=== PATIENT | male | born 1970 | race African-American/Black ===

== ENCOUNTER 2018-08-17 04:41 | Observation (INO) | payer SELFPAY ==
[~2018-08-17] VITALS: Ht 185.4 cm; Wt 129.3 kg
[~2018-08-17 04:41] MED LIST: AMLO10TA6 PO; CITA20TA6 PO; CLON0.1T PO; CLON1PAT2 TD; LISI1TAB3 PO; METH4TAB2 PO
[2018-08-17 05:06] LABS: BASO # 0.1 x10^3/uL (0.0-0.2); BASO % 1 % (0-3); EOS # 0.2 x10^3/uL (0.0-0.7); EOS % 2 % (0-3); HEMATOCRIT 43.4 % (39.0-53.0); HEMOGLOBIN 14.6 g/dL (13.0-17.5); LYMPH # 2.7 x10^3/uL (1.0-4.8); LYMPH % 30 % (24-48); MEAN CORPUSCULAR HEMOGLOBIN 28 pg (25-35); MEAN CORPUSCULAR HGB CONC 34 g/dL (31-37); MEAN CORPUSCULAR VOLUME 83 fL (79-100); MONO # 0.9 x10^3/uL (0.0-1.1); MONO % 10 % (0-9); NEUT # 5.2 x10^3uL (1.8-7.7); NEUT % 58 % (31-73); PLATELET COUNT 262 x10^3/uL (140-400); RED BLOOD COUNT 5.21 x10^6/uL (4.30-5.70); RED CELL DISTRIBUTION WIDTH 15.6 % (11.5-14.5); WHITE BLOOD COUNT 9.1 x10^3/uL (4.0-11.0)
[2018-08-17] MEDS ORDERED: methylPREDNISolone SOD SUCC PF 125 MG/2 ML VIAL. IV ONE (05:15)
[2018-08-17] MEDS ORDERED: diphenhydrAMINE 50 MG/ML VIAL IV ONE (05:15)
[2018-08-17] MEDS ORDERED: EPINEPHrine 1 MG/ML VIAL IM ONE (05:15)
[2018-08-17] MEDS ORDERED: FAMOTIDINE 20 MG/2 ML VIAL IVP ONE (05:15)
[2018-08-17 05:22] LABS: CALCIUM 9.1 mg/dL (8.5-10.1); CREATININE 1.4 mg/dL (0.7-1.3); POTASSIUM 3.3 mmol/L (3.5-5.1)
[2018-08-17 05:27] LABS: ALBUMIN 3.9 g/dL (3.4-5.0); TOTAL BILIRUBIN 0.3 mg/dL (0.2-1.0)
--- NOTE | 2018-08-17 05:51 | PHYS DOC ---
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 Patient states that he has had a similar symptom in the past when he was taking lisinopril and had severe angioedema. Patient denies any rash but states that he is having difficulty with swallowing and is feeling short of breath. He denies any chest pain. Patient is not sure what would have caused the reaction. He states that he had eaten a hot dog for dinner. Review of Systems Review of Systems Constitutional: Denies fever or chills [] HENT: Positive sore throat with tightness in the throat and difficulty swallowing [] Respiratory: Denies cough. Complains of shortness of breath. [] Cardiovascular: No additional information not addressed in HPI [] Integument: Denies rash or skin lesions [] Neurologic: Denies headache, focal weakness or sensory changes [] All other systems were reviewed and found to be within normal limits, except as documented in this note. Current Medications Current Medications Current Medications Medications (Trade) Dose Ordered Sig/Marquita Start Time Stop Time Status Last Admin Dose Admin Diphenhydramine HCl (Benadryl) 50 mg 1X ONCE 08/17/18 05:15 08/17/18 05:16 DC 08/17/18 05:04 50 MG Epinephrine HCl (Adrenalin) 0.3 mg 1X ONCE 08/17/18 05:15 08/17/18 05:16 DC 08/17/18 05:03 0.3 MG Famotidine (Pepcid Vial) 20 mg 1X ONCE 08/17/18 05:15 08/17/18 05:16 DC 08/17/18 05:07 20 MG Info (CONTRAST GIVEN -- Rx MONITORING) 1 each PRN DAILY PRN 08/17/18 06:45 08/19/18 06:44 Iohexol (Omnipaque 300 Mg/ml) 70 ml 1X ONCE 08/17/18 07:00 08/17/18 07:01 DC Methylprednisolone Sodium Succinate (SOLU-Medrol 125MG VIAL) 125 mg 1X ONCE 08/17/18 05:15 08/17/18 05:16 DC 08/17/18 05:05 125 MG Allergies Allergies Allergies Coded Allergies Type Severity Reaction Last Updated Verified lisinopril Allergy Severe angioedema/swelling 08/19/16 Yes Physical Exam Physical Exam Constitutional: Well developed, well nourished, no acute distress, non-toxic appearance. [] HENT: Normocephalic, atraumatic, bilateral external ears normal, oropharynx moist, no oral exudates, nose normal. [] Eyes: PERRLA, EOMI, conjunctiva normal, no discharge. [] Neck: Normal range of motion, no tenderness, supple. [] Cardiovascular: Regular rate and rhythm[] Lungs & Thorax: Bilateral breath sounds clear to auscultation [] Abdomen: Bowel sounds normal, soft, no tenderness. [] Skin: Warm, dry, no erythema, no rash. [] Extremities: No tenderness, no cyanosis, no clubbing, ROM intact, no edema. [] Neurologic: Alert and oriented X 3, normal motor function, normal sensory function, no focal deficits noted. [] Physical exam by Dr. Bettencourt: Constitutional: Well developed, well nourished, no acute distress, non-toxic appearance. [] HENT: Normocephalic, atraumatic, oropharynx moist, uvular edema noted Neck: Normal range of motion, no tenderness, supple, no stridor Lungs & Thorax: Bilateral breath sounds clear to auscultation [] Skin: Warm, dry, no erythema, no rash. [] Neurologic: Alert and oriented X 3, no focal deficits noted. [] Current Patient Data Vital Signs Vital Signs Date Time Temp Pulse Resp B/P (MAP) Pulse Ox O2 Delivery O2 Flow Rate FiO2 08/17/18 05:51 82 20 178/113 (134) 98 Room Air 08/17/18 04:47 98.7 98.7 Lab Values Laboratory Tests Test 08/17/18 04:58 White Blood Count 9.1 x10^3/uL (4.0-11.0) Red Blood Count 5.21 x10^6/uL (4.30-5.70) Hemoglobin 14.6 g/dL (13.0-17.5) Hematocrit 43.4 % (39.0-53.0) Mean Corpuscular Volume 83 fL (79-100) Mean Corpuscular Hemoglobin 28 pg (25-35) Mean Corpuscular Hemoglobin Concent 34 g/dL (31-37) Red Cell Distribution Width 15.6 % (11.5-14.5) H Platelet Count 262 x10^3/uL (140-400) Neutrophils (%) (Auto) 58 % (31-73) Lymphocytes (%) (Auto) 30 % (24-48) Monocytes (%) (Auto) 10 % (0-9) H Eosinophils (%) (Auto) 2 % (0-3) Basophils (%) (Auto) 1 % (0-3) Neutrophils # (Auto) 5.2 x10^3uL (1.8-7.7) Lymphocytes # (Auto) 2.7 x10^3/uL (1.0-4.8) Monocytes # (Auto) 0.9 x10^3/uL (0.0-1.1) Eosinophils # (Auto) 0.2 x10^3/uL (0.0-0.7) Basophils # (Auto) 0.1 x10^3/uL (0.0-0.2) Sodium Level 143 mmol/L (136-145) Potassium Level 3.3 mmol/L (3.5-5.1) L Chloride Level 105 mmol/L (98-107) Carbon Dioxide Level 29 mmol/L (21-32) Anion Gap 9 (6-14) Blood Urea Nitrogen 14 mg/dL (8-26) Creatinine 1.4 mg/dL (0.7-1.3) H Estimated GFR (Cockcroft-Gault) 66.0 BUN/Creatinine Ratio 10 (6-20) Glucose Level 118 mg/dL (70-99) H Calcium Level 9.1 mg/dL (8.5-10.1) Total Bilirubin 0.3 mg/dL (0.2-1.0) Aspartate Amino Transferase (AST) 22 U/L (15-37) Alanine Aminotransferase (ALT) 38 U/L (16-63) Alkaline Phosphatase 69 U/L (46-116) Total Protein 8.0 g/dL (6.4-8.2) Albumin 3.9 g/dL (3.4-5.0) Albumin/Globulin Ratio 1.0 (1.0-1.7) Laboratory Tests 08/17/18 04:58 Laboratory Tests 08/17/18 04:58 EKG EKG [] Radiology/Procedures Radiology/Procedures PROCEDURE: CT SOFT TISSUE NECK W/CONTRAST Examination: CT SOFT TISSUE NECK W/CONTRAST History: DYSPHAGIA THIS AM
IV OMNI 300 70 MLS
PREVIOUS Comparison/Correlation: 08/19/2016 CT neck soft tissue with contrast Findings: Axial images of the neck were obtained following 70 cc Omnipaque 300 IV. Sagittal and coronal reformatted images were provided. Imaging was performed from the supra orbital level to the aorticopulmonary window level. Partially visualized cerebrum and cerebellum are unremarkable. Globes and optic nerves are unremarkable. Extraocular muscles are unremarkable. Mucosal thickening of the left maxilla sinuses present. Parotid and submandibular glands are normal. The pharynx is symmetric. Epiglottis is normal. True and false cords are symmetric. Thyroid is unremarkable. There are no enlarged lymph nodes identified to involve the neck. Nonenlarged upper jugular chain lymph nodes are identified. Nonenlarged lymph nodes about the submandibular glands noted. Lung apices are unremarkable. There is no mass identified involving the aorticopulmonary window region. Trachea is unremarkable. Visualized course of the esophagus is unremarkable. Bony structures are unremarkable. Impression: No mass or enlarged lymph nodes identified. Electronically signed by: Tito Sandoval MD (08/17/2018 6:49 AM) [facility] Course & Med Decision Making Course & Med Decision Making Pertinent Labs and Imaging studies reviewed. (See chart for details) Patient moved to room upon arrival was evaluated by your medical staff and an IV was established and blood work drawn. Patient was treated with IV Benadryl, Solu-Medrol and Pepcid. Patient also given a dose of IM epi. Patient was reevaluated approximately 45 minutes after dosage of medication. Patient reports still being symptomatic. He states that it feels like there is a flap in the back of his throat that wants to close. At this point a CT scan of soft tissue neck with IV contrast is being ordered. This is pending at this time and patient is being signed out to Dr. Bettencourt at 6:00 AM. Dwayne 0600- Sign out received from Dr. Payne for patient with report of sensation of throat "closing off". Patient pending CT evaluation of soft tissue neck. CT without acute process. Labs reviewed. Patient seen and evaluated by myself. ENT exam noted uvulitis/ uvular edema. Patient continues to feel that his throat is swollen. No stridor appreciated. Patient reports history of similar experience due to lisinopril. Patient currently treated with ARB (losartan). Possible angioedema due to ARB? Cannot exclude infectious etiology. Rapid strep obtained. Empiric antibiotic initiated. Patient requiring admission for further evaluation and treatment. Discussed with Dr. Sumner (admits for PCP) who is in agreement with admission. Discussed findings and plan with patient and family, who acknowledge understanding and agreement. Dragon Disclaimer Dragon Disclaimer This electronic medical record was generated, in whole or in part, using a voice recognition dictation system. Departure Departure Impression: Primary Impression: Uvulitis Additional Impression: Hx of angioedema Disposition: ADMITTED INPATIENT Admitting Physician: Cihcho Sumner Condition: STABLE Referrals: PAUL SAHNI (PCP) Problem Qualifiers GURWINDER PAYNE Jr. DO Aug 17, 2018 05:51 VIKAS BETTENCOURT DO Aug 17, 2018 07:14
[2018-08-17] MEDS ORDERED: CONTRAST GIVEN. MC PRN (06:45)
--- NOTE | 2018-08-17 06:53 | RAD ---
Examination: CT SOFT TISSUE NECK W/CONTRAST History: DYSPHAGIA THIS AM
IV OMNI 300 70 MLS
PREVIOUS Comparison/Correlation: 08/19/2016 CT neck soft tissue with contrast Findings: Axial images of the neck were obtained following 70 cc Omnipaque 300 IV. Sagittal and coronal reformatted images were provided. Imaging was performed from the supra orbital level to the aorticopulmonary window level. Partially visualized cerebrum and cerebellum are unremarkable. Globes and optic nerves are unremarkable. Extraocular muscles are unremarkable. Mucosal thickening of the left maxilla sinuses present. Parotid and submandibular glands are normal. The pharynx is symmetric. Epiglottis is normal. True and false cords are symmetric. Thyroid is unremarkable. There are no enlarged lymph nodes identified to involve the neck. Nonenlarged upper jugular chain lymph nodes are identified. Nonenlarged lymph nodes about the submandibular glands noted. Lung apices are unremarkable. There is no mass identified involving the aorticopulmonary window region. Trachea is unremarkable. Visualized course of the esophagus is unremarkable. Bony structures are unremarkable. Impression: No mass or enlarged lymph nodes identified. Electronically signed by: Tito Sandoval MD (08/17/2018 6:49 AM) [facility]
[2018-08-17] MEDS ORDERED: IOHEXOL 300 MG/ML 100ML VIAL. IV ONE (07:00)
[2018-08-17] MEDS ORDERED: cefTRIAXone IV Push 1 GM VIAL. IVP ONE (07:30)
[2018-08-17] MEDS ORDERED: ONDANSETRON PF 4 MG/2 ML VIAL. IV PRN (07:30)
[2018-08-17] MEDS ORDERED: HYDR-2869 PO (10:13)
[2018-08-17] MEDS ORDERED: LOSA1TAB25 PO (10:13)
[2018-08-17] MEDS ORDERED: POTASSIUM CHLORIDE 10 MEQ TABLET.ER. PO ONE (10:15)
--- NOTE | 2018-08-17 10:22 | PDOC ---
Provider Note Provider Note Pt seen.H&P dictated.#[id number] ТАТЬЯНА LOGAN MD Aug 17, 2018 10:22
[2018-08-17] MEDS ORDERED: diphenhydrAMINE 50 MG/ML VIAL IVP PRN (10:30)
[2018-08-17] MEDS: cloNIDine HCL 0.1 MG TABLET PO SCH ×4 (10:40→20:14)
[2018-08-17 11:00] VITALS: BP 164/114
[2018-08-17] MEDS ORDERED: CITALOPRAM 20 MG TABLET. PO SCH (11:00)
--- NOTE | 2018-08-17 11:04 | HP ---
ADMIT DATE: 08/17/2018 ATTENDING PHYSICIAN: Dr. Logan. PRIMARY CARE PHYSICIAN: Dr. Sahni. LOCATION: 5 REASON FOR ADMISSION TO THE HOSPITAL: Angioedema, uveitis. HISTORY OF PRESENT ILLNESS: The patient is a 47-year-old male with history of hypertension, had history of angioedema with lisinopril in the past, and he was on losartan and history of hypertension. He felt like something tingling and swelling in the throat and could not breathe, came to the Emergency Room and had history of angioedema in the past, some swelling in the throat. Had a CT neck. Denies any known major obstruction. The patient was given IV Solu-Medrol, epinephrine and Benadryl, was admitted overnight for observation. Denies any fever. PAST MEDICAL HISTORY: Hypertension. PAST SURGICAL HISTORY: No surgeries. ALLERGIES: LISINOPRIL, ANGIOEDEMA. MEDS: amlodipine 10 mg , losartin 100/12.5 mg, hydralazine 50 mg po qid, citalopram 40 mg daily REVIEW OF SYMPTOMS: Denies any chest pain, shortness of breath. Only something in her throat like collapsing. PHYSICAL EXAMINATION: GENERAL: The patient is pleasant, not in any distress. No stridor, talking okay. VITAL SIGNS: Temperature 98, pulse 80, respirations 20, blood pressure 137/107, 97 on room air. HEENT: Head is atraumatic. Pupils equal. Oral cavity, slight congestion in the uvula. NECK: Supple. Thyroid not enlarged. JVD not elevated. CHEST: Symmetrical. CARDIOVASCULAR: S1, S2. LUNGS: Clear. ABDOMEN: Soft, no mass palpable. EXTERNAL GENITALIA: No Younger. RECTAL: Deferred. EXTREMITIES: No calf tenderness. There is no edema. NEUROLOGIC: Moving all extremities. LABORATORY DATA: White count 9, hemoglobin 14, platelets 262. Electrolytes show sodium 143, potassium 3.3, chloride 105, bicarbonate 29, BUN 14, creatinine 1.4, glucose 118. LFTs were normal. Had a CT soft tissue of the neck, which shows no basic lymphadenopathy or soft tissue swelling at this point. FINAL IMPRESSION: 1. Angioedema, possible uveitis Vs ARB allergies 2. Hypertension.refractory 3. Mild elevated creatinine. 4. History of angioedema with lisinopril. PLAN: At this time, the patient was on losartan, which was discontinued, given epinephrine, Solu-Medrol and Benadryl. IV fluids and clear liquid diet, monitor overnight, could be discharged tomorrow. ТАТЬЯНА LOGAN MD DR: YUDI/digna JOB#: [id number] / [id number] elias SAHNI DR [facility]
[2018-08-17] MEDS: methylPREDNISolone SOD SUCC PF 40 MG/ML VIAL. IV SCH ×2 (11:10→21:18)
[2018-08-17] MEDS: CITALOPRAM 20 MG TABLET. PO SCH (11:10)
[2018-08-17] MEDS: amLODIPine BESYLATE 10 MG TABLET PO SCH (11:10)
[2018-08-17 15:17] VITALS: BP 147/102
[2018-08-17] MEDS ORDERED: diphenhydrAMINE HCL 25 MG CAPSULE PO PRN (16:45)
[2018-08-17 19:00] VITALS: BP 151/109
[2018-08-17 23:02] VITALS: BP 136/101
[2018-08-18 03:00] VITALS: BP 158/114
[2018-08-18] MEDS: methylPREDNISolone SOD SUCC PF 40 MG/ML VIAL. IV SCH (05:37)
[2018-08-18 06:34] VITALS: BP 150/108
[2018-08-18] MEDS: CITALOPRAM 20 MG TABLET. PO SCH (08:33)
[2018-08-18] MEDS: cloNIDine HCL 0.1 MG TABLET PO SCH (08:33)
[2018-08-18] MEDS: amLODIPine BESYLATE 10 MG TABLET PO SCH (08:33)
[2018-08-18 09:02] LABS: CALCIUM 9.2 mg/dL (8.5-10.1); CREATININE 1.6 mg/dL (0.7-1.3); GFR 56.6; POTASSIUM 3.8 mmol/L (3.5-5.1)
[2018-08-18] MEDS ORDERED: POTA10TA12 PO (09:36)
[2018-08-18] MEDS ORDERED: HYDR-2869 PO (09:36)
[2018-08-18] MEDS ORDERED: HYDR12.58 PO (09:36)
--- NOTE | 2018-08-18 09:40 | PDOC ---
PROGRESS NOTES Subjective Subjective feels better , bp still high Objective Objective Vital Signs Date Time Temp Pulse Resp B/P (MAP) Pulse Ox O2 Delivery O2 Flow Rate FiO2 08/18/18 08:33 73 150/108 08/18/18 08:00 Room Air 08/18/18 06:34 98.3 20 94 98.3 Intake and Output 08/18/18 07:00 Intake Total 1700 ml Output Total 3 ml Balance 1697 ml Intake Oral 1700 ml Output Urine Total 2 ml Stool Total 1 ml # Voids 5 Physical Exam Abdomen: Normal bowel sounds, Soft Heart: Regular rate, Normal S1, Normal S2 General: Alert HEENT: Atraumatic, Other (no swelling throat) Lungs: Clear to auscultation MUSCULOSKELETAL: No swelling Neuro: Normal speech Psych/Mental Status: Mental status NL Skin: No breakdown Diagnosis Problem List Problems Medical Problems: (1) Allergic reaction Status: Acute (2) Hx of angioedema Status: Acute (3) Uvulitis Status: Acute Assessment Assessment Problems Medical Problems: (1) Allergic reaction Status: Acute (2) Hx of angioedema Status: Acute (3) Uvulitis Status: Acute FINAL IMPRESSION: 1. Angioedema, possible due to Losartin. 2. Hypertension. 3. Mild elevated creatinine.1.6 4. History of angioedema with lisinopril. 5,Depression PLAN: cr 1.6 will do sono kidneys d/c home today see dudley linares take RM/ARB strep neg. At this time, the patient was on losartan, which was discontinued, given epinephrine, Solu-Medrol and Benadryl. IV fluids and clear liquid diet, monitor overnight, could be discharged tomorrow. Plan Plan of Care Problems Medical Problems: (1) Allergic reaction Status: Acute (2) Hx of angioedema Status: Acute (3) Uvulitis Status: Acute Comment Review of Relevant I have reviewed the following items martín (where applicable) has been applied. Labs Laboratory Tests Test 08/18/18 08:00 Sodium Level 142 mmol/L (136-145) Potassium Level 3.8 mmol/L (3.5-5.1) Chloride Level 105 mmol/L (98-107) Carbon Dioxide Level 27 mmol/L (21-32) Anion Gap 10 (6-14) Blood Urea Nitrogen 21 mg/dL (8-26) Creatinine 1.6 mg/dL (0.7-1.3) Estimated GFR (Cockcroft-Gault) 56.6 Glucose Level 127 mg/dL (70-99) Calcium Level 9.2 mg/dL (8.5-10.1) Medications Current Medications Amlodipine Besylate (Norvasc) 10 mg DAILY PO Last administered on 08/18/18at 08 :33; Start 08/17/18 at 11:00 Citalopram Hydrobromide (CeleXA) 20 mg DAILY PO ; Start 08/17/18 at 11:00; Stop 08/17/18 at 11:05; Status DC Citalopram Hydrobromide (CeleXA) 40 mg DAILY PO Last administered on at 08:33; Start 08/17/18 at 11:30 Clonidine HCl (Catapres Tts-2) 1 patch WEEKLY TD ; Start 08/24/18 at 09:00; Status UNV Clonidine HCl (Catapres) 0.1 mg TID PO Last administered on 08/18/18at 08:33; Start 08/17/18 at 11:00 Diphenhydramine HCl (Benadryl) 25 mg PRN Q6HRS PRN IVP ITCHING Last administered on 08/17/18at 11:13; Start 08/17/18 at 10:30; Stop 08/17/18 at 16 :42; Status DC Diphenhydramine HCl (Benadryl) 50 mg PRN Q6HRS PRN PO ITCHING Last administered on 08/17/18at 21:18; Start 08/17/18 at 16:45 Methylprednisolone Sodium Succinate (SOLU-Medrol 40MG VIAL) 40 mg Q8HRS IV Last administered on 08/18/18at 05:37; Start 08/17/18 at 11:00 Potassium Chloride (Klor-Con) 10 meq 1X ONCE PO Last administered on at 11:09; Start 08/17/18 at 10:15; Stop 08/17/18 at 10:19; Status DC Vitals/I & O Vital Sign - Last 24 Hours 08/17/18 08/17/18 08/17/18 08/17/18 11:00 11:10 11:10 11:28 Temp 98.4 98.4 Pulse 89 91 91 Resp 20 B/P (MAP) 164/114 (131) 164/118 164/118 Pulse Ox 97 O2 Delivery Room Air Room Air 08/17/18 08/17/18 08/17/18 08/17/18 15:17 16:50 19:00 20:00 Temp 97.8 97.7 97.8 97.7 Pulse 93 93 84 Resp 22 20 B/P (MAP) 147/102 (117) 147/102 151/109 (123) Pulse Ox 99 97 O2 Delivery Room Air Room Air Room Air 08/17/18 08/17/18 08/18/18 08/18/18 20:14 23:02 03:00 06:34 Temp 98.1 97.8 98.3 98.1 97.8 98.3 Pulse 84 70 73 73 Resp 20 20 20 B/P (MAP) 151/109 136/101 (113) 158/114 (129) 150/108 (122) Pulse Ox 100 96 94 O2 Delivery Room Air Room Air Room Air 08/18/18 08/18/18 08/18/18 08:00 08:33 08:33 Pulse 73 73 B/P (MAP) 150/108 150/108 O2 Delivery Room Air Intake and Output 08/17/18 08/17/18 08/18/18 15:00 23:00 07:00 Intake Total 500 ml 700 ml 500 ml Output Total 3 ml Balance 500 ml 697 ml 500 ml ТАТЬЯНА LOGAN MD Aug 18, 2018 09:40
[2018-08-18 10:51] VITALS: BP 137/92
--- NOTE | 2018-08-18 15:32 | RAD ---
RENAL COMPLETE BILATERAL, US RENAL DUPLEX Clinical Indication: increased creatine Comparison: None. Technique: Multiple grayscale, color flow, and Doppler spectral waveform analysis images of the abdominal aorta and renal arteries were obtained. Real time ultrasound imaging of the kidneys and bladder. Findings: Abdominal aorta peak systolic velocity: 109 cm/sec. Only the proximal abdominal aorta is able to be visualized due to overlying bowel gas. Caliber is normal. Right main renal artery peak systolic velocity: 69 cm/sec. Right renal artery to aorta ratio: 0.6 Left main renal artery peak systolic velocity: 61 cm/sec. Left renal artery to aorta ratio: 0.6 Bilateral resistive indices are normal. The right kidney measures 11.6 cm. The left kidney measures 10.6 cm. Kidneys are normal in echotexture. Normal cortical medullary differentiation. No hydronephrosis. Urinary bladder is normal. IMPRESSION: 1. Kidneys are normal in appearance. 2. No evidence of hemodynamically significant renal artery stenosis. Electronically signed by: Rc Roberson MD (08/18/2018 3:28 PM) [id number]
--- NOTE | 2018-08-23 19:50 | PDOC ---
Provider Note Provider Note Discharge summary dictated. #[id number] ТАТЬЯНА LOGAN MD Aug 23, 2018 19:50
--- NOTE | 2018-08-23 20:06 | DS ---
DATE OF DISCHARGE: 08/18/2018 REASON FOR ADMISSION TO THE HOSPITAL: Swelling of the throat, possible angioedema secondary to angiotensin receptor kimberly medication, losartan. CONSULTATIONS: None. PROCEDURES DONE: CT of the neck. COMPLICATIONS NOTED: None. HOSPITAL COURSE: The patient is a 47-year-old male who has history of allergy to LISINOPRIL and he is on losartan. He developed swelling in the throat, something stuck in the throat and it was hard to him talking or breathing, came to the Emergency Room, had a throat swelling. The patient had a strep throat that was negative and it was thought it could be from losartan. The patient was given IV Solu-Medrol, IV Benadryl and got subcutaneous epinephrine. The patient's condition remained stable, was watched for 24 hours. He is able to talk, able to eat and swallow pills and the patient was discharged, discontinued losartan. FINAL DIAGNOSES: 1. Angioedema, probably secondary to Losartan. The patient has known history of angioedema to LISINOPRIL. 2. Hypertension. 3. Mild renal insufficiency. CBC was normal. Chem profile, potassium 3.3, was replaced. Creatinine 1.4, went up to 1.6. Had a rapid strep that was negative and had a CT neck. Ultrasound of the kidney shows normal kidney appearance, no renal artery stenosis. CT soft tissue of the neck shows no masses or enlarged lymph nodes. The patient is scheduled to see his PCP in 1 week. Monitor kidney function in 1 week. ТАТЬЯНА LOGAN MD DR: YUDI/digna JOB#: [id number] / [id number] PAUL Pratt
[2018-08-24] MEDS ORDERED: cloNIDine TTS-2 1 PATCH PATCH TD SCH (09:00)
== END 2018-08-18 12:30 | disposition home or self-care (01) ==
LOC: ER 04:41 → 5 SOUTH 07:25 → UNDOADMIN 07:25 → 5 SOUTH 07:25
PROVIDERS: ADMIT Internal Medicine; ATTEND Internal Medicine
DX: T78.3XXA Angioneurotic edema, initial encounter (principal); F32.9 Major depressive disorder, single episode, unspecified; I10 Essential (primary) hypertension; K12.2 Cellulitis and abscess of mouth; Z88.8 Allergy status to other drugs, medicaments and biological substances; R79.89 Other specified abnormal findings of blood chemistry
CPT/HCPCS: 36415; 70491; 76770; 80048; 80053; 85025; 87070; 87880; 93975; 96372; 96374; 96375; 96376; 99284; G0378; J0171; J0696; J1200; J2920; J2930; J3490; Q0163; Q9967; G0379

== ENCOUNTER 2019-10-13 21:27 | Inpatient (IN) | payer SELFPAY ==
[~2019-10-13] VITALS: Ht 182.9 cm; Wt 117.2 kg
[~2019-10-13 21:27] MED LIST changes: -AMLO10TA6 PO; +AMLO10TA8 PO; -CLON1PAT2 TD; +CLON1PAT6 TD; +HYDR-2869 PO; +HYDR12.58 PO; +LISI1TAB23 PO; -LISI1TAB3 PO; +LOSA1TAB25 PO; +POTA10TA12 PO
[2019-10-13] MEDS ORDERED: diphenhydrAMINE 50 MG/ML VIAL IVP ONE (21:45)
[2019-10-13] MEDS ORDERED: FAMOTIDINE 20 MG/2 ML VIAL IVP ONE (21:45)
[2019-10-13] MEDS ORDERED: methylPREDNISolone SOD SUCC PF 125 MG/2 ML VIAL. IV ONE (21:45)
[2019-10-13] MEDS ORDERED: IOHEXOL 300 MG/ML 100ML VIAL. ONE (22:01)
--- NOTE | 2019-10-13 22:09 | PHYS DOC ---
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 She states he ate cheese and crackers with some summer sausage prior to going to bed, states he woke up with difficulty swallowing, feels like there is a piece of skin caught in his throat. He was able to tolerate his secretions at this time, states he drank some water which somewhat felt better. He states the feeling is similar to when he had a reaction to lisinopril with angioedema. Patient has no obvious swelling of his oropharynx on examination. Nothing makes his symptoms worse on exam. Patient denies painful swallowing. Review of Systems Review of Systems Constitutional: Denies fever or chills [] HENT: difficulty swallowing/feels like airway closing Respiratory: Denies cough or shortness of breath [] Cardiovascular: No additional information not addressed in HPI [] GI: Denies abdominal pain, nausea, vomiting, bloody stools or diarrhea [] Musculoskeletal: Denies back pain or joint pain [] Integument: Denies rash or skin lesions [] Neurologic: Denies headache, focal weakness or sensory changes [] All other systems were reviewed and found to be within normal limits, except as documented in this note. Current Medications Current Medications Current Medications Medications (Trade) Dose Ordered Sig/Marquita Start Time Stop Time Status Last Admin Dose Admin Diphenhydramine HCl (Benadryl) 50 mg 1X ONCE 10/13/19 21:45 10/13/19 21:47 DC 10/13/19 21:45 50 MG Famotidine (Pepcid Vial) 20 mg 1X ONCE 10/13/19 21:45 10/13/19 21:47 DC 10/13/19 21:45 20 MG Glucagon (Glucagen) 1 mg STK-MED ONCE 10/13/19 22:46 10/13/19 22:46 DC Hydralazine HCl (Apresoline Inj) 10 mg 1X ONCE 10/13/19 23:00 10/13/19 23:01 DC 10/13/19 23:08 10 MG Info (CONTRAST GIVEN -- Rx MONITORING) 1 each PRN DAILY PRN 10/13/19 22:15 10/15/19 22:14 Iohexol (Omnipaque 300 Mg/ml) 100 ml STK-MED ONCE 10/13/19 22:01 10/13/19 22:01 DC Labetalol HCl (Normodyne Iv Push) 10 mg 1X ONCE 10/14/19 00:00 10/14/19 00:01 DC 10/14/19 00:03 10 MG Lorazepam (Ativan Inj) 1 mg 1X ONCE 10/13/19 23:00 10/13/19 23:01 DC 10/13/19 23:07 1 MG Methylprednisolone Sodium Succinate (SOLU-Medrol 125MG VIAL) 125 mg 1X ONCE 10/13/19 21:45 10/13/19 21:47 DC 10/13/19 21:45 125 MG Allergies Allergies Allergies Coded Allergies Type Severity Reaction Last Updated Verified lisinopril Allergy Severe angioedema/swelling 08/19/16 Yes Physical Exam Physical Exam Constitutional: Well developed, well nourished, mild distress, non-toxic appearance. [] HENT: Normocephalic, atraumatic, bilateral external ears normal, oropharynx moist, no oral exudates, nose normal, uvula mildly swollen[] Eyes: PERRLA, EOMI, conjunctiva normal, no discharge. [] Neck: Normal range of motion, no tenderness, supple, no stridor. [] Cardiovascular:Heart rate regular rhythm, no murmur [] Lungs & Thorax: Bilateral breath sounds clear to auscultation [] Abdomen: Bowel sounds normal, soft, no tenderness, no masses, no pulsatile masses. [] Extremities: No tenderness, no cyanosis, no clubbing, ROM intact, no edema. [] Neurologic: Alert and oriented X 3, no focal deficits noted. [] Psychologic: Affect normal, judgement normal, mood normal. [] Current Patient Data Vital Signs Vital Signs Date Time Temp Pulse Resp B/P (MAP) Pulse Ox O2 Delivery O2 Flow Rate FiO2 10/14/19 00:03 102 194/120 10/13/19 23:51 20 97 10/13/19 21:30 99.5 Room Air 99.5 EKG EKG [] Radiology/Procedures Radiology/Procedures [facility] [address] [place] [address] IMAGING REPORT Signed PATIENT: BOB THURSTON ACCOUNT: [id number] : 1970 LOCATION: ER AGE: 49 SEX: M EXAM STATUS: REG ER ORD. PHYSICIAN: NATASHA VASQUEZ MD REASON: lump/swelling in throat, cant swallow PROCEDURE: CT SOFT TISSUE NECK W/CONTRAST Exam: CT neck with contrast INDICATION: Difficulty swallowing TECHNIQUE: Sequential axial images through the neck obtained following the administration of 60 mL of Omni 300 IV contrast. Sagittal and coronal reformatted images were reconstructed from the axial data and reviewed. Comparisons: 08/17/2018 FINDINGS: Visualized intracranial structures are unremarkable. Mild mucosal thickening is noted within the right maxillary sinus. Cervical vasculature is patent. Mild enlargement of the palatine tonsils. Otherwise, nasopharynx, oropharynx, hypopharynx and larynx are patent. Thyroid and salivary glands are within normal limits. No enlarged cervical lymph nodes are identified. No suspicious osseous lesions or acute fractures. Visualized lung apices are clear. IMPRESSION: Mild pontine tonsil enlargement, may be reflective of underlying infectious or inflammatory process. Airways are otherwise patent. Exposure: One or more of the following in the visualized dose reduction techniques were utilized for this examination: 1. Automated exposure control 2. Adjustment of the MA and/or KV according to patient size 3. Use of iterative of reconstructive technique Electronically signed by: Lorena Bay MD (10/13/2019 10:25 PM) [id number] DICTATED and SIGNED BY: LORENA BAY MD DATE: 10/13/192224 [] Course & Med Decision Making Course & Med Decision Making Pertinent Labs and Imaging studies reviewed. (See chart for details) []49-year-old male with history of hypertension presents to the emergency department with complaints of difficulty swallowing, concerning that he has swelling in his throat. She states he ate cheese and crackers with some summer sausage prior to going to bed, states he woke up with difficulty swallowing, feels like there is a piece of skin caught in his throat. He was able to tolerate his secretions at this time, states he drank some water which somewhat felt better. He states the feeling is similar to when he had a reaction to lisinopril with angioedema. Patient has no obvious swelling of his oropharynx on examination. Nothing makes his symptoms worse on exam. Patient denies painful swallowing. Discussed CT findings with patient Physical exam with marce Solumedrol, Benadryl, Pepcid given in ER for possible allergic reaction Ativan 1mg and hydralazine given - patient states BP elevated and has been out of medications BP remains elevated - labetalol 10mg IV x 1 Despite treatment of BP, remains 197/122 Plan to admit with further treatment of BP - patient is unknown of blood pressure medications at home Will consult GI with dysphagia concerns while here Discussed with patient/family at bedside Dragon Disclaimer Dragon Disclaimer This electronic medical record was generated, in whole or in part, using a voice recognition dictation system. Departure Departure Impression: Primary Impression: Hypertensive urgency Additional Impression: Dysphagia Disposition: ADMITTED INPATIENT Admitting Physician: BARBIE Condition: STABLE Referrals: PAUL SAHNI (PCP) Critical Care Time Critical care time was 35 minutes exclusive of procedures. Problem Qualifiers Additional Impression: Dysphagia Dysphagia type: unspecified Qualified Codes: R13.10 - Dysphagia, unspecified NATASHA VASQUEZ MD Oct 13, 2019 22:09
[2019-10-13] MEDS ORDERED: IOHEXOL 300 MG/ML 100ML VIAL. IV ONE (22:15)
[2019-10-13] MEDS ORDERED: CONTRAST GIVEN. MC PRN (22:15)
--- NOTE | 2019-10-13 22:28 | RAD ---
Exam: CT neck with contrast INDICATION: Difficulty swallowing TECHNIQUE: Sequential axial images through the neck obtained following the administration of 60 mL of Omni 300 IV contrast. Sagittal and coronal reformatted images were reconstructed from the axial data and reviewed. Comparisons: 08/17/2018 FINDINGS: Visualized intracranial structures are unremarkable. Mild mucosal thickening is noted within the right maxillary sinus. Cervical vasculature is patent. Mild enlargement of the palatine tonsils. Otherwise, nasopharynx, oropharynx, hypopharynx and larynx are patent. Thyroid and salivary glands are within normal limits. No enlarged cervical lymph nodes are identified. No suspicious osseous lesions or acute fractures. Visualized lung apices are clear. IMPRESSION: Mild pontine tonsil enlargement, may be reflective of underlying infectious or inflammatory process. Airways are otherwise patent. Exposure: One or more of the following in the visualized dose reduction techniques were utilized for this examination: 1. Automated exposure control 2. Adjustment of the MA and/or KV according to patient size 3. Use of iterative of reconstructive technique Electronically signed by: Lorena Mckeon MD (10/13/2019 10:25 PM) [id number]
[2019-10-13] MEDS ORDERED: GLUCAGON,HUMAN RECOMBINANT 1 MG/ML VIAL. ONE (22:46)
[2019-10-13] MEDS ORDERED: GLUCAGON,HUMAN RECOMBINANT 1 MG/ML VIAL. IV ONE (23:00)
[2019-10-13] MEDS ORDERED: hydrALAZINE 20 MG/ML VIAL. IVP ONE (23:00)
[2019-10-14] VITALS (7 sets, daily range): BP systolic 150–219; BP diastolic 85–127
[2019-10-14] MEDS ORDERED: LABETALOL 20 MG/4 ML DISP.SYRIN. IVP ONE
[2019-10-14] MEDS ORDERED: ACETAMINOPHEN 325 MG TABLET. PO PRN (00:45)
[2019-10-14] MEDS ORDERED: ONDANSETRON PF 4 MG/2 ML VIAL. IV PRN ×2 (00:45→07:45)
[2019-10-14] MEDS ORDERED: hydrALAZINE 25 MG TABLET PO ONE (00:45)
[2019-10-14] MEDS: LABETALOL 20 MG/4 ML DISP.SYRIN. IVP PRN ×3 (02:31→17:14)
[2019-10-14] MEDS ORDERED: CHLO25TA2 PO (03:36)
[2019-10-14] MEDS ORDERED: CITA40TA5 PO (03:36)
[2019-10-14] MEDS ORDERED: NIFE60TA14 PO (03:36)
[2019-10-14] MEDS ORDERED: POTA8TAB PO (03:36)
[2019-10-14] MEDS ORDERED: CYCL10TA2 PO (03:36)
--- NOTE | 2019-10-14 07:17 | NUR ---
Patient arrived to unit at approx 0135 accompanied by refrigeration service technician. BP elevated, assessment complete. Resting comfortably on RA. No complaints of pain at this time. Patient states that he has not taken his meds for a couple months d/t not being able to afford them. Patient is on work comp for a back inj. Spoke to patient about the importance of medication compliance. Orientated pt to unit. call light in reach. bed in low locked postition, reminded patient to call for help when ambulating. Will continue to monitor.
[2019-10-14] MEDS ORDERED: ZOLPIDEM 5 MG TABLET. PO PRN (07:45)
[2019-10-14] MEDS ORDERED: DOCUSATE SODIUM 100 MG CAPSULE. PO PRN (07:45)
[2019-10-14] MEDS ORDERED: ALBUTEROL SULFATE 2.5 MG/3 ML NEBU. NEB PRN (07:45)
--- NOTE | 2019-10-14 09:17 | PDOC2 ---
GI CONSULT Reason For Consult: dysphagia HPI: HPI: 49 y/o male who ate cheese, crackers, and sausage last night. Also drank a cocktail, then had a glass of water before bed. No dysphagia. Awoke during the night, felt a "fullness" in mid throat, throat felt dry, started coughing. Tells me didn't cough/vomit anything up, later says he vomited. He's very hungry now. He feels the same feeling in his throat now when he says the word "cough." Admitted twice in the past for similar symptoms - h/o angioedema w/ RM-I, then angioedema and/or uvulitis vs ARB allergy. This time says they were told his uvula was swollen and ER note indicates uvulitis. Denies heartburn and reflux but says he "drinks water before bed to avoid acid reflux." No odynophagia. No chronic n/v. No abd pain. H/o irregular bowel habits - most recently abdomen feels softer than it ever has and he's been stooling twice daily. No hematemesis, hematochezia, or melena. No weight loss. No previous EGD or colonoscopy. No GB, liver, pancreas, or PUD history. Non- compliant w/ anti-hypertensives due to cost, has not followed-up w/ [facility]. He and his talk a lot about how he's on disability for back injury, she works and goes to school, they have a child, etc. BP 241/120 during my interview. PMH: PMH: asthma, HTN, CKD, mumps, depression/anxiety, back pain FH: Family History: No pertinent hx Social History: Smoke: Quit (quit cigarettes but now vapes) ALCOHOL: other (cocktail int he afternoon 3 times weekly) Drugs: None ROS: GEN: Denies fevers, chills, sweats HEENT: Denies blurred vision, sore throat CV: Denies chest pain RESP: Denies shortness of air, cough GI: Per HPI : Denies hematuria, dysuria ENDO: Denies weight changes NEURO: Denies confusion, dizziness MSK: +back pain SKIN: Denies jaundice, pruritus Vitals: Vitals: Vital Signs Date Time Temp Pulse Resp B/P (MAP) Pulse Ox O2 Delivery O2 Flow Rate FiO2 2/7/20 07:00 98.0 82 20 204/127 (152) 98 Room Air 98.0 Allergies: Coded Allergies: lisinopril (Verified Allergy, Severe, angioedema/swelling, 08/19/16) Medications: Current Medications Medications (Trade) Dose Ordered Sig/Marquita Route PRN Reason Start Time Stop Time Status Last Admin Dose Admin Diphenhydramine HCl (Benadryl) 50 mg 1X ONCE IVP 10/13/19 21:45 10/13/19 21:47 DC 10/13/19 21:45 Famotidine (Pepcid Vial) 20 mg 1X ONCE IVP 10/13/19 21:45 10/13/19 21:47 DC 10/13/19 21:45 Methylprednisolone Sodium Succinate (SOLU-Medrol 125MG VIAL) 125 mg 1X ONCE IV 10/13/19 21:45 10/13/19 21:47 DC 10/13/19 21:45 Iohexol (Omnipaque 300 Mg/ml) 60 ml 1X ONCE IV 10/13/19 22:15 10/13/19 22:16 DC 10/13/19 22:06 Glucagon (Glucagen) 1 mg 1X ONCE IV 10/13/19 23:00 10/13/19 23:01 DC 10/13/19 22:49 Lorazepam (Ativan Inj) 1 mg 1X ONCE IVP 10/13/19 23:00 10/13/19 23:01 DC 10/13/19 23:07 Hydralazine HCl (Apresoline Inj) 10 mg 1X ONCE IVP 10/13/19 23:00 10/13/19 23:01 DC 10/13/19 23:08 Labetalol HCl (Normodyne Iv Push) 10 mg 1X ONCE IVP 10/14/19 00:00 10/14/19 00:01 DC 10/14/19 00:03 Hydralazine HCl (Apresoline) 25 mg 1X ONCE PO 10/14/19 00:45 10/14/19 00:46 DC 10/14/19 01:03 Labetalol HCl (Normodyne Iv Push) 10 mg PRN Q6HRS PRN IVP ELEVATED BP, SEE COMMENTS 10/14/19 00:45 10/14/19 02:31 Nicardipine HCl 50 mg/Sodium Chloride 250 ml @ 25 mls/hr CONT PRN IV SEE I/O RECORD 10/14/19 07:45 10/14/19 08:21 Imaging: Imaging: Soft Tissue Neck CT IMPRESSION: Mild pontine tonsil enlargement, may be reflective of underlying infectious or inflammatory process. Airways are otherwise patent. PE: GEN: NAD HEENT: Atraumatic, PERRL LUNGS: CTAB HEART: RRR ABD: NABS, S/ND/NT EXTREMITY: No edema SKIN: No rashes, no jaundice NEURO/PSYCH: A & O 3 A/P: A/P: Globus - h/o angioedema/uvulitis HTN, non-compliance ?GERD CRC screen - none +vaping -- Try clears, ADAT. Start PPI and monitor swallowing. Probably would benefit from EGD at some point - needs hypertension addressed first. Hasn't had labs yet - CBC and CMP ordered by ER, await these. VITA BALL Oct 14, 2019 09:17
[2019-10-14] MEDS ORDERED: CALCIUM CARBONATE 500 MG TAB.CHEW PO PRN (09:30)
[2019-10-14] MEDS: PANTOPRAZOLE 40 MG TABLET.DR. PO SCH (09:34)
[2019-10-14] MEDS ORDERED: POLYETHYLENE GLYCOL 3350 17 GM PACKET. PO PRN (10:15)
[2019-10-14] MEDS ORDERED: diphenhydrAMINE 50 MG/ML VIAL IVP PRN (10:30)
[2019-10-14] MEDS: ACETAMINOPHEN 325 MG TABLET. PO PRN (10:32)
[2019-10-14 10:36] LABS: BASO % 0 % (0-3); EOS % 0 % (0-3); HEMATOCRIT 48.3 % (39.0-53.0); LYMPH # 0.8 x10^3/uL (1.0-4.8); LYMPH % 9 % (24-48); MEAN CORPUSCULAR HEMOGLOBIN 28 pg (25-35); MEAN CORPUSCULAR HGB CONC 33 g/dL (31-37); MEAN CORPUSCULAR VOLUME 85 fL (79-100); MONO # 0.3 x10^3/uL (0.0-1.1); MONO % 3 % (0-9); NEUT # 8.2 x10^3/uL (1.8-7.7); NEUT % 88 % (31-73); PLATELET COUNT 239 x10^3/uL (140-400); RED BLOOD COUNT 5.65 x10^6/uL (4.30-5.70); RED CELL DISTRIBUTION WIDTH 15.6 % (11.5-14.5); WHITE BLOOD COUNT 9.3 x10^3/uL (4.0-11.0)
[2019-10-14 10:53] LABS: ALBUMIN 3.9 g/dL (3.4-5.0); ALBUMIN/GLOBULIN RATIO 0.9 (1.0-1.7); CALCIUM 9.3 mg/dL (8.5-10.1); CREATININE 1.6 mg/dL (0.7-1.3); GFR 56.1; POTASSIUM 3.4 mmol/L (3.5-5.1); PROTHROMBIN TIME PATIENT 13.1 SEC (11.7-14.0); TOTAL BILIRUBIN 0.5 mg/dL (0.2-1.0); TOTAL PROTEIN 8.2 g/dL (6.4-8.2)
--- NOTE | 2019-10-14 11:02 | PDOC1 ---
History and Physical Date of Admission Date of Admission 10/14/2019 Identification/Chief Complaint Chief Complaint I couldn't swallow History of Present Illness History of Present Illness Patient is a 49-year-old gentleman with past medical history of hypertension and major depression who has a severe allergy to christian inhibitors. Apparently he was diagnosed with angioedema. The patient unfortunately due to monetary restraints has not been able to afford his blood pressure medications and was found to have quite elevated hypertension during his admission in the emergency department. In the patient had a CT scan of his neck with hollowing results: Mild pontine tonsil enlargement, may be reflective of underlying infectious or inflammatory process. Airways are otherwise patent. Patient did not have stridor described during the ER visit. Patient is not exhibiting stridor during my evaluation. At the time of my visit the patient's blood pressure was greater than 200 despite Cardizem drip. Patient also started presenting encephalopathy-type of symptoms he is not slurring his speech is not exhibiting neurological deficits cranial nerves seem intact grossly. The patient denies chest pressure no palpitations no shortness of breath has been reported. Patient is quite tearful, he suffers from major depression and had been taking an antidepressant but it is unclear when was the last time he took his medications again due to financial constraints. Reassurance has been provided and the plan of care has been explained detail. Discussed with nursing staff at bedside No headache no blurred vision or double vision no slurred speech no hemiparesis Replete 90 no nausea vomiting or diarrhea no other symptoms reported Past Medical History Cardiovascular: HTN Psych: Depression Past Surgical History Past Surgical History: No pertinent history Family History Family History: Other (reviewed and found negative noncontributory) Social History Smoke: Quit (quit cigarettes but now vapes) ALCOHOL: other (cocktail int he afternoon 3 times weekly) Drugs: None Current Problem List Problem List Problems Medical Problems: (1) Dysphagia Status: Acute (2) Hypertensive urgency Status: Acute Current Medications Current Medications Current Medications Medications (Trade) Dose Ordered Sig/Marquita Start Time Stop Time Status Last Admin Dose Admin Acetaminophen (Tylenol) 650 mg PRN Q4HRS PRN 10/14/19 07:45 10/14/19 10:32 650 MG Albuterol Sulfate (Ventolin Neb Soln) 2.5 mg PRN Q4HRS PRN 10/14/19 07:45 Calcium Carbonate/ Glycine (Tums) 500 mg PRN AFTMEALHC PRN 10/14/19 09:30 Diphenhydramine HCl (Benadryl) 25 mg PRN Q6HRS PRN 10/14/19 10:30 10/14/19 10:32 25 MG Docusate Sodium (Colace) 100 mg PRN BID PRN 10/14/19 07:45 Famotidine (Pepcid Vial) 20 mg 1X ONCE 10/13/19 21:45 10/13/19 21:47 DC 10/13/19 21:45 20 MG Glucagon (Glucagen) 1 mg STK-MED ONCE 10/13/19 22:46 10/13/19 22:46 DC Hydralazine HCl (Apresoline Inj) 10 mg 1X ONCE 10/13/19 23:00 10/13/19 23:01 DC 10/13/19 23:08 10 MG Hydralazine HCl (Apresoline) 25 mg 1X ONCE 10/14/19 00:45 10/14/19 00:46 DC 10/14/19 01:03 25 MG Info (CONTRAST GIVEN -- Rx MONITORING) 1 each PRN DAILY PRN 10/13/19 22:15 10/15/19 22:14 Iohexol (Omnipaque 300 Mg/ml) 100 ml STK-MED ONCE 10/13/19 22:01 10/13/19 22:01 DC Labetalol HCl (Normodyne Iv Push) 10 mg PRN Q6HRS PRN 10/14/19 00:45 10/14/19 02:31 10 MG Lorazepam (Ativan Inj) 1 mg 1X ONCE 10/13/19 23:00 10/13/19 23:01 DC 10/13/19 23:07 1 MG Methylprednisolone Sodium Succinate (SOLU-Medrol 125MG VIAL) 125 mg 1X ONCE 10/13/19 21:45 10/13/19 21:47 DC 10/13/19 21:45 125 MG Nicardipine HCl 50 mg/Sodium Chloride 250 ml @ 25 mls/hr CONT PRN 10/14/19 07:45 10/14/19 08:21 25 MLS/HR Ondansetron HCl (Zofran) 4 mg PRN Q4HRS PRN 10/14/19 07:45 Pantoprazole Sodium (Protonix) 40 mg DAILYAC 10/14/19 10:00 10/14/19 09:34 40 MG Polyethylene Glycol (miraLAX PACKET) 17 gm PRN DAILY PRN 10/14/19 10:15 Zolpidem Tartrate (Ambien) 5 mg PRN QHS PRN 10/14/19 07:45 Allergies Allergies Allergies Coded Allergies Type Severity Reaction Last Updated Verified lisinopril Allergy Severe angioedema/swelling 08/19/16 Yes ROS Review of System CONSTITUTIONAL: No fever or chills EYES: No recent changes SKIN: No rash or itching CARDIOVASCULAR: No chest pain, syncope, palpitations, or edema RESPIRATORY: No SOB or cough GASTROINTESTINAL: No nausea, vomiting or abdominal pain NEUROLOGICAL: No headaches or weakness ENDOCRINE: No cold or heat intolerance GENITOURINARY: No urgency or frequency of urination MUSCULOSKELETAL: No back pain or joint pain LYMPHATICS: No enlarged lymph nodes PSYCHIATRIC: No anxiety or depression Physical Exam Physical Exam Gen.: well-developed well-nourished in no apparent distress Head: Normal shape atraumatic Eyes: Pupils equal reactive to light and accommodation, normal conjunctivae and lids Ears: Normal shape Nose: Normal shape no trauma Mouth: No exudates of the back of throat no thrush no lesions Neck: Supple no JVD no carotid bruit or lymphadenopathy no thyromegaly Chest: Lungs clear to auscultation with good inspiratory effort no crackles rales or rhonchi Cardiovascular: S1-S2 regular rhythm no murmurs gallops or rubs Abdomen: Bowel sounds present soft nontender no hepatosplenomegaly appreciated sign Extremities: No clubbing no cyanosis no edema peripheral pulses palpated bilaterally Neurological: Alert awake oriented in person time place and situation, cranial nerves II through XII intact, no motor or sensory deficits appreciated Psych: Appropriate mood, cooperative Vitals Vitals Vital Signs Date Time Temp Pulse Resp B/P (MAP) Pulse Ox O2 Delivery O2 Flow Rate FiO2 10/14/19 07:00 98.0 82 20 204/127 (152) 98 Room Air 98.0 Labs Labs Laboratory Tests Test 10/14/19 09:50 White Blood Count 9.3 x10^3/uL (4.0-11.0) Red Blood Count 5.65 x10^6/uL (4.30-5.70) Hemoglobin 16.0 g/dL (13.0-17.5) Hematocrit 48.3 % (39.0-53.0) Mean Corpuscular Volume 85 fL (79-100) Mean Corpuscular Hemoglobin 28 pg (25-35) Mean Corpuscular Hemoglobin Concent 33 g/dL (31-37) Red Cell Distribution Width 15.6 % (11.5-14.5) Platelet Count 239 x10^3/uL (140-400) Neutrophils (%) (Auto) 88 % (31-73) Lymphocytes (%) (Auto) 9 % (24-48) Monocytes (%) (Auto) 3 % (0-9) Eosinophils (%) (Auto) 0 % (0-3) Basophils (%) (Auto) 0 % (0-3) Neutrophils # (Auto) 8.2 x10^3/uL (1.8-7.7) Lymphocytes # (Auto) 0.8 x10^3/uL (1.0-4.8) Monocytes # (Auto) 0.3 x10^3/uL (0.0-1.1) Eosinophils # (Auto) 0.0 x10^3/uL (0.0-0.7) Basophils # (Auto) 0.0 x10^3/uL (0.0-0.2) Laboratory Tests Test 10/14/19 09:50 White Blood Count 9.3 x10^3/uL (4.0-11.0) Red Blood Count 5.65 x10^6/uL (4.30-5.70) Hemoglobin 16.0 g/dL (13.0-17.5) Hematocrit 48.3 % (39.0-53.0) Mean Corpuscular Volume 85 fL (79-100) Mean Corpuscular Hemoglobin 28 pg (25-35) Mean Corpuscular Hemoglobin Concent 33 g/dL (31-37) Red Cell Distribution Width 15.6 % (11.5-14.5) Platelet Count 239 x10^3/uL (140-400) Neutrophils (%) (Auto) 88 % (31-73) Lymphocytes (%) (Auto) 9 % (24-48) Monocytes (%) (Auto) 3 % (0-9) Eosinophils (%) (Auto) 0 % (0-3) Basophils (%) (Auto) 0 % (0-3) Neutrophils # (Auto) 8.2 x10^3/uL (1.8-7.7) Lymphocytes # (Auto) 0.8 x10^3/uL (1.0-4.8) Monocytes # (Auto) 0.3 x10^3/uL (0.0-1.1) Eosinophils # (Auto) 0.0 x10^3/uL (0.0-0.7) Basophils # (Auto) 0.0 x10^3/uL (0.0-0.2) VTE Prophylaxis Ordered VTE Prophylaxis Devices: No VTE Pharmacological Prophylaxi: Yes Assessment/Plan Assessment/Plan Hypertensive urgency Hypertensive encephalopathy History of medication nonadherence due to monetary constraints History of angioedema and uvulitis Mild pontine tonsil enlargement, may be reflective of underlying infectious or inflammatory process. Airways are otherwise patent. Plan: Cardene drip Labetalol when necessary We'll start the patient on amlodipine by mouth and HCTZ Monitor neurological status Follow recommendations from GI qm consultant He prophylaxis with SCD Recommendations based on the clinical course ENMA FLORES MD Oct 14, 2019 11:02
[2019-10-14] MEDS: amLODIPine BESYLATE 10 MG TABLET PO SCH (11:10)
[2019-10-14] MEDS ORDERED: hydroCHLOROthiazide 12.5 MG CAPSULE PO ONE (12:00)
[2019-10-14] MEDS: CITALOPRAM 20 MG TABLET. PO SCH (14:09)
[2019-10-14 14:29] LABS: % LYMPHS 9 % (24-48); % MONOS 5 % (0-10); % SEGS 86 % (35-66); PLATELET CLUMP PRESENT; PLT ESTIMATE ADEQUATE (ADEQUATE); TARGET CELLS OCC
--- NOTE | 2019-10-14 14:52 | NUR ---
SS following for discharge planning. SS reviewed pt chart. Pt is self pay pt. HCFS following for self pay status. Pt is from home and is currently on room air. SS will continue to follow for discharge planning.
[2019-10-14] MEDS ORDERED: POTASSIUM CHLORIDE 20 MEQ TABLET.ER. PO ONE ×2 (15:00→17:30)
--- NOTE | 2019-10-14 15:42 | PDOC2 ---
CARDIAC CONSULT DATE OF CONSULT Date of Consult DATE: 10/14/19 TIME: 15:35 REASON FOR CONSULT Reason for Consult: HTN urgency REFERRING PHYSICIAN Referring Physician: Octaviano SOURCE Source: Chart review, Patient HISTORY OF PRESENT ILLNESS HISTORY OF PRESENT ILLNESS This is a pleasant 49 yo male admitted for complains of fullness in the back of his throat. This sensation started last night. This made him anxious as this he felt when had his angioedema from lisinopril about 4 yrs ago. Denies any recent new addition to his meds or any use of NSAIDs or any OTC meds. Also he has stopped taking his BP meds 1.5 months ago as he could not afford this. He was taking adalat and chlorthalidone. Denies any chest pain, SOA. No flushed feeling or palpitations. He eventfully started having DUMONT throughout but no focal symptoms. Upon admission his BP has been noted to be significantly high hence he was started on cardene. No prior CAD, CKD, VTE problem. He is positive for PND, midday sleepiness and was suspected of MARK in the past but no formal testing. He does have chronic low back pain and has MRI pending per workers comp. He does not smoke anymore but Vapes. He does eat a lot of potato chips. PAST MEDICAL HISTORY Cardiovascular: HTN, Other (angioedema with ACEi) Pulmonary: No pertinent hx CENTRAL NERVOUS SYSTEM: Other (No pertinent history) GI: No pertinent hx Heme/Onc: No pertinent hx Hepatobiliary: No pertinent hx Psych: Anxiety (claustrophobic) Musculoskeletal: low back pain, Osteoarthritis Infectious disease: No pertinent hx ENT: No pertinent hx Renal/: No pertinent hx Endocrine: No pertinent hx Dermatology: No pertinent hx PAST SURGICAL HISTORY Past Surgical History: No pertinent history FAMILY HISTORY Family History: Hypertension, Stroke (father) SOCIAL HISTORY Smoke: Quit (now vapes) ALCOHOL: other (8 ox portia a night) Lives: with Family CURRENT MEDICATIONS CURRENT MEDICATIONS Current Medications Medications (Trade) Dose Ordered Sig/Marquita Route PRN Reason Start Time Stop Time Status Last Admin Dose Admin Diphenhydramine HCl (Benadryl) 50 mg 1X ONCE IVP 10/13/19 21:45 10/13/19 21:47 DC 10/13/19 21:45 Famotidine (Pepcid Vial) 20 mg 1X ONCE IVP 10/13/19 21:45 10/13/19 21:47 DC 10/13/19 21:45 Methylprednisolone Sodium Succinate (SOLU-Medrol 125MG VIAL) 125 mg 1X ONCE IV 10/13/19 21:45 10/13/19 21:47 DC 10/13/19 21:45 Iohexol (Omnipaque 300 Mg/ml) 60 ml 1X ONCE IV 10/13/19 22:15 10/13/19 22:16 DC 10/13/19 22:06 Glucagon (Glucagen) 1 mg 1X ONCE IV 10/13/19 23:00 10/13/19 23:01 DC 10/13/19 22:49 Lorazepam (Ativan Inj) 1 mg 1X ONCE IVP 10/13/19 23:00 10/13/19 23:01 DC 10/13/19 23:07 Hydralazine HCl (Apresoline Inj) 10 mg 1X ONCE IVP 10/13/19 23:00 10/13/19 23:01 DC 10/13/19 23:08 Labetalol HCl (Normodyne Iv Push) 10 mg 1X ONCE IVP 10/14/19 00:00 10/14/19 00:01 DC 10/14/19 00:03 Hydralazine HCl (Apresoline) 25 mg 1X ONCE PO 10/14/19 00:45 10/14/19 00:46 DC 10/14/19 01:03 Labetalol HCl (Normodyne Iv Push) 10 mg PRN Q6HRS PRN IVP ELEVATED BP, SEE COMMENTS 10/14/19 00:45 10/14/19 14:21 Acetaminophen (Tylenol) 650 mg PRN Q4HRS PRN PO TEMP OVER 100.4F OR MILD PAIN 10/14/19 07:45 10/14/19 10:32 Albuterol Sulfate (Ventolin Neb Soln) 2.5 mg PRN Q4HRS PRN NEB SHORTNESS OF BREATH 10/14/19 07:45 10/14/19 11:48 Nicardipine HCl 50 mg/Sodium Chloride 250 ml @ 25 mls/hr CONT PRN IV SEE I/O RECORD 10/14/19 07:45 10/14/19 12:36 Pantoprazole Sodium (Protonix) 40 mg DAILYAC PO 10/14/19 10:00 10/14/19 09:34 Diphenhydramine HCl (Benadryl) 25 mg PRN Q6HRS PRN IVP ITCHING 10/14/19 10:30 10/14/19 10:32 Amlodipine Besylate (Norvasc) 10 mg DAILY PO 10/14/19 12:00 10/14/19 11:10 Hydrochlorothiazide (Microzide) 12.5 mg 1X ONCE PO 10/14/19 12:00 10/14/19 12:01 DC 10/14/19 11:11 Citalopram Hydrobromide (CeleXA) 40 mg DAILY PO 10/14/19 14:00 10/14/19 14:09 Potassium Chloride (Klor-Con) 40 meq 1X ONCE PO 10/14/19 15:00 10/14/19 15:01 DC 10/14/19 15:22 ALLERGIES ALLERGIES: Coded Allergies: lisinopril (Verified Allergy, Severe, angioedema/swelling, 08/19/16) ROS Review of System 14 point ROS evaluated with pertinent positives noted per HPI PHYSICAL EXAM General: Alert, Oriented X3, Cooperative, No acute distress HEENT: Atraumatic, Mucous membr. moist/pink Lungs: Clear to auscultation, Normal air movement Heart: Regular rate (SR), Normal S1, Normal S2, Other (S4 2/6 systolic murmur to apex) Abdomen: Soft, No tenderness Extremities: No cyanosis, No edema Skin: No breakdown, No significant lesion Neuro: Sensation intact Psych/Mental Status: Mental status NL, Mood NL MUSCULOSKELETAL: Osteoarthritic changes both hands VITALS/I&O VITALS/I&O: Vital Signs Date Time Temp Pulse Resp B/P (MAP) Pulse Ox O2 Delivery O2 Flow Rate FiO2 10/14/19 14:21 82 185/106 10/14/19 11:50 96 Room Air 10/14/19 11:00 98.3 20 98.3 I & O 10/13/19 10/13/19 10/14/19 15:00 23:00 07:00 Intake Total 0 ml Balance 0 ml LABS Lab: Laboratory Tests Test 10/14/19 09:50 White Blood Count 9.3 x10^3/uL (4.0-11.0) Red Blood Count 5.65 x10^6/uL (4.30-5.70) Hemoglobin 16.0 g/dL (13.0-17.5) Hematocrit 48.3 % (39.0-53.0) Mean Corpuscular Volume 85 fL (79-100) Mean Corpuscular Hemoglobin 28 pg (25-35) Mean Corpuscular Hemoglobin Concent 33 g/dL (31-37) Red Cell Distribution Width 15.6 % (11.5-14.5) H Platelet Count 239 x10^3/uL (140-400) Neutrophils (%) (Auto) 88 % (31-73) H Lymphocytes (%) (Auto) 9 % (24-48) L Monocytes (%) (Auto) 3 % (0-9) Eosinophils (%) (Auto) 0 % (0-3) Basophils (%) (Auto) 0 % (0-3) Neutrophils # (Auto) 8.2 x10^3/uL (1.8-7.7) H Lymphocytes # (Auto) 0.8 x10^3/uL (1.0-4.8) L Monocytes # (Auto) 0.3 x10^3/uL (0.0-1.1) Eosinophils # (Auto) 0.0 x10^3/uL (0.0-0.7) Basophils # (Auto) 0.0 x10^3/uL (0.0-0.2) Segmented Neutrophils % 86 % (35-66) H Lymphocytes % 9 % (24-48) L Monocytes % 5 % (0-10) Platelet Estimate Adequate (ADEQUATE) Platelet Clumps, EDTA Present Large Platelets Few Giant Platelets Occ Target Cells Occ Prothrombin Time 13.1 SEC (11.7-14.0) Prothrombin Time INR 1.0 (0.8-1.1) Sodium Level 142 mmol/L (136-145) Potassium Level 3.4 mmol/L (3.5-5.1) L Chloride Level 105 mmol/L (98-107) Carbon Dioxide Level 23 mmol/L (21-32) Anion Gap 14 (6-14) Blood Urea Nitrogen 15 mg/dL (8-26) Creatinine 1.6 mg/dL (0.7-1.3) H Estimated GFR (Cockcroft-Gault) 56.1 BUN/Creatinine Ratio 9 (6-20) Glucose Level 119 mg/dL (70-99) H Calcium Level 9.3 mg/dL (8.5-10.1) Total Bilirubin 0.5 mg/dL (0.2-1.0) Aspartate Amino Transferase (AST) 22 U/L (15-37) Alanine Aminotransferase (ALT) 32 U/L (16-63) Alkaline Phosphatase 65 U/L (46-116) Troponin I Quantitative < 0.017 ng/mL (0.000-0.055) Total Protein 8.2 g/dL (6.4-8.2) Albumin 3.9 g/dL (3.4-5.0) Albumin/Globulin Ratio 0.9 (1.0-1.7) L Laboratory Tests 10/14/19 09:50 Laboratory Tests 10/14/19 09:50 ASSESSMENT/PLAN ASSESSMENT/PLAN 1. HTN urgency: due to noncompliance, diet and likely MARK 2. Noncompliance 3. Vaping 4. Alcohol misuse: 8 oz portia nightly 5. Obesity 6. Suspected MARK 7. Chronic low back pain: controlled 8. Globus sensation: potentially related to GERD. GI following 9. Possible CKD Recommendation 1. Not compatible with angioedema. Discussed med compliance, Diet modification, cessation of vaping and curbing ETOH use and wt loss. Dietitian consult for DASH diet 2. Titrate off cardene. Will start on norvasc. HCTZ. Coreg. Labetolol IV PRN. Tailor made to [facility] 4$ list. 3. TSH and lipids. Will obtain EKG. CXR 4. Recommend outpt MARK w/u MERI FOREMAN APRN Oct 14, 2019 15:42
--- NOTE | 2019-10-14 16:18 | EKG ---
[facility] [address] [place] [address] Test Date: 2019-10-14 Test Time: 16:12:49 Pat Name: BOB THURSTON Department: Room: 211 Gender: M Fitter Machinist: MALLORY : 1970 Requested By: MERI FOREMAN Order Number: [id number] Reading MD: Measurements Intervals Shiner Rate: 82 P: 13 IA: 186 QRS: 40 QRSD: 92 T: 103 QT: 366 QTc: 431 Interpretive Statements SINUS RHYTHM LVH WITH REPOLARIZATION ABNORMALITY ABNORMAL ECG RI6.02 No previous ECG available for comparison
[2019-10-14] MEDS: CARVEDILOL 6.25 MG TABLET. PO SCH (16:50)
--- NOTE | 2019-10-14 17:22 | RAD ---
PORTABLE CHEST 1V History: Hypertension Comparison: August 19, 2016 Findings: No consolidation or pleural effusion. Normal heart size. No pneumothorax. Impression: 1. No acute cardiopulmonary process. Electronically signed by: Beny Love DO (10/14/2019 5:19 PM) [id number]
[2019-10-14 17:53] LABS: BILIRUBIN,URINE NEGATIVE (NEG); CLARITY,URINE CLEAR; COLOR,URINE YELLOW; NITRITE,URINE NEGATIVE (NEG); PH,URINE 5.5; PROTEIN,URINE 30 mg/dL (NEG-TRACE); UROBILINOGEN,URINE 0.2 mg/dL (0.2 mg/dL)
[2019-10-14 18:23] LABS: BACTERIA,URINE 0 /HPF (0-FEW); RBC,URINE OCC /HPF (0-2); SQUAMOUS EPITHELIAL CELL,UR FEW /LPF; TRICHOMONAS,URINE PRESENT; WBC,URINE 20-40 /HPF (0-4)
[2019-10-14 18:24] LABS: HYALINE CASTS, URINE OCCASIONAL /HPF
[2019-10-14] MEDS: CYCLOBENZAPRINE 10 MG TABLET. PO SCH (22:50)
[2019-10-15 03:40] VITALS: BP 173/95
[2019-10-15 04:39] LABS: BASO % 0 % (0-3); EOS % 0 % (0-3); HEMATOCRIT 42.1 % (39.0-53.0); HEMOGLOBIN 13.7 g/dL (13.0-17.5); LYMPH # 2.2 x10^3/uL (1.0-4.8); LYMPH % 19 % (24-48); MEAN CORPUSCULAR HEMOGLOBIN 28 pg (25-35); MEAN CORPUSCULAR HGB CONC 33 g/dL (31-37); MEAN CORPUSCULAR VOLUME 87 fL (79-100); MONO # 1.1 x10^3/uL (0.0-1.1); MONO % 10 % (0-9); NEUT # 8.1 x10^3/uL (1.8-7.7); NEUT % 71 % (31-73); PLATELET COUNT 205 x10^3/uL (140-400); RED BLOOD COUNT 4.86 x10^6/uL (4.30-5.70); RED CELL DISTRIBUTION WIDTH 15.7 % (11.5-14.5); WHITE BLOOD COUNT 11.5 x10^3/uL (4.0-11.0)
[2019-10-15 05:04] LABS: ALBUMIN 3.4 g/dL (3.4-5.0); ALBUMIN/GLOBULIN RATIO 1.1 (1.0-1.7); CALCIUM 8.5 mg/dL (8.5-10.1); CREATININE 1.5 mg/dL (0.7-1.3); GFR 60.4; POTASSIUM 3.9 mmol/L (3.5-5.1); TOTAL BILIRUBIN 0.3 mg/dL (0.2-1.0); TOTAL PROTEIN 6.4 g/dL (6.4-8.2)
[2019-10-15 05:12] LABS: CHOLESTEROL/HDL RATIO 2.6
[2019-10-15 07:00] VITALS: BP 172/107
[2019-10-15] MEDS: CYCLOBENZAPRINE 10 MG TABLET. PO SCH ×2 (08:56→21:00)
[2019-10-15] MEDS: amLODIPine BESYLATE 10 MG TABLET PO SCH (08:56)
[2019-10-15] MEDS: CARVEDILOL 6.25 MG TABLET. PO SCH (08:57)
[2019-10-15] MEDS: PANTOPRAZOLE 40 MG TABLET.DR. PO SCH (08:57)
[2019-10-15] MEDS: CITALOPRAM 20 MG TABLET. PO SCH (08:57)
[2019-10-15] MEDS: hydroCHLOROthiazide 25 MG TABLET PO SCH (09:02)
[2019-10-15] MEDS ORDERED: CARVEDILOL 12.5 MG TABLET. PO ONE (10:00)
[2019-10-15 11:00] VITALS: BP 185/102
--- NOTE | 2019-10-15 12:53 | PDOC ---
PROGRESS NOTES Subjective Subjective Patient seen and examined Objective Objective Vital Signs Date Time Temp Pulse Resp B/P (MAP) Pulse Ox O2 Delivery O2 Flow Rate FiO2 10/15/19 11:00 98.0 70 18 185/102 (129) 98 Room Air 98.0 Intake and Output 10/15/19 07:00 Intake Total 580 ml Output Total 1450 ml Balance -870 ml Intake Oral 580 ml Output Urine Total 1450 ml Physical Exam Abdomen: Normal bowel sounds Heart: Regular rate General: No acute distress Lungs: Clear to auscultation Assessment Assessment Problems Medical Problems: (1) Dysphagia Status: Acute (2) Hypertensive urgency Status: Acute 1. HTN urgency: due to noncompliance. Improved today. Will taper up medications. 2. Noncompliance 3. Obesity 4. Suspected MARK 5 remains elevated at 1.5 today.. Chronic low back pain: controlled 6. Globus sensation: potentially related to GERD. GI following 7. Possible CKD. Comment Review of Relevant I have reviewed the following items martín (where applicable) has been applied. Labs Laboratory Tests Test 10/14/19 09:50 10/14/19 17:00 10/14/19 18:00 10/15/19 03:15 White Blood Count 9.3 x10^3/uL (4.0-11.0) 11.5 x10^3/uL (4.0-11.0) Red Blood Count 5.65 x10^6/uL (4.30-5.70) 4.86 x10^6/uL (4.30-5.70) Hemoglobin 16.0 g/dL (13.0-17.5) 13.7 g/dL (13.0-17.5) Hematocrit 48.3 % (39.0-53.0) 42.1 % (39.0-53.0) Mean Corpuscular Volume 85 fL (79-100) 87 fL (79-100) Mean Corpuscular Hemoglobin 28 pg (25-35) 28 pg (25-35) Mean Corpuscular Hemoglobin Concent 33 g/dL (31-37) 33 g/dL (31-37) Red Cell Distribution Width 15.6 % (11.5-14.5) 15.7 % (11.5-14.5) Platelet Count 239 x10^3/uL (140-400) 205 x10^3/uL (140-400) Neutrophils (%) (Auto) 88 % (31-73) 71 % (31-73) Lymphocytes (%) (Auto) 9 % (24-48) 19 % (24-48) Monocytes (%) (Auto) 3 % (0-9) 10 % (0-9) Eosinophils (%) (Auto) 0 % (0-3) 0 % (0-3) Basophils (%) (Auto) 0 % (0-3) 0 % (0-3) Neutrophils # (Auto) 8.2 x10^3/uL (1.8-7.7) 8.1 x10^3/uL (1.8-7.7) Lymphocytes # (Auto) 0.8 x10^3/uL (1.0-4.8) 2.2 x10^3/uL (1.0-4.8) Monocytes # (Auto) 0.3 x10^3/uL (0.0-1.1) 1.1 x10^3/uL (0.0-1.1) Eosinophils # (Auto) 0.0 x10^3/uL (0.0-0.7) 0.0 x10^3/uL (0.0-0.7) Basophils # (Auto) 0.0 x10^3/uL (0.0-0.2) 0.0 x10^3/uL (0.0-0.2) Segmented Neutrophils % 86 % (35-66) Lymphocytes % 9 % (24-48) Monocytes % 5 % (0-10) Platelet Estimate Adequate (ADEQUATE) Platelet Clumps, EDTA Present Large Platelets Few Giant Platelets Occ Target Cells Occ Prothrombin Time 13.1 SEC (11.7-14.0) Prothromb Time International Ratio 1.0 (0.8-1.1) Sodium Level 142 mmol/L (136-145) Potassium Level 3.4 mmol/L (3.5-5.1) Chloride Level 105 mmol/L (98-107) Carbon Dioxide Level 23 mmol/L (21-32) Anion Gap 14 (6-14) Blood Urea Nitrogen 15 mg/dL (8-26) Creatinine 1.6 mg/dL (0.7-1.3) Estimated GFR (Cockcroft-Gault) 56.1 BUN/Creatinine Ratio 9 (6-20) Glucose Level 119 mg/dL (70-99) Calcium Level 9.3 mg/dL (8.5-10.1) Total Bilirubin 0.5 mg/dL (0.2-1.0) Aspartate Amino Transf (AST/SGOT) 22 U/L (15-37) Alanine Aminotransferase (ALT/SGPT) 32 U/L (16-63) Alkaline Phosphatase 65 U/L (46-116) Troponin I Quantitative < 0.017 ng/mL (0.000-0.055) 0.041 ng/mL (0.000-0.055) Total Protein 8.2 g/dL (6.4-8.2) Albumin 3.9 g/dL (3.4-5.0) Albumin/Globulin Ratio 0.9 (1.0-1.7) Thyroid Stimulating Hormone (TSH) 0.795 uIU/mL (0.358-3.74) Urine Collection Type Unknown Urine Color Yellow Urine Clarity Clear Urine pH 5.5 Urine Specific Franklin 1.020 Urine Protein 30 mg/dL (NEG-TRACE) Urine Glucose (UA) Negative mg/dL (NEG) Urine Ketones (Stick) Negative mg/dL (NEG) Urine Blood Negative (NEG) Urine Nitrite Negative (NEG) Urine Bilirubin Negative (NEG) Urine Urobilinogen Dipstick 0.2 mg/dL (0.2 mg/dL) Urine Leukocyte Esterase Moderate (NEG) Urine RBC Occ /HPF (0-2) Urine WBC 20-40 /HPF (0-4) Urine Squamous Epithelial Cells Few /LPF Urine Bacteria 0 /HPF (0-FEW) Urine Hyaline Casts Occasional /HPF Urine Mucus Marked /LPF Urine Trichomonas Present Test 10/15/19 03:25 Sodium Level 144 mmol/L (136-145) Potassium Level 3.9 mmol/L (3.5-5.1) Chloride Level 108 mmol/L (98-107) Carbon Dioxide Level 24 mmol/L (21-32) Anion Gap 12 (6-14) Blood Urea Nitrogen 19 mg/dL (8-26) Creatinine 1.5 mg/dL (0.7-1.3) Estimated GFR (Cockcroft-Gault) 60.4 BUN/Creatinine Ratio 13 (6-20) Glucose Level 107 mg/dL (70-99) Calcium Level 8.5 mg/dL (8.5-10.1) Total Bilirubin 0.3 mg/dL (0.2-1.0) Aspartate Amino Transf (AST/SGOT) 17 U/L (15-37) Alanine Aminotransferase (ALT/SGPT) 28 U/L (16-63) Alkaline Phosphatase 57 U/L (46-116) Total Protein 6.4 g/dL (6.4-8.2) Albumin 3.4 g/dL (3.4-5.0) Albumin/Globulin Ratio 1.1 (1.0-1.7) Triglycerides Level 57 mg/dL (0-150) Cholesterol Level 115 mg/dL (0-200) LDL Cholesterol, Calculated 60 mg/dL (0-100) VLDL Cholesterol, Calculated 11 mg/dL (0-40) Non-HDL Cholesterol Calculated 71 mg/dL (0-129) HDL Cholesterol 44 mg/dL (40-60) Cholesterol/HDL Ratio 2.6 Laboratory Tests Test 10/14/19 17:00 10/14/19 18:00 10/15/19 03:15 10/15/19 03:25 Urine Collection Type Unknown Urine Color Yellow Urine Clarity Clear Urine pH 5.5 Urine Specific Franklin 1.020 Urine Protein 30 mg/dL (NEG-TRACE) Urine Glucose (UA) Negative mg/dL (NEG) Urine Ketones (Stick) Negative mg/dL (NEG) Urine Blood Negative (NEG) Urine Nitrite Negative (NEG) Urine Bilirubin Negative (NEG) Urine Urobilinogen Dipstick 0.2 mg/dL (0.2 mg/dL) Urine Leukocyte Esterase Moderate (NEG) Urine RBC Occ /HPF (0-2) Urine WBC 20-40 /HPF (0-4) Urine Squamous Epithelial Cells Few /LPF Urine Bacteria 0 /HPF (0-FEW) Urine Hyaline Casts Occasional /HPF Urine Mucus Marked /LPF Urine Trichomonas Present Troponin I Quantitative 0.041 ng/mL (0.000-0.055) White Blood Count 11.5 x10^3/uL (4.0-11.0) Red Blood Count 4.86 x10^6/uL (4.30-5.70) Hemoglobin 13.7 g/dL (13.0-17.5) Hematocrit 42.1 % (39.0-53.0) Mean Corpuscular Volume 87 fL (79-100) Mean Corpuscular Hemoglobin 28 pg (25-35) Mean Corpuscular Hemoglobin Concent 33 g/dL (31-37) Red Cell Distribution Width 15.7 % (11.5-14.5) Platelet Count 205 x10^3/uL (140-400) Neutrophils (%) (Auto) 71 % (31-73) Lymphocytes (%) (Auto) 19 % (24-48) Monocytes (%) (Auto) 10 % (0-9) Eosinophils (%) (Auto) 0 % (0-3) Basophils (%) (Auto) 0 % (0-3) Neutrophils # (Auto) 8.1 x10^3/uL (1.8-7.7) Lymphocytes # (Auto) 2.2 x10^3/uL (1.0-4.8) Monocytes # (Auto) 1.1 x10^3/uL (0.0-1.1) Eosinophils # (Auto) 0.0 x10^3/uL (0.0-0.7) Basophils # (Auto) 0.0 x10^3/uL (0.0-0.2) Sodium Level 144 mmol/L (136-145) Potassium Level 3.9 mmol/L (3.5-5.1) Chloride Level 108 mmol/L (98-107) Carbon Dioxide Level 24 mmol/L (21-32) Anion Gap 12 (6-14) Blood Urea Nitrogen 19 mg/dL (8-26) Creatinine 1.5 mg/dL (0.7-1.3) Estimated GFR (Cockcroft-Gault) 60.4 BUN/Creatinine Ratio 13 (6-20) Glucose Level 107 mg/dL (70-99) Calcium Level 8.5 mg/dL (8.5-10.1) Total Bilirubin 0.3 mg/dL (0.2-1.0) Aspartate Amino Transf (AST/SGOT) 17 U/L (15-37) Alanine Aminotransferase (ALT/SGPT) 28 U/L (16-63) Alkaline Phosphatase 57 U/L (46-116) Total Protein 6.4 g/dL (6.4-8.2) Albumin 3.4 g/dL (3.4-5.0) Albumin/Globulin Ratio 1.1 (1.0-1.7) Triglycerides Level 57 mg/dL (0-150) Cholesterol Level 115 mg/dL (0-200) LDL Cholesterol, Calculated 60 mg/dL (0-100) VLDL Cholesterol, Calculated 11 mg/dL (0-40) Non-HDL Cholesterol Calculated 71 mg/dL (0-129) HDL Cholesterol 44 mg/dL (40-60) Cholesterol/HDL Ratio 2.6 Medications Current Medications Diphenhydramine HCl (Benadryl) 50 mg 1X ONCE IVP Last administered on 10/13/19at 21:45; Start 10/13/19 at 21:45; Stop 10/13/19 at 21:47; Status DC Famotidine (Pepcid Vial) 20 mg 1X ONCE IVP Last administered on 10/13/19at 21:45; Start 10/13/19 at 21:45; Stop 10/13/19 at 21:47; Status DC Methylprednisolone Sodium Succinate (SOLU-Medrol 125MG VIAL) 125 mg 1X ONCE IV Last administered on 10/13/19at 21:45; Start 10/13/19 at 21:45; Stop 10/13/19 at 21:47; Status DC Iohexol (Omnipaque 300 Mg/ml) 60 ml 1X ONCE IV Last administered on 10/13/19at 22:06; Start 10/13/19 at 22:15; Stop 10/13/19 at 22:16; Status DC Info (CONTRAST GIVEN -- Rx MONITORING) 1 each PRN DAILY PRN MC SEE COMMENTS; Start 10/13/19 at 22:15; Stop 10/15/19 at 22:14 Iohexol (Omnipaque 300 Mg/ml) 100 ml STK-MED ONCE .ROUTE ; Start 10/13/19 at 22:01; Stop 10/13/19 at 22:01; Status DC Glucagon (Glucagen) 1 mg 1X ONCE IV Last administered on 10/13/19at 22:49; Start 10/13/19 at 23:00; Stop 10/13/19 at 23:01; Status DC Glucagon (Glucagen) 1 mg STK-MED ONCE .ROUTE ; Start 10/13/19 at 22:46; Stop 10/13/19 at 22:46; Status DC Lorazepam (Ativan Inj) 1 mg 1X ONCE IVP Last administered on 10/13/19at 23:07; Start 10/13/19 at 23:00; Stop 10/13/19 at 23:01; Status DC Hydralazine HCl (Apresoline Inj) 10 mg 1X ONCE IVP Last administered on 10/13/19at 23:08; Start 10/13/19 at 23:00; Stop 10/13/19 at 23:01; Status DC Labetalol HCl (Normodyne Iv Push) 10 mg 1X ONCE IVP Last administered on 10/14/19at 00:03; Start 10/14/19 at 00:00; Stop 10/14/19 at 00:01; Status DC Ondansetron HCl (Zofran) 4 mg PRN Q8HRS PRN IV NAUSEA/VOMITING; Start 10/14/19 at 00:45; Stop 10/14/19 at 07:51; Status DC Acetaminophen (Tylenol) 650 mg PRN Q4HRS PRN PO FEVER; Start 10/14/19 at 00:45; Stop 10/14/19 at 07:48; Status DC Hydralazine HCl (Apresoline) 25 mg 1X ONCE PO Last administered on 10/14/19at 01:03; Start 10/14/19 at 00:45; Stop 10/14/19 at 00:46; Status DC Labetalol HCl (Normodyne Iv Push) 10 mg PRN Q6HRS PRN IVP ELEVATED BP, SEE COMMENTS Last administered on 10/14/19at 14:21; Start 10/14/19 at 00:45; Stop 10/14/19 at 16:18; Status DC Ondansetron HCl (Zofran) 4 mg PRN Q4HRS PRN IV NAUSEA/VOMITING; Start 10/14/19 at 07:45 Zolpidem Tartrate (Ambien) 5 mg PRN QHS PRN PO INSOMNIA; Start 10/14/19 at 07:45 Acetaminophen (Tylenol) 650 mg PRN Q4HRS PRN PO TEMP OVER 100.4F OR MILD PAIN Last administered on 10/14/19at 10:32; Start 10/14/19 at 07:45 Docusate Sodium (Colace) 100 mg PRN BID PRN PO CONSTIPATION; Start 10/14/19 at 07:45 Albuterol Sulfate (Ventolin Neb Soln) 2.5 mg PRN Q4HRS PRN NEB SHORTNESS OF BREATH Last administered on 10/14/19 11:48; Start 10/14/19 at 07:45 Nicardipine HCl 50 mg/Sodium Chloride 250 ml @ 25 mls/hr CONT PRN IV SEE I/O RECORD Last administered on 10/14/19 12:36; Start 10/14/19 at 07:45; Stop 10/14/19 at 16:18; Status DC Pantoprazole Sodium (Protonix) 40 mg DAILYAC PO Last administered on 10/15/19 08:57; Start 10/14/19 at 10:00 Calcium Carbonate/ Glycine (Tums) 500 mg PRN AFTMEALHC PRN PO INDIGESTION; Start 10/14/19 at 09:30 Polyethylene Glycol (miraLAX PACKET) 17 gm PRN DAILY PRN PO CONSTIPATION- 2ND CHOICE; Start 10/14/19 at 10:15 Diphenhydramine HCl (Benadryl) 25 mg PRN Q6HRS PRN IVP ITCHING Last administered on 10/14/19at 10:32; Start 10/14/19 at 10:30 Amlodipine Besylate (Norvasc) 10 mg DAILY PO Last administered on 10/15/19 08:56; Start 10/14/19 at 12:00 Hydrochlorothiazide (Microzide) 12.5 mg 1X ONCE PO Last administered on 10/14/19 11:11; Start 10/14/19 at 12:00; Stop 10/14/19 at 12:01; Status DC Cyclobenzaprine HCl (Flexeril) 10 mg BID PO Last administered on 10/15/19 08:56; Start 10/14/19 at 21:00 Citalopram Hydrobromide (CeleXA) 40 mg DAILY PO Last administered on 10/15/19 08:57; Start 10/14/19 at 14:00 Potassium Chloride (Klor-Con) 40 meq 1X ONCE PO Last administered on 10/14/19 15:22; Start 10/14/19 at 15:00; Stop 10/14/19 at 15:01; Status DC Potassium Chloride (Klor-Con) 40 meq 1X ONCE PO Last administered on 10/14/19at 17:14; Start 10/14/19 at 17:30; Stop 10/14/19 at 17:31; Status DC Labetalol HCl (Normodyne Iv Push) 20 mg PRN Q2HR PRN IVP HYPERTENSION Last administered on 10/14/19at 17:14; Start 10/14/19 at 16:15 Hydrochlorothiazide (Hydrodiuril) 25 mg DAILY PO Last administered on 10/15/19at 09:02; Start 10/15/19 at 09:00 Carvedilol (Coreg) 6.25 mg BIDWMEALS PO Last administered on 10/15/19at 08:57; Start 10/14/19 at 17:00; Stop 10/15/19 at 09:57; Status DC Carvedilol (Coreg) 12.5 mg BIDWMEALS PO ; Start 10/15/19 at 17:00 Carvedilol (Coreg) 12.5 mg 1X ONCE PO Last administered on 10/15/19at 10:39; Start 10/15/19 at 10:00; Stop 10/15/19 at 10:06; Status DC Active Scripts Active Reported Cyclobenzaprine Hcl 10 Mg Tablet 10 Mg PO BID Chlorthalidone 25 Mg Tablet 25 Mg PO DAILY Nifedipine Er (Nifedipine) 60 Mg Tablet.er 60 Mg PO DAILY Citalopram Hbr (Citalopram Hydrobromide) 40 Mg Tablet 40 Mg PO DAILY Klor-Con 8 (Potassium Chloride) 8 Meq Tablet.er 8 Meq PO DAILY Vitals/I & O Vital Sign - Last 24 Hours 10/14/19 10/14/19 10/14/19 10/14/19 14:21 15:00 16:50 17:14 Temp 98.3 98.3 Pulse 82 84 83 83 Resp 20 B/P (MAP) 185/106 150/85 (106) 180/97 180/97 Pulse Ox 98 O2 Delivery Room Air 10/14/19 10/14/19 10/14/19 10/15/19 19:45 20:00 23:45 03:40 Temp 97.9 98.3 97.8 97.9 98.3 97.8 Pulse 76 69 71 Resp 22 21 20 B/P (MAP) 158/92 (114) 176/100 (125) 173/95 (121) Pulse Ox 99 98 95 O2 Delivery Room Air Room Air Room Air Room Air 10/15/19 10/15/19 10/15/19 10/15/19 07:00 08:00 08:56 08:57 Temp 97.9 97.9 Pulse 68 71 71 Resp 18 B/P (MAP) 172/107 (128) 172/107 172/107 Pulse Ox 96 O2 Delivery Room Air Room Air 10/15/19 10/15/19 10:39 11:00 Temp 98.0 98.0 Pulse 72 70 Resp 18 B/P (MAP) 185/102 185/102 (129) Pulse Ox 98 O2 Delivery Room Air Intake and Output 10/14/19 10/14/19 10/15/19 15:00 23:00 07:00 Intake Total 480 ml 100 ml Output Total 600 ml 250 ml 600 ml Balance -120 ml -250 ml -500 ml SAEID WILKINSON MD Oct 15, 2019 12:53
[2019-10-15 15:00] VITALS: BP 160/111
[2019-10-15] MEDS: CARVEDILOL 12.5 MG TABLET. PO SCH (17:03)
[2019-10-15 19:45] VITALS: BP 171/96
--- NOTE | 2019-10-15 20:22 | PDOC ---
PROGRESS NOTES Chief Complaint Chief Complaint Hypertensive urgency Hypertensive encephalopathy History of medication nonadherence due to monetary constraints History of angioedema and uvulitis Mild pontine tonsil enlargement, may be reflective of underlying infectious or inflammatory process. Airways are otherwise patent. Plan: appreciate cardiology recommendations. Labetalol We'll start the patient on amlodipine by mouth and HCTZ Monitor neurological status Follow recommendations from GI human capital consultant DVT prophylaxis with SCD Recommendations based on the clinical course hope to discharge soon once BP is improved Vitals Vitals Vital Signs Date Time Temp Pulse Resp B/P (MAP) Pulse Ox O2 Delivery O2 Flow Rate FiO2 10/15/19 19:45 98.4 64 20 171/96 (121) 97 Room Air 98.4 Physical Exam General: No acute distress Heart: Regular rate Abdomen: Normal bowel sounds Extremities: No cyanosis, No edema Skin: No breakdown, No significant lesion Labs LABS Laboratory Tests Test 10/15/19 03:15 10/15/19 03:25 White Blood Count 11.5 x10^3/uL (4.0-11.0) Red Blood Count 4.86 x10^6/uL (4.30-5.70) Hemoglobin 13.7 g/dL (13.0-17.5) Hematocrit 42.1 % (39.0-53.0) Mean Corpuscular Volume 87 fL (79-100) Mean Corpuscular Hemoglobin 28 pg (25-35) Mean Corpuscular Hemoglobin Concent 33 g/dL (31-37) Red Cell Distribution Width 15.7 % (11.5-14.5) Platelet Count 205 x10^3/uL (140-400) Neutrophils (%) (Auto) 71 % (31-73) Lymphocytes (%) (Auto) 19 % (24-48) Monocytes (%) (Auto) 10 % (0-9) Eosinophils (%) (Auto) 0 % (0-3) Basophils (%) (Auto) 0 % (0-3) Neutrophils # (Auto) 8.1 x10^3/uL (1.8-7.7) Lymphocytes # (Auto) 2.2 x10^3/uL (1.0-4.8) Monocytes # (Auto) 1.1 x10^3/uL (0.0-1.1) Eosinophils # (Auto) 0.0 x10^3/uL (0.0-0.7) Basophils # (Auto) 0.0 x10^3/uL (0.0-0.2) Sodium Level 144 mmol/L (136-145) Potassium Level 3.9 mmol/L (3.5-5.1) Chloride Level 108 mmol/L (98-107) Carbon Dioxide Level 24 mmol/L (21-32) Anion Gap 12 (6-14) Blood Urea Nitrogen 19 mg/dL (8-26) Creatinine 1.5 mg/dL (0.7-1.3) Estimated GFR (Cockcroft-Gault) 60.4 BUN/Creatinine Ratio 13 (6-20) Glucose Level 107 mg/dL (70-99) Calcium Level 8.5 mg/dL (8.5-10.1) Total Bilirubin 0.3 mg/dL (0.2-1.0) Aspartate Amino Transf (AST/SGOT) 17 U/L (15-37) Alanine Aminotransferase (ALT/SGPT) 28 U/L (16-63) Alkaline Phosphatase 57 U/L (46-116) Total Protein 6.4 g/dL (6.4-8.2) Albumin 3.4 g/dL (3.4-5.0) Albumin/Globulin Ratio 1.1 (1.0-1.7) Triglycerides Level 57 mg/dL (0-150) Cholesterol Level 115 mg/dL (0-200) LDL Cholesterol, Calculated 60 mg/dL (0-100) VLDL Cholesterol, Calculated 11 mg/dL (0-40) Non-HDL Cholesterol Calculated 71 mg/dL (0-129) HDL Cholesterol 44 mg/dL (40-60) Cholesterol/HDL Ratio 2.6 Assessment and Plan Assessmemt and Plan Problems Medical Problems: (1) Dysphagia Status: Acute (2) Hypertensive urgency Status: Acute Comment Review of Relevant I have reviewed the following items martín (where applicable) has been applied. Labs Laboratory Tests Test 10/14/19 09:50 10/14/19 17:00 10/14/19 18:00 10/15/19 03:15 White Blood Count 9.3 x10^3/uL (4.0-11.0) 11.5 x10^3/uL (4.0-11.0) Red Blood Count 5.65 x10^6/uL (4.30-5.70) 4.86 x10^6/uL (4.30-5.70) Hemoglobin 16.0 g/dL (13.0-17.5) 13.7 g/dL (13.0-17.5) Hematocrit 48.3 % (39.0-53.0) 42.1 % (39.0-53.0) Mean Corpuscular Volume 85 fL (79-100) 87 fL (79-100) Mean Corpuscular Hemoglobin 28 pg (25-35) 28 pg (25-35) Mean Corpuscular Hemoglobin Concent 33 g/dL (31-37) 33 g/dL (31-37) Red Cell Distribution Width 15.6 % (11.5-14.5) 15.7 % (11.5-14.5) Platelet Count 239 x10^3/uL (140-400) 205 x10^3/uL (140-400) Neutrophils (%) (Auto) 88 % (31-73) 71 % (31-73) Lymphocytes (%) (Auto) 9 % (24-48) 19 % (24-48) Monocytes (%) (Auto) 3 % (0-9) 10 % (0-9) Eosinophils (%) (Auto) 0 % (0-3) 0 % (0-3) Basophils (%) (Auto) 0 % (0-3) 0 % (0-3) Neutrophils # (Auto) 8.2 x10^3/uL (1.8-7.7) 8.1 x10^3/uL (1.8-7.7) Lymphocytes # (Auto) 0.8 x10^3/uL (1.0-4.8) 2.2 x10^3/uL (1.0-4.8) Monocytes # (Auto) 0.3 x10^3/uL (0.0-1.1) 1.1 x10^3/uL (0.0-1.1) Eosinophils # (Auto) 0.0 x10^3/uL (0.0-0.7) 0.0 x10^3/uL (0.0-0.7) Basophils # (Auto) 0.0 x10^3/uL (0.0-0.2) 0.0 x10^3/uL (0.0-0.2) Segmented Neutrophils % 86 % (35-66) Lymphocytes % 9 % (24-48) Monocytes % 5 % (0-10) Platelet Estimate Adequate (ADEQUATE) Platelet Clumps, EDTA Present Large Platelets Few Giant Platelets Occ Target Cells Occ Prothrombin Time 13.1 SEC (11.7-14.0) Prothromb Time International Ratio 1.0 (0.8-1.1) Sodium Level 142 mmol/L (136-145) Potassium Level 3.4 mmol/L (3.5-5.1) Chloride Level 105 mmol/L (98-107) Carbon Dioxide Level 23 mmol/L (21-32) Anion Gap 14 (6-14) Blood Urea Nitrogen 15 mg/dL (8-26) Creatinine 1.6 mg/dL (0.7-1.3) Estimated GFR (Cockcroft-Gault) 56.1 BUN/Creatinine Ratio 9 (6-20) Glucose Level 119 mg/dL (70-99) Calcium Level 9.3 mg/dL (8.5-10.1) Total Bilirubin 0.5 mg/dL (0.2-1.0) Aspartate Amino Transf (AST/SGOT) 22 U/L (15-37) Alanine Aminotransferase (ALT/SGPT) 32 U/L (16-63) Alkaline Phosphatase 65 U/L (46-116) Troponin I Quantitative < 0.017 ng/mL (0.000-0.055) 0.041 ng/mL (0.000-0.055) Total Protein 8.2 g/dL (6.4-8.2) Albumin 3.9 g/dL (3.4-5.0) Albumin/Globulin Ratio 0.9 (1.0-1.7) Thyroid Stimulating Hormone (TSH) 0.795 uIU/mL (0.358-3.74) Urine Collection Type Unknown Urine Color Yellow Urine Clarity Clear Urine pH 5.5 Urine Specific [place] 1.020 Urine Protein 30 mg/dL (NEG-TRACE) Urine Glucose (UA) Negative mg/dL (NEG) Urine Ketones (Stick) Negative mg/dL (NEG) Urine Blood Negative (NEG) Urine Nitrite Negative (NEG) Urine Bilirubin Negative (NEG) Urine Urobilinogen Dipstick 0.2 mg/dL (0.2 mg/dL) Urine Leukocyte Esterase Moderate (NEG) Urine RBC Occ /HPF (0-2) Urine WBC 20-40 /HPF (0-4) Urine Squamous Epithelial Cells Few /LPF Urine Bacteria 0 /HPF (0-FEW) Urine Hyaline Casts Occasional /HPF Urine Mucus Marked /LPF Urine Trichomonas Present Test 10/15/19 03:25 Sodium Level 144 mmol/L (136-145) Potassium Level 3.9 mmol/L (3.5-5.1) Chloride Level 108 mmol/L (98-107) Carbon Dioxide Level 24 mmol/L (21-32) Anion Gap 12 (6-14) Blood Urea Nitrogen 19 mg/dL (8-26) Creatinine 1.5 mg/dL (0.7-1.3) Estimated GFR (Cockcroft-Gault) 60.4 BUN/Creatinine Ratio 13 (6-20) Glucose Level 107 mg/dL (70-99) Calcium Level 8.5 mg/dL (8.5-10.1) Total Bilirubin 0.3 mg/dL (0.2-1.0) Aspartate Amino Transf (AST/SGOT) 17 U/L (15-37) Alanine Aminotransferase (ALT/SGPT) 28 U/L (16-63) Alkaline Phosphatase 57 U/L (46-116) Total Protein 6.4 g/dL (6.4-8.2) Albumin 3.4 g/dL (3.4-5.0) Albumin/Globulin Ratio 1.1 (1.0-1.7) Triglycerides Level 57 mg/dL (0-150) Cholesterol Level 115 mg/dL (0-200) LDL Cholesterol, Calculated 60 mg/dL (0-100) VLDL Cholesterol, Calculated 11 mg/dL (0-40) Non-HDL Cholesterol Calculated 71 mg/dL (0-129) HDL Cholesterol 44 mg/dL (40-60) Cholesterol/HDL Ratio 2.6 Laboratory Tests Test 10/15/19 03:15 10/15/19 03:25 White Blood Count 11.5 x10^3/uL (4.0-11.0) Red Blood Count 4.86 x10^6/uL (4.30-5.70) Hemoglobin 13.7 g/dL (13.0-17.5) Hematocrit 42.1 % (39.0-53.0) Mean Corpuscular Volume 87 fL (79-100) Mean Corpuscular Hemoglobin 28 pg (25-35) Mean Corpuscular Hemoglobin Concent 33 g/dL (31-37) Red Cell Distribution Width 15.7 % (11.5-14.5) Platelet Count 205 x10^3/uL (140-400) Neutrophils (%) (Auto) 71 % (31-73) Lymphocytes (%) (Auto) 19 % (24-48) Monocytes (%) (Auto) 10 % (0-9) Eosinophils (%) (Auto) 0 % (0-3) Basophils (%) (Auto) 0 % (0-3) Neutrophils # (Auto) 8.1 x10^3/uL (1.8-7.7) Lymphocytes # (Auto) 2.2 x10^3/uL (1.0-4.8) Monocytes # (Auto) 1.1 x10^3/uL (0.0-1.1) Eosinophils # (Auto) 0.0 x10^3/uL (0.0-0.7) Basophils # (Auto) 0.0 x10^3/uL (0.0-0.2) Sodium Level 144 mmol/L (136-145) Potassium Level 3.9 mmol/L (3.5-5.1) Chloride Level 108 mmol/L (98-107) Carbon Dioxide Level 24 mmol/L (21-32) Anion Gap 12 (6-14) Blood Urea Nitrogen 19 mg/dL (8-26) Creatinine 1.5 mg/dL (0.7-1.3) Estimated GFR (Cockcroft-Gault) 60.4 BUN/Creatinine Ratio 13 (6-20) Glucose Level 107 mg/dL (70-99) Calcium Level 8.5 mg/dL (8.5-10.1) Total Bilirubin 0.3 mg/dL (0.2-1.0) Aspartate Amino Transf (AST/SGOT) 17 U/L (15-37) Alanine Aminotransferase (ALT/SGPT) 28 U/L (16-63) Alkaline Phosphatase 57 U/L (46-116) Total Protein 6.4 g/dL (6.4-8.2) Albumin 3.4 g/dL (3.4-5.0) Albumin/Globulin Ratio 1.1 (1.0-1.7) Triglycerides Level 57 mg/dL (0-150) Cholesterol Level 115 mg/dL (0-200) LDL Cholesterol, Calculated 60 mg/dL (0-100) VLDL Cholesterol, Calculated 11 mg/dL (0-40) Non-HDL Cholesterol Calculated 71 mg/dL (0-129) HDL Cholesterol 44 mg/dL (40-60) Cholesterol/HDL Ratio 2.6 Medications Current Medications Diphenhydramine HCl (Benadryl) 50 mg 1X ONCE IVP Last administered on 10/13/19at 21:45; Start 10/13/19 at 21:45; Stop 10/13/19 at 21:47; Status DC Famotidine (Pepcid Vial) 20 mg 1X ONCE IVP Last administered on 10/13/19at 21:45; Start 10/13/19 at 21:45; Stop 10/13/19 at 21:47; Status DC Methylprednisolone Sodium Succinate (SOLU-Medrol 125MG VIAL) 125 mg 1X ONCE IV Last administered on 10/13/19at 21:45; Start 10/13/19 at 21:45; Stop 10/13/19 at 21:47; Status DC Iohexol (Omnipaque 300 Mg/ml) 60 ml 1X ONCE IV Last administered on 10/13/19at 22:06; Start 10/13/19 at 22:15; Stop 10/13/19 at 22:16; Status DC Info (CONTRAST GIVEN -- Rx MONITORING) 1 each PRN DAILY PRN MC SEE COMMENTS; Start 10/13/19 at 22:15; Stop 10/15/19 at 22:14 Iohexol (Omnipaque 300 Mg/ml) 100 ml STK-MED ONCE .ROUTE ; Start 10/13/19 at 22:01; Stop 10/13/19 at 22:01; Status DC Glucagon (Glucagen) 1 mg 1X ONCE IV Last administered on 10/13/19at 22:49; Start 10/13/19 at 23:00; Stop 10/13/19 at 23:01; Status DC Glucagon (Glucagen) 1 mg STK-MED ONCE .ROUTE ; Start 10/13/19 at 22:46; Stop 10/13/19 at 22:46; Status DC Lorazepam (Ativan Inj) 1 mg 1X ONCE IVP Last administered on 10/13/19at 23:07; Start 10/13/19 at 23:00; Stop 10/13/19 at 23:01; Status DC Hydralazine HCl (Apresoline Inj) 10 mg 1X ONCE IVP Last administered on 10/13/19at 23:08; Start 10/13/19 at 23:00; Stop 10/13/19 at 23:01; Status DC Labetalol HCl (Normodyne Iv Push) 10 mg 1X ONCE IVP Last administered on 10/14/19at 00:03; Start 10/14/19 at 00:00; Stop 10/14/19 at 00:01; Status DC Ondansetron HCl (Zofran) 4 mg PRN Q8HRS PRN IV NAUSEA/VOMITING; Start 10/14/19 at 00:45; Stop 10/14/19 at 07:51; Status DC Acetaminophen (Tylenol) 650 mg PRN Q4HRS PRN PO FEVER; Start 10/14/19 at 00:45; Stop 10/14/19 at 07:48; Status DC Hydralazine HCl (Apresoline) 25 mg 1X ONCE PO Last administered on 10/14/19at 01:03; Start 10/14/19 at 00:45; Stop 10/14/19 at 00:46; Status DC Labetalol HCl (Normodyne Iv Push) 10 mg PRN Q6HRS PRN IVP ELEVATED BP, SEE COMMENTS Last administered on 10/14/19at 14:21; Start 10/14/19 at 00:45; Stop 10/14/19 at 16:18; Status DC Ondansetron HCl (Zofran) 4 mg PRN Q4HRS PRN IV NAUSEA/VOMITING; Start 10/14/19 at 07:45 Zolpidem Tartrate (Ambien) 5 mg PRN QHS PRN PO INSOMNIA; Start 10/14/19 at 07:45 Acetaminophen (Tylenol) 650 mg PRN Q4HRS PRN PO TEMP OVER 100.4F OR MILD PAIN Last administered on 10/14/19at 10:32; Start 10/14/19 at 07:45 Docusate Sodium (Colace) 100 mg PRN BID PRN PO CONSTIPATION; Start 10/14/19 at 07:45 Albuterol Sulfate (Ventolin Neb Soln) 2.5 mg PRN Q4HRS PRN NEB SHORTNESS OF BREATH Last administered on 10/14/19 11:48; Start 10/14/19 at 07:45 Nicardipine HCl 50 mg/Sodium Chloride 250 ml @ 25 mls/hr CONT PRN IV SEE I/O RECORD Last administered on 10/14/19 12:36; Start 10/14/19 at 07:45; Stop 10/14/19 at 16:18; Status DC Pantoprazole Sodium (Protonix) 40 mg DAILYAC PO Last administered on 10/15/19 08:57; Start 10/14/19 at 10:00 Calcium Carbonate/ Glycine (Tums) 500 mg PRN AFTMEALHC PRN PO INDIGESTION; Start 10/14/19 at 09:30 Polyethylene Glycol (miraLAX PACKET) 17 gm PRN DAILY PRN PO CONSTIPATION- 2ND CHOICE; Start 10/14/19 at 10:15 Diphenhydramine HCl (Benadryl) 25 mg PRN Q6HRS PRN IVP ITCHING Last administere d on 10/14/19at 10:32; Start 10/14/19 at 10:30 Amlodipine Besylate (Norvasc) 10 mg DAILY PO Last administered on 10/15/19 08:56; Start 10/14/19 at 12:00 Hydrochlorothiazide (Microzide) 12.5 mg 1X ONCE PO Last administered on 10/14/19 11:11; Start 10/14/19 at 12:00; Stop 10/14/19 at 12:01; Status DC Cyclobenzaprine HCl (Flexeril) 10 mg BID PO Last administered on 10/15/19 08:56; Start 10/14/19 at 21:00 Citalopram Hydrobromide (CeleXA) 40 mg DAILY PO Last administered on 10/15/19 08:57; Start 10/14/19 at 14:00 Potassium Chloride (Klor-Con) 40 meq 1X ONCE PO Last administered on 10/14/19 15:22; Start 10/14/19 at 15:00; Stop 10/14/19 at 15:01; Status DC Potassium Chloride (Klor-Con) 40 meq 1X ONCE PO Last administered on 10/14/19at 17:14; Start 10/14/19 at 17:30; Stop 10/14/19 at 17:31; Status DC Labetalol HCl (Normodyne Iv Push) 20 mg PRN Q2HR PRN IVP HYPERTENSION Last administered on 10/14/19at 17:14; Start 10/14/19 at 16:15 Hydrochlorothiazide (Hydrodiuril) 25 mg DAILY PO Last administered on 10/15/19at 09:02; Start 10/15/19 at 09:00 Carvedilol (Coreg) 6.25 mg BIDWMEALS PO Last administered on 10/15/19at 08:57; Start 10/14/19 at 17:00; Stop 10/15/19 at 09:57; Status DC Carvedilol (Coreg) 12.5 mg BIDWMEALS PO Last administered on 10/15/19at 17:03; Start 10/15/19 at 17:00 Carvedilol (Coreg) 12.5 mg 1X ONCE PO Last administered on 10/15/19at 10:39; Start 10/15/19 at 10:00; Stop 10/15/19 at 10:06; Status DC Active Scripts Active Reported Cyclobenzaprine Hcl 10 Mg Tablet 10 Mg PO BID Chlorthalidone 25 Mg Tablet 25 Mg PO DAILY Nifedipine Er (Nifedipine) 60 Mg Tablet.er 60 Mg PO DAILY Citalopram Hbr (Citalopram Hydrobromide) 40 Mg Tablet 40 Mg PO DAILY Klor-Con 8 (Potassium Chloride) 8 Meq Tablet.er 8 Meq PO DAILY Vitals/I & O Vital Sign - Last 24 Hours 10/14/19 10/15/19 10/15/19 10/15/19 23:45 03:40 07:00 08:00 Temp 98.3 97.8 97.9 98.3 97.8 97.9 Pulse 69 71 68 Resp 21 20 18 B/P (MAP) 176/100 (125) 173/95 (121) 172/107 (128) Pulse Ox 98 95 96 O2 Delivery Room Air Room Air Room Air Room Air 10/15/19 10/15/19 10/15/19 10/15/19 08:56 08:57 10:39 11:00 Temp 98.0 98.0 Pulse 71 71 72 70 Resp 18 B/P (MAP) 172/107 172/107 185/102 185/102 (129) Pulse Ox 98 O2 Delivery Room Air 10/15/19 10/15/19 10/15/19 15:00 17:03 19:45 Temp 97.7 98.4 97.7 98.4 Pulse 68 67 64 Resp 18 20 B/P (MAP) 160/111 (127) 179/107 171/96 (121) Pulse Ox 99 97 O2 Delivery Room Air Room Air Intake and Output 10/14/19 10/14/19 10/15/19 15:00 23:00 07:00 Intake Total 480 ml 100 ml Output Total 600 ml 250 ml 600 ml Balance -120 ml -250 ml -500 ml ENMA FLORES MD Oct 15, 2019 20:22
[2019-10-15] MEDS: FLUTICASONE 50MCG/NASAL SPRAY 16GM BOTTLE. NS PRN (21:39)
[2019-10-15 23:00] VITALS: BP 169/109
[2019-10-16 03:00] VITALS: BP 176/106
[2019-10-16] MEDS: ACETAMINOPHEN 325 MG TABLET. PO PRN (04:25)
[2019-10-16 07:00] VITALS: BP 184/131
[2019-10-16] MEDS: CYCLOBENZAPRINE 10 MG TABLET. PO SCH ×2 (08:25→22:11)
[2019-10-16] MEDS: CITALOPRAM 20 MG TABLET. PO SCH (08:26)
[2019-10-16] MEDS: CARVEDILOL 12.5 MG TABLET. PO SCH ×2 (08:26→17:43)
[2019-10-16] MEDS: hydrALAZINE 25 MG TABLET PO SCH ×3 (08:26→22:12)
[2019-10-16] MEDS: hydroCHLOROthiazide 25 MG TABLET PO SCH (08:27)
[2019-10-16] MEDS: PANTOPRAZOLE 40 MG TABLET.DR. PO SCH (08:27)
[2019-10-16] MEDS: amLODIPine BESYLATE 10 MG TABLET PO SCH (08:28)
--- NOTE | 2019-10-16 09:45 | PDOC ---
PROGRESS NOTES Chief Complaint Chief Complaint Hypertensive urgency Hypertensive encephalopathy History of medication nonadherence due to monetary constraints History of angioedema and uvulitis Mild pontine tonsil enlargement, may be reflective of underlying infectious or inflammatory process. Airways are otherwise patent. Plan: appreciate cardiology recommendations. Will discuss further treatment given the lack of response to the current regimen Labetalol We'll start the patient on amlodipine by mouth and HCTZ Monitor neurological status Follow recommendations from GI human capital consultant DVT prophylaxis with SCD Recommendations based on the clinical course hope to discharge soon once BP is improved History of Present Illness History of Present Illness No acute events reported overnight. Overall the patient feels better but he is quite concerned about his diastolic blood pressure being in the 130s. Reassurance has been provided no chest pain palpitations no signs of encephalopathy were voiced CONCERNS address to the best of my abilities Vitals Vitals Vital Signs Date Time Temp Pulse Resp B/P (MAP) Pulse Ox O2 Delivery O2 Flow Rate FiO2 10/16/19 08:28 73 184/131 10/16/19 08:00 Room Air 10/16/19 07:00 97.9 18 98 97.9 Physical Exam General: No acute distress Heart: Regular rate Abdomen: Normal bowel sounds Extremities: No cyanosis, No edema Skin: No breakdown, No significant lesion Assessment and Plan Assessmemt and Plan Problems Medical Problems: (1) Dysphagia Status: Acute (2) Hypertensive urgency Status: Acute Comment Review of Relevant I have reviewed the following items martín (where applicable) has been applied. Labs Laboratory Tests Test 10/14/19 09:50 10/14/19 17:00 10/14/19 18:00 10/15/19 03:15 White Blood Count 9.3 x10^3/uL (4.0-11.0) 11.5 x10^3/uL (4.0-11.0) Red Blood Count 5.65 x10^6/uL (4.30-5.70) 4.86 x10^6/uL (4.30-5.70) Hemoglobin 16.0 g/dL (13.0-17.5) 13.7 g/dL (13.0-17.5) Hematocrit 48.3 % (39.0-53.0) 42.1 % (39.0-53.0) Mean Corpuscular Volume 85 fL (79-100) 87 fL (79-100) Mean Corpuscular Hemoglobin 28 pg (25-35) 28 pg (25-35) Mean Corpuscular Hemoglobin Concent 33 g/dL (31-37) 33 g/dL (31-37) Red Cell Distribution Width 15.6 % (11.5-14.5) 15.7 % (11.5-14.5) Platelet Count 239 x10^3/uL (140-400) 205 x10^3/uL (140-400) Neutrophils (%) (Auto) 88 % (31-73) 71 % (31-73) Lymphocytes (%) (Auto) 9 % (24-48) 19 % (24-48) Monocytes (%) (Auto) 3 % (0-9) 10 % (0-9) Eosinophils (%) (Auto) 0 % (0-3) 0 % (0-3) Basophils (%) (Auto) 0 % (0-3) 0 % (0-3) Neutrophils # (Auto) 8.2 x10^3/uL (1.8-7.7) 8.1 x10^3/uL (1.8-7.7) Lymphocytes # (Auto) 0.8 x10^3/uL (1.0-4.8) 2.2 x10^3/uL (1.0-4.8) Monocytes # (Auto) 0.3 x10^3/uL (0.0-1.1) 1.1 x10^3/uL (0.0-1.1) Eosinophils # (Auto) 0.0 x10^3/uL (0.0-0.7) 0.0 x10^3/uL (0.0-0.7) Basophils # (Auto) 0.0 x10^3/uL (0.0-0.2) 0.0 x10^3/uL (0.0-0.2) Segmented Neutrophils % 86 % (35-66) Lymphocytes % 9 % (24-48) Monocytes % 5 % (0-10) Platelet Estimate Adequate (ADEQUATE) Platelet Clumps, EDTA Present Large Platelets Few Giant Platelets Occ Target Cells Occ Prothrombin Time 13.1 SEC (11.7-14.0) Prothromb Time International Ratio 1.0 (0.8-1.1) Sodium Level 142 mmol/L (136-145) Potassium Level 3.4 mmol/L (3.5-5.1) Chloride Level 105 mmol/L (98-107) Carbon Dioxide Level 23 mmol/L (21-32) Anion Gap 14 (6-14) Blood Urea Nitrogen 15 mg/dL (8-26) Creatinine 1.6 mg/dL (0.7-1.3) Estimated GFR (Cockcroft-Gault) 56.1 BUN/Creatinine Ratio 9 (6-20) Glucose Level 119 mg/dL (70-99) Calcium Level 9.3 mg/dL (8.5-10.1) Total Bilirubin 0.5 mg/dL (0.2-1.0) Aspartate Amino Transf (AST/SGOT) 22 U/L (15-37) Alanine Aminotransferase (ALT/SGPT) 32 U/L (16-63) Alkaline Phosphatase 65 U/L (46-116) Troponin I Quantitative < 0.017 ng/mL (0.000-0.055) 0.041 ng/mL (0.000-0.055) Total Protein 8.2 g/dL (6.4-8.2) Albumin 3.9 g/dL (3.4-5.0) Albumin/Globulin Ratio 0.9 (1.0-1.7) Thyroid Stimulating Hormone (TSH) 0.795 uIU/mL (0.358-3.74) Urine Collection Type Unknown Urine Color Yellow Urine Clarity Clear Urine pH 5.5 Urine Specific Shirley 1.020 Urine Protein 30 mg/dL (NEG-TRACE) Urine Glucose (UA) Negative mg/dL (NEG) Urine Ketones (Stick) Negative mg/dL (NEG) Urine Blood Negative (NEG) Urine Nitrite Negative (NEG) Urine Bilirubin Negative (NEG) Urine Urobilinogen Dipstick 0.2 mg/dL (0.2 mg/dL) Urine Leukocyte Esterase Moderate (NEG) Urine RBC Occ /HPF (0-2) Urine WBC 20-40 /HPF (0-4) Urine Squamous Epithelial Cells Few /LPF Urine Bacteria 0 /HPF (0-FEW) Urine Hyaline Casts Occasional /HPF Urine Mucus Marked /LPF Urine Trichomonas Present Test 10/15/19 03:25 Sodium Level 144 mmol/L (136-145) Potassium Level 3.9 mmol/L (3.5-5.1) Chloride Level 108 mmol/L (98-107) Carbon Dioxide Level 24 mmol/L (21-32) Anion Gap 12 (6-14) Blood Urea Nitrogen 19 mg/dL (8-26) Creatinine 1.5 mg/dL (0.7-1.3) Estimated GFR (Cockcroft-Gault) 60.4 BUN/Creatinine Ratio 13 (6-20) Glucose Level 107 mg/dL (70-99) Calcium Level 8.5 mg/dL (8.5-10.1) Total Bilirubin 0.3 mg/dL (0.2-1.0) Aspartate Amino Transf (AST/SGOT) 17 U/L (15-37) Alanine Aminotransferase (ALT/SGPT) 28 U/L (16-63) Alkaline Phosphatase 57 U/L (46-116) Total Protein 6.4 g/dL (6.4-8.2) Albumin 3.4 g/dL (3.4-5.0) Albumin/Globulin Ratio 1.1 (1.0-1.7) Triglycerides Level 57 mg/dL (0-150) Cholesterol Level 115 mg/dL (0-200) LDL Cholesterol, Calculated 60 mg/dL (0-100) VLDL Cholesterol, Calculated 11 mg/dL (0-40) Non-HDL Cholesterol Calculated 71 mg/dL (0-129) HDL Cholesterol 44 mg/dL (40-60) Cholesterol/HDL Ratio 2.6 Medications Current Medications Diphenhydramine HCl (Benadryl) 50 mg 1X ONCE IVP Last administered on 10/13/19at 21:45; Start 10/13/19 at 21:45; Stop 10/13/19 at 21:47; Status DC Famotidine (Pepcid Vial) 20 mg 1X ONCE IVP Last administered on 10/13/19at 21:45; Start 10/13/19 at 21:45; Stop 10/13/19 at 21:47; Status DC Methylprednisolone Sodium Succinate (SOLU-Medrol 125MG VIAL) 125 mg 1X ONCE IV Last administered on 10/13/19at 21:45; Start 10/13/19 at 21:45; Stop 10/13/19 at 21:47; Status DC Iohexol (Omnipaque 300 Mg/ml) 60 ml 1X ONCE IV Last administered on 10/13/19at 22:06; Start 10/13/19 at 22:15; Stop 10/13/19 at 22:16; Status DC Info (CONTRAST GIVEN -- Rx MONITORING) 1 each PRN DAILY PRN MC SEE COMMENTS; Start 10/13/19 at 22:15; Stop 10/15/19 at 22:14; Status DC Iohexol (Omnipaque 300 Mg/ml) 100 ml STK-MED ONCE .ROUTE ; Start 10/13/19 at 22:01; Stop 10/13/19 at 22:01; Status DC Glucagon (Glucagen) 1 mg 1X ONCE IV Last administered on 10/13/19at 22:49; Start 10/13/19 at 23:00; Stop 10/13/19 at 23:01; Status DC Glucagon (Glucagen) 1 mg STK-MED ONCE .ROUTE ; Start 10/13/19 at 22:46; Stop 10/13/19 at 22:46; Status DC Lorazepam (Ativan Inj) 1 mg 1X ONCE IVP Last administered on 10/13/19at 23:07; Start 10/13/19 at 23:00; Stop 10/13/19 at 23:01; Status DC Hydralazine HCl (Apresoline Inj) 10 mg 1X ONCE IVP Last administered on 10/13/19at 23:08; Start 10/13/19 at 23:00; Stop 10/13/19 at 23:01; Status DC Labetalol HCl (Normodyne Iv Push) 10 mg 1X ONCE IVP Last administered on 10/14/19at 00:03; Start 10/14/19 at 00:00; Stop 10/14/19 at 00:01; Status DC Ondansetron HCl (Zofran) 4 mg PRN Q8HRS PRN IV NAUSEA/VOMITING; Start 10/14/19 at 00:45; Stop 10/14/19 at 07:51; Status DC Acetaminophen (Tylenol) 650 mg PRN Q4HRS PRN PO FEVER; Start 10/14/19 at 00:45; Stop 10/14/19 at 07:48; Status DC Hydralazine HCl (Apresoline) 25 mg 1X ONCE PO Last administered on 10/14/19at 0 1:03; Start 10/14/19 at 00:45; Stop 10/14/19 at 00:46; Status DC Labetalol HCl (Normodyne Iv Push) 10 mg PRN Q6HRS PRN IVP ELEVATED BP, SEE COMMENTS Last administered on 10/14/19at 14:21; Start 10/14/19 at 00:45; Stop 10/14/19 at 16:18; Status DC Ondansetron HCl (Zofran) 4 mg PRN Q4HRS PRN IV NAUSEA/VOMITING; Start 10/14/19 at 07:45 Zolpidem Tartrate (Ambien) 5 mg PRN QHS PRN PO INSOMNIA; Start 10/14/19 at 07:45 Acetaminophen (Tylenol) 650 mg PRN Q4HRS PRN PO TEMP OVER 100.4F OR MILD PAIN Last administered on 10/16/19at 04:25; Start 10/14/19 at 07:45 Docusate Sodium (Colace) 100 mg PRN BID PRN PO CONSTIPATION; Start 10/14/19 at 07:45 Albuterol Sulfate (Ventolin Neb Soln) 2.5 mg PRN Q4HRS PRN NEB SHORTNESS OF BREATH Last administered on 10/14/19at 11:48; Start 10/14/19 at 07:45 Nicardipine HCl 50 mg/Sodium Chloride 250 ml @ 25 mls/hr CONT PRN IV SEE I/O RECORD Last administered on 10/14/19at 12:36; Start 10/14/19 at 07:45; Stop 10/14/19 at 16:18; Status DC Pantoprazole Sodium (Protonix) 40 mg DAILYAC PO Last administered on 10/16/19at 08:27; Start 10/14/19 at 10:00 Calcium Carbonate/ Glycine (Tums) 500 mg PRN AFTMEALHC PRN PO INDIGESTION; Start 10/14/19 at 09:30 Polyethylene Glycol (miraLAX PACKET) 17 gm PRN DAILY PRN PO CONSTIPATION- 2ND CHOICE; Start 10/14/19 at 10:15 Diphenhydramine HCl (Benadryl) 25 mg PRN Q6HRS PRN IVP ITCHING Last administered on 10/14/19at 10:32; Start 10/14/19 at 10:30 Amlodipine Besylate (Norvasc) 10 mg DAILY PO Last administered on 10/16/19at 08:28; Start 10/14/19 at 12:00 Hydrochlorothiazide (Microzide) 12.5 mg 1X ONCE PO Last administered on 10/14/19at 11:11; Start 10/14/19 at 12:00; Stop 10/14/19 at 12:01; Status DC Cyclobenzaprine HCl (Flexeril) 10 mg BID PO Last administered on 10/16/19 08:25; Start 10/14/19 at 21:00 Citalopram Hydrobromide (CeleXA) 40 mg DAILY PO Last administered on 10/16/19at 08:26; Start 10/14/19 at 14:00 Potassium Chloride (Klor-Con) 40 meq 1X ONCE PO Last administered on 10/14/19at 15:22; Start 10/14/19 at 15:00; Stop 10/14/19 at 15:01; Status DC Potassium Chloride (Klor-Con) 40 meq 1X ONCE PO Last administered on 10/14/19at 17:14; Start 10/14/19 at 17:30; Stop 10/14/19 at 17:31; Status DC Labetalol HCl (Normodyne Iv Push) 20 mg PRN Q2HR PRN IVP HYPERTENSION Last administered on 10/14/19 17:14; Start 10/14/19 at 16:15 Hydrochlorothiazide (Hydrodiuril) 25 mg DAILY PO Last administered on 10/16/19at 08:27; Start 10/15/19 at 09:00 Carvedilol (Coreg) 6.25 mg BIDWMEALS PO Last administered on 10/15/19 08:57; Start 10/14/19 at 17:00; Stop 10/15/19 at 09:57; Status DC Carvedilol (Coreg) 12.5 mg BIDWMEALS PO Last administered on 10/16/19 08:26; Start 10/15/19 at 17:00 Carvedilol (Coreg) 12.5 mg 1X ONCE PO Last administered on 10/15/19at 10:39; Start 10/15/19 at 10:00; Stop 10/15/19 at 10:06; Status DC Fluticasone Propionate (Flonase) 2 spray PRN DAILY PRN NS ALLERGIES Last administered on 10/15/19at 21:39; Start 10/15/19 at 20:45 Hydralazine HCl (Apresoline) 25 mg TID PO Last administered on 10/16/19at 08:26; Start 10/16/19 at 09:00 Active Scripts Active Reported Cyclobenzaprine Hcl 10 Mg Tablet 10 Mg PO BID Chlorthalidone 25 Mg Tablet 25 Mg PO DAILY Nifedipine Er (Nifedipine) 60 Mg Tablet.er 60 Mg PO DAILY Citalopram Hbr (Citalopram Hydrobromide) 40 Mg Tablet 40 Mg PO DAILY Klor-Con 8 (Potassium Chloride) 8 Meq Tablet.er 8 Meq PO DAILY Vitals/I & O Vital Sign - Last 24 Hours 10/15/19 10/15/19 10/15/19 10/15/19 10:39 11:00 15:00 17:03 Temp 98.0 97.7 98.0 97.7 Pulse 72 70 68 67 Resp 18 18 B/P (MAP) 185/102 185/102 (129) 160/111 (127) 179/107 Pulse Ox 98 99 O2 Delivery Room Air Room Air 10/15/19 10/15/19 10/15/19 10/16/19 19:45 20:10 23:00 03:00 Temp 98.4 98.6 98.5 98.4 98.6 98.5 Pulse 64 68 69 Resp 20 21 20 B/P (MAP) 171/96 (121) 169/109 (129) 176/106 (129) Pulse Ox 97 97 100 O2 Delivery Room Air Room Air Room Air Room Air 10/16/19 10/16/19 10/16/19 10/16/19 07:00 08:00 08:26 08:26 Temp 97.9 97.9 Pulse 67 72 73 Resp 18 B/P (MAP) 184/131 (148) 184/131 184/131 Pulse Ox 98 O2 Delivery Room Air Room Air 10/16/19 08:28 Pulse 73 B/P (MAP) 184/131 Intake and Output 10/15/19 10/15/19 10/16/19 15:00 23:00 07:00 Intake Total 240 ml 600 ml 220 ml Output Total 1000 ml Balance 240 ml 600 ml -780 ml ENMA FLORES MD Oct 16, 2019 09:45
[2019-10-16 11:00] VITALS: BP 176/112
[2019-10-16 11:00] LABS: BASO # 0.1 x10^3/uL (0.0-0.2); BASO % 1 % (0-3); EOS # 0.1 x10^3/uL (0.0-0.7); EOS % 1 % (0-3); HEMATOCRIT 46.6 % (39.0-53.0); HEMOGLOBIN 15.6 g/dL (13.0-17.5); LYMPH % 21 % (24-48); MEAN CORPUSCULAR HEMOGLOBIN 28 pg (25-35); MEAN CORPUSCULAR HGB CONC 33 g/dL (31-37); MEAN CORPUSCULAR VOLUME 85 fL (79-100); MONO # 1.1 x10^3/uL (0.0-1.1); MONO % 12 % (0-9); NEUT # 6.3 x10^3/uL (1.8-7.7); NEUT % 66 % (31-73); PLATELET COUNT 231 x10^3/uL (140-400); RED BLOOD COUNT 5.47 x10^6/uL (4.30-5.70); RED CELL DISTRIBUTION WIDTH 15.4 % (11.5-14.5); WHITE BLOOD COUNT 9.5 x10^3/uL (4.0-11.0)
[2019-10-16] MEDS ORDERED: metroNIDAZOLE 500 MG TABLET PO ONE (11:00)
[2019-10-16 11:07] LABS: CALCIUM 8.8 mg/dL (8.5-10.1); CREATININE 1.7 mg/dL (0.7-1.3); GFR 52.3; POTASSIUM 3.3 mmol/L (3.5-5.1)
--- NOTE | 2019-10-16 12:38 | PDOC ---
PROGRESS NOTES Subjective Subjective Patient seen and examined Objective Objective Vital Signs Date Time Temp Pulse Resp B/P (MAP) Pulse Ox O2 Delivery O2 Flow Rate FiO2 10/16/19 11:00 98.1 65 18 176/112 (133) 98 Room Air 98.1 Intake and Output 10/16/19 07:00 Intake Total 1060 ml Output Total 1000 ml Balance 60 ml Intake Oral 1060 ml Output Urine Total 1000 ml # Voids 3 Physical Exam Abdomen: Normal bowel sounds Heart: Regular rate General: No acute distress Lungs: Clear to auscultation Assessment Assessment Problems Medical Problems: (1) Dysphagia Status: Acute (2) Hypertensive urgency Status: Acute 1. HTN urgency: due to noncompliance. Approved but still not controlled. On Norvasc 10 mg a day, Coreg 12.5 mg twice a day and hydrochlorothiazide 25 mg a day. Hydralazine 25 mg 3 times a day added this morning. Medications limited by his severe allergy to RM inhibitor and his creatinine which is now increased to 1.7. Discussed with the patient. 2. Noncompliance 3. Obesity 4. Suspected MARK 5 Creat. further increased to 1.7. 6. Chronic low back pain: controlled 7. Globus sensation: improved. Seen by GI. Comment Review of Relevant I have reviewed the following items martín (where applicable) has been applied. Labs Laboratory Tests Test 10/14/19 17:00 10/14/19 18:00 10/15/19 03:15 10/15/19 03:25 Urine Collection Type Unknown Urine Color Yellow Urine Clarity Clear Urine pH 5.5 Urine Specific [place] 1.020 Urine Protein 30 mg/dL (NEG-TRACE) Urine Glucose (UA) Negative mg/dL (NEG) Urine Ketones (Stick) Negative mg/dL (NEG) Urine Blood Negative (NEG) Urine Nitrite Negative (NEG) Urine Bilirubin Negative (NEG) Urine Urobilinogen Dipstick 0.2 mg/dL (0.2 mg/dL) Urine Leukocyte Esterase Moderate (NEG) Urine RBC Occ /HPF (0-2) Urine WBC 20-40 /HPF (0-4) Urine Squamous Epithelial Cells Few /LPF Urine Bacteria 0 /HPF (0-FEW) Urine Hyaline Casts Occasional /HPF Urine Mucus Marked /LPF Urine Trichomonas Present Troponin I Quantitative 0.041 ng/mL (0.000-0.055) White Blood Count 11.5 x10^3/uL (4.0-11.0) Red Blood Count 4.86 x10^6/uL (4.30-5.70) Hemoglobin 13.7 g/dL (13.0-17.5) Hematocrit 42.1 % (39.0-53.0) Mean Corpuscular Volume 87 fL (79-100) Mean Corpuscular Hemoglobin 28 pg (25-35) Mean Corpuscular Hemoglobin Concent 33 g/dL (31-37) Red Cell Distribution Width 15.7 % (11.5-14.5) Platelet Count 205 x10^3/uL (140-400) Neutrophils (%) (Auto) 71 % (31-73) Lymphocytes (%) (Auto) 19 % (24-48) Monocytes (%) (Auto) 10 % (0-9) Eosinophils (%) (Auto) 0 % (0-3) Basophils (%) (Auto) 0 % (0-3) Neutrophils # (Auto) 8.1 x10^3/uL (1.8-7.7) Lymphocytes # (Auto) 2.2 x10^3/uL (1.0-4.8) Monocytes # (Auto) 1.1 x10^3/uL (0.0-1.1) Eosinophils # (Auto) 0.0 x10^3/uL (0.0-0.7) Basophils # (Auto) 0.0 x10^3/uL (0.0-0.2) Sodium Level 144 mmol/L (136-145) Potassium Level 3.9 mmol/L (3.5-5.1) Chloride Level 108 mmol/L (98-107) Carbon Dioxide Level 24 mmol/L (21-32) Anion Gap 12 (6-14) Blood Urea Nitrogen 19 mg/dL (8-26) Creatinine 1.5 mg/dL (0.7-1.3) Estimated GFR (Cockcroft-Gault) 60.4 BUN/Creatinine Ratio 13 (6-20) Glucose Level 107 mg/dL (70-99) Calcium Level 8.5 mg/dL (8.5-10.1) Total Bilirubin 0.3 mg/dL (0.2-1.0) Aspartate Amino Transf (AST/SGOT) 17 U/L (15-37) Alanine Aminotransferase (ALT/SGPT) 28 U/L (16-63) Alkaline Phosphatase 57 U/L (46-116) Total Protein 6.4 g/dL (6.4-8.2) Albumin 3.4 g/dL (3.4-5.0) Albumin/Globulin Ratio 1.1 (1.0-1.7) Triglycerides Level 57 mg/dL (0-150) Cholesterol Level 115 mg/dL (0-200) LDL Cholesterol, Calculated 60 mg/dL (0-100) VLDL Cholesterol, Calculated 11 mg/dL (0-40) Non-HDL Cholesterol Calculated 71 mg/dL (0-129) HDL Cholesterol 44 mg/dL (40-60) Cholesterol/HDL Ratio 2.6 Test 10/16/19 10:40 White Blood Count 9.5 x10^3/uL (4.0-11.0) Red Blood Count 5.47 x10^6/uL (4.30-5.70) Hemoglobin 15.6 g/dL (13.0-17.5) Hematocrit 46.6 % (39.0-53.0) Mean Corpuscular Volume 85 fL (79-100) Mean Corpuscular Hemoglobin 28 pg (25-35) Mean Corpuscular Hemoglobin Concent 33 g/dL (31-37) Red Cell Distribution Width 15.4 % (11.5-14.5) Platelet Count 231 x10^3/uL (140-400) Neutrophils (%) (Auto) 66 % (31-73) Lymphocytes (%) (Auto) 21 % (24-48) Monocytes (%) (Auto) 12 % (0-9) Eosinophils (%) (Auto) 1 % (0-3) Basophils (%) (Auto) 1 % (0-3) Neutrophils # (Auto) 6.3 x10^3/uL (1.8-7.7) Lymphocytes # (Auto) 2.0 x10^3/uL (1.0-4.8) Monocytes # (Auto) 1.1 x10^3/uL (0.0-1.1) Eosinophils # (Auto) 0.1 x10^3/uL (0.0-0.7) Basophils # (Auto) 0.1 x10^3/uL (0.0-0.2) Sodium Level 138 mmol/L (136-145) Potassium Level 3.3 mmol/L (3.5-5.1) Chloride Level 101 mmol/L (98-107) Carbon Dioxide Level 28 mmol/L (21-32) Anion Gap 9 (6-14) Blood Urea Nitrogen 21 mg/dL (8-26) Creatinine 1.7 mg/dL (0.7-1.3) Estimated GFR (Cockcroft-Gault) 52.3 Glucose Level 111 mg/dL (70-99) Calcium Level 8.8 mg/dL (8.5-10.1) Laboratory Tests Test 10/16/19 10:40 White Blood Count 9.5 x10^3/uL (4.0-11.0) Red Blood Count 5.47 x10^6/uL (4.30-5.70) Hemoglobin 15.6 g/dL (13.0-17.5) Hematocrit 46.6 % (39.0-53.0) Mean Corpuscular Volume 85 fL (79-100) Mean Corpuscular Hemoglobin 28 pg (25-35) Mean Corpuscular Hemoglobin Concent 33 g/dL (31-37) Red Cell Distribution Width 15.4 % (11.5-14.5) Platelet Count 231 x10^3/uL (140-400) Neutrophils (%) (Auto) 66 % (31-73) Lymphocytes (%) (Auto) 21 % (24-48) Monocytes (%) (Auto) 12 % (0-9) Eosinophils (%) (Auto) 1 % (0-3) Basophils (%) (Auto) 1 % (0-3) Neutrophils # (Auto) 6.3 x10^3/uL (1.8-7.7) Lymphocytes # (Auto) 2.0 x10^3/uL (1.0-4.8) Monocytes # (Auto) 1.1 x10^3/uL (0.0-1.1) Eosinophils # (Auto) 0.1 x10^3/uL (0.0-0.7) Basophils # (Auto) 0.1 x10^3/uL (0.0-0.2) Sodium Level 138 mmol/L (136-145) Potassium Level 3.3 mmol/L (3.5-5.1) Chloride Level 101 mmol/L (98-107) Carbon Dioxide Level 28 mmol/L (21-32) Anion Gap 9 (6-14) Blood Urea Nitrogen 21 mg/dL (8-26) Creatinine 1.7 mg/dL (0.7-1.3) Estimated GFR (Cockcroft-Gault) 52.3 Glucose Level 111 mg/dL (70-99) Calcium Level 8.8 mg/dL (8.5-10.1) Medications Current Medications Diphenhydramine HCl (Benadryl) 50 mg 1X ONCE IVP Last administered on 10/13/19at 21:45; Start 10/13/19 at 21:45; Stop 10/13/19 at 21:47; Status DC Famotidine (Pepcid Vial) 20 mg 1X ONCE IVP Last administered on 10/13/19at 21:45; Start 10/13/19 at 21:45; Stop 10/13/19 at 21:47; Status DC Methylprednisolone Sodium Succinate (SOLU-Medrol 125MG VIAL) 125 mg 1X ONCE IV Last administered on 10/13/19at 21:45; Start 10/13/19 at 21:45; Stop 10/13/19 at 21:47; Status DC Iohexol (Omnipaque 300 Mg/ml) 60 ml 1X ONCE IV Last administered on 10/13/19at 22:06; Start 10/13/19 at 22:15; Stop 10/13/19 at 22:16; Status DC Info (CONTRAST GIVEN -- Rx MONITORING) 1 each PRN DAILY PRN MC SEE COMMENTS; Start 10/13/19 at 22:15; Stop 10/15/19 at 22:14; Status DC Iohexol (Omnipaque 300 Mg/ml) 100 ml STK-MED ONCE .ROUTE ; Start 10/13/19 at 22:01; Stop 10/13/19 at 22:01; Status DC Glucagon (Glucagen) 1 mg 1X ONCE IV Last administered on 10/13/19at 22:49; Start 10/13/19 at 23:00; Stop 10/13/19 at 23:01; Status DC Glucagon (Glucagen) 1 mg STK-MED ONCE .ROUTE ; Start 10/13/19 at 22:46; Stop 10/13/19 at 22:46; Status DC Lorazepam (Ativan Inj) 1 mg 1X ONCE IVP Last administered on 10/13/19at 23:07; Start 10/13/19 at 23:00; Stop 10/13/19 at 23:01; Status DC Hydralazine HCl (Apresoline Inj) 10 mg 1X ONCE IVP Last administered on 10/13/19at 23:08; Start 10/13/19 at 23:00; Stop 10/13/19 at 23:01; Status DC Labetalol HCl (Normodyne Iv Push) 10 mg 1X ONCE IVP Last administered on 10/14/19at 00:03; Start 10/14/19 at 00:00; Stop 10/14/19 at 00:01; Status DC Ondansetron HCl (Zofran) 4 mg PRN Q8HRS PRN IV NAUSEA/VOMITING; Start 10/14/19 at 00:45; Stop 10/14/19 at 07:51; Status DC Acetaminophen (Tylenol) 650 mg PRN Q4HRS PRN PO FEVER; Start 10/14/19 at 00:45; Stop 10/14/19 at 07:48; Status DC Hydralazine HCl (Apresoline) 25 mg 1X ONCE PO Last administered on 10/14/19at 01:03; Start 10/14/19 at 00:45; Stop 10/14/19 at 00:46; Status DC Labetalol HCl (Normodyne Iv Push) 10 mg PRN Q6HRS PRN IVP ELEVATED BP, SEE COMMENTS Last administered on 10/14/19at 14:21; Start 10/14/19 at 00:45; Stop 10/14/19 at 16:18; Status DC Ondansetron HCl (Zofran) 4 mg PRN Q4HRS PRN IV NAUSEA/VOMITING; Start 10/14/19 at 07:45 Zolpidem Tartrate (Ambien) 5 mg PRN QHS PRN PO INSOMNIA; Start 10/14/19 at 07:45 Acetaminophen (Tylenol) 650 mg PRN Q4HRS PRN PO TEMP OVER 100.4F OR MILD PAIN Last administered on 10/16/19at 04:25; Start 10/14/19 at 07:45 Docusate Sodium (Colace) 100 mg PRN BID PRN PO CONSTIPATION; Start 2/7/20 at 0 7:45 Albuterol Sulfate (Ventolin Neb Soln) 2.5 mg PRN Q4HRS PRN NEB SHORTNESS OF BREATH Last administered on 10/14/19at 11:48; Start 10/14/19 at 07:45 Nicardipine HCl 50 mg/Sodium Chloride 250 ml @ 25 mls/hr CONT PRN IV SEE I/O RECORD Last administered on 10/14/19at 12:36; Start 10/14/19 at 07:45; Stop 10/14/19 at 16:18; Status DC Pantoprazole Sodium (Protonix) 40 mg DAILYAC PO Last administered on 10/16/19 08:27; Start 10/14/19 at 10:00 Calcium Carbonate/ Glycine (Tums) 500 mg PRN AFTMEALHC PRN PO INDIGESTION; Start 10/14/19 at 09:30 Polyethylene Glycol (miraLAX PACKET) 17 gm PRN DAILY PRN PO CONSTIPATION- 2ND CHOICE; Start 10/14/19 at 10:15 Diphenhydramine HCl (Benadryl) 25 mg PRN Q6HRS PRN IVP ITCHING Last administered on 10/14/19at 10:32; Start 10/14/19 at 10:30 Amlodipine Besylate (Norvasc) 10 mg DAILY PO Last administered on 10/16/19 08:28; Start 10/14/19 at 12:00 Hydrochlorothiazide (Microzide) 12.5 mg 1X ONCE PO Last administered on 10/14/19at 11:11; Start 10/14/19 at 12:00; Stop 10/14/19 at 12:01; Status DC Cyclobenzaprine HCl (Flexeril) 10 mg BID PO Last administered on 10/16/19at 08:25; Start 10/14/19 at 21:00 Citalopram Hydrobromide (CeleXA) 40 mg DAILY PO Last administered on 10/16/19 08:26; Start 10/14/19 at 14:00 Potassium Chloride (Klor-Con) 40 meq 1X ONCE PO Last administered on 10/14/19at 15:22; Start 10/14/19 at 15:00; Stop 10/14/19 at 15:01; Status DC Potassium Chloride (Klor-Con) 40 meq 1X ONCE PO Last administered on 10/14/19at 17:14; Start 10/14/19 at 17:30; Stop 10/14/19 at 17:31; Status DC Labetalol HCl (Normodyne Iv Push) 20 mg PRN Q2HR PRN IVP HYPERTENSION Last administered on 10/14/19at 17:14; Start 10/14/19 at 16:15 Hydrochlorothiazide (Hydrodiuril) 25 mg DAILY PO Last administered on 10/16/19 08:27; Start 10/15/19 at 09:00 Carvedilol (Coreg) 6.25 mg BIDWMEALS PO Last administered on 10/15/19 08:57; Start 10/14/19 at 17:00; Stop 10/15/19 at 09:57; Status DC Carvedilol (Coreg) 12.5 mg BIDWMEALS PO Last administered on 10/16/19at 08:26; Start 10/15/19 at 17:00 Carvedilol (Coreg) 12.5 mg 1X ONCE PO Last administered on 10/15/19at 10:39; Start 10/15/19 at 10:00; Stop 10/15/19 at 10:06; Status DC Fluticasone Propionate (Flonase) 2 spray PRN DAILY PRN NS ALLERGIES Last administered on 10/15/19 21:39; Start 10/15/19 at 20:45 Hydralazine HCl (Apresoline) 25 mg TID PO Last administered on 10/16/19 08:26; Start 10/16/19 at 09:00 Metronidazole (Flagyl) 2,000 mg 1X ONCE PO Last administered on 10/16/19at 12:22; Start 10/16/19 at 11:00; Stop 10/16/19 at 11:01; Status DC Active Scripts Active Reported Cyclobenzaprine Hcl 10 Mg Tablet 10 Mg PO BID Chlorthalidone 25 Mg Tablet 25 Mg PO DAILY Nifedipine Er (Nifedipine) 60 Mg Tablet.er 60 Mg PO DAILY Citalopram Hbr (Citalopram Hydrobromide) 40 Mg Tablet 40 Mg PO DAILY Klor-Con 8 (Potassium Chloride) 8 Meq Tablet.er 8 Meq PO DAILY Vitals/I & O Vital Sign - Last 24 Hours 10/15/19 10/15/19 10/15/19 10/15/19 15:00 17:03 19:45 20:10 Temp 97.7 98.4 97.7 98.4 Pulse 68 67 64 Resp 18 20 B/P (MAP) 160/111 (127) 179/107 171/96 (121) Pulse Ox 99 97 O2 Delivery Room Air Room Air Room Air 10/15/19 10/16/19 10/16/19 10/16/19 23:00 03:00 07:00 08:00 Temp 98.6 98.5 97.9 98.6 98.5 97.9 Pulse 68 69 67 Resp 21 20 18 B/P (MAP) 169/109 (129) 176/106 (129) 184/131 (148) Pulse Ox 97 100 98 O2 Delivery Room Air Room Air Room Air Room Air 10/16/19 10/16/19 10/16/19 10/16/19 08:26 08:26 08:28 11:00 Temp 98.1 98.1 Pulse 72 73 73 65 Resp 18 B/P (MAP) 184/131 184/131 184/131 176/112 (133) Pulse Ox 98 O2 Delivery Room Air Intake and Output 10/15/19 10/15/19 10/16/19 15:00 23:00 07:00 Intake Total 240 ml 600 ml 220 ml Output Total 1000 ml Balance 240 ml 600 ml -780 ml SAEID WILKINSON MD Oct 16, 2019 12:38
[2019-10-16 15:00] VITALS: BP 157/101
[2019-10-16 18:49] VITALS: BP 175/108
[2019-10-16] MEDS ORDERED: POTASSIUM CHLORIDE 20 MEQ TABLET.ER. PO ONE (19:30)
[2019-10-16] MEDS: FLUTICASONE 50MCG/NASAL SPRAY 16GM BOTTLE. NS PRN (22:14)
[2019-10-16 23:00] VITALS: BP 159/98
[2019-10-17 03:45] VITALS: BP 151/106
[2019-10-17 07:25] VITALS: BP 161/124
[2019-10-17] MEDS: hydroCHLOROthiazide 25 MG TABLET PO SCH (08:20)
[2019-10-17] MEDS: CARVEDILOL 12.5 MG TABLET. PO SCH ×2 (08:21→17:02)
[2019-10-17] MEDS: PANTOPRAZOLE 40 MG TABLET.DR. PO SCH (08:21)
[2019-10-17] MEDS: CYCLOBENZAPRINE 10 MG TABLET. PO SCH ×2 (08:21→20:40)
[2019-10-17] MEDS: hydrALAZINE 25 MG TABLET PO SCH ×3 (08:21→20:40)
[2019-10-17] MEDS: CITALOPRAM 20 MG TABLET. PO SCH (08:22)
[2019-10-17] MEDS: amLODIPine BESYLATE 10 MG TABLET PO SCH (08:22)
--- NOTE | 2019-10-17 10:26 | PDOC ---
Subjective: Subjective: No GI complaints - no dysphagia, n/v, abd pain, diarrhea, or constipation. Objective: Vital Signs: Vital Signs Date Time Temp Pulse Resp B/P (MAP) Pulse Ox O2 Delivery O2 Flow Rate FiO2 10/17/19 08:37 98 Room Air 10/17/19 08:22 71 161/124 10/17/19 07:25 98.7 20 98.7 PE: GEN: NAD LUNGS: CTAB HEART: RRR ABD: NABS, S/ND/NT NEURO/PSYCH: A & O 3 A/P: HTN, non-compliance Globus - resolved -- Continue PPI, plan for outpt 'scopes. VITA BALL Oct 17, 2019 10:26
--- NOTE | 2019-10-17 10:27 | PDOC ---
CARDIO Progress Notes Date and Time Date of Service 10/17/19 Time of Evaluation 1015 Subjective Subjective: No Chest Pain, No shortness of breath, No Palpitations Vitals Vitals Vital Signs Date Time Temp Pulse Resp B/P (MAP) Pulse Ox O2 Delivery O2 Flow Rate FiO2 10/17/19 08:37 98 Room Air 10/17/19 08:22 71 161/124 10/17/19 07:25 98.7 20 98.7 Weight Weight [ ] Input and Output Intake and Output Intake and Output 10/17/19 07:00 Intake Total 2200 ml Output Total 1350 ml Balance 850 ml Intake Oral 2200 ml Output Urine Total 1350 ml Laboratory Labs Laboratory Tests Test 10/16/19 10:40 White Blood Count 9.5 x10^3/uL (4.0-11.0) Red Blood Count 5.47 x10^6/uL (4.30-5.70) Hemoglobin 15.6 g/dL (13.0-17.5) Hematocrit 46.6 % (39.0-53.0) Mean Corpuscular Volume 85 fL (79-100) Mean Corpuscular Hemoglobin 28 pg (25-35) Mean Corpuscular Hemoglobin Concent 33 g/dL (31-37) Red Cell Distribution Width 15.4 % (11.5-14.5) Platelet Count 231 x10^3/uL (140-400) Neutrophils (%) (Auto) 66 % (31-73) Lymphocytes (%) (Auto) 21 % (24-48) Monocytes (%) (Auto) 12 % (0-9) Eosinophils (%) (Auto) 1 % (0-3) Basophils (%) (Auto) 1 % (0-3) Neutrophils # (Auto) 6.3 x10^3/uL (1.8-7.7) Lymphocytes # (Auto) 2.0 x10^3/uL (1.0-4.8) Monocytes # (Auto) 1.1 x10^3/uL (0.0-1.1) Eosinophils # (Auto) 0.1 x10^3/uL (0.0-0.7) Basophils # (Auto) 0.1 x10^3/uL (0.0-0.2) Sodium Level 138 mmol/L (136-145) Potassium Level 3.3 mmol/L (3.5-5.1) Chloride Level 101 mmol/L (98-107) Carbon Dioxide Level 28 mmol/L (21-32) Anion Gap 9 (6-14) Blood Urea Nitrogen 21 mg/dL (8-26) Creatinine 1.7 mg/dL (0.7-1.3) Estimated GFR (Cockcroft-Gault) 52.3 Glucose Level 111 mg/dL (70-99) Calcium Level 8.8 mg/dL (8.5-10.1) Physical Exam HEENT: Neck Supple W Full Motion Chest: Symmetric LUNGS: Clear to Auscultation Heart: S1S2, RRR Abdomen: Soft N/T Extremities: No Edema Neurology: alert, oriented, follow commands Assessment Assessment 1. HTN urgency: due to noncompliance. Better controlled, but remains elevated.. 2. Noncompliance; reinforced importance of medical compliance 3. Obesity 4. Suspected MARK 5 BRAEDEN; Cr up to 1.7 6. Chronic low back pain: controlled Recommendations Continue Norvasc, HCTZ Increase coreg and hydralazine as BP remains elevated Allergy to ACEi Outpatient BP monitoring. Will f/u with [facility], [place] TAYLER LUCERO APRN Oct 17, 2019 10:27
[2019-10-17] MEDS ORDERED: CARVEDILOL 12.5 MG TABLET. PO ONE (10:30)
[2019-10-17 10:43] VITALS: BP 169/114
[2019-10-17 14:31] VITALS: BP 160/89
--- NOTE | 2019-10-17 15:47 | PDOC ---
[facility] [facility] PROGRESS NOTE Chief Complaint Chief Complaint Hypertensive urgency Hypertensive encephalopathy History of medication nonadherence due to monetary constraints History of angioedema and uvulitis Mild pontine tonsil enlargement, may be reflective of underlying infectious or inflammatory process. Airways are otherwise patent. Plan: appreciate cardiology recommendations. Will discuss further treatment given the lack of response to the current regimen Labetalol We'll start the patient on amlodipine by mouth and HCTZ Monitor neurological status Follow recommendations from GI managing consultant DVT prophylaxis with SCD Recommendations based on the clinical course hope to discharge soon once BP is improved History of Present Illness History of Present Illness No acute events reported overnight. Overall the patient feels better but he is quite concerned about his diastolic blood pressure being in the 130s. Reassurance has been provided no chest pain palpitations no signs of encephalopathy were voiced CONCERNS address to the best of my abilities 10/17/2019 - pt seen and examined - pt discussed with RN - GI consulted because of throat pain and dysphagia - medication list consulted and pertinent prescription were prescribed - no acute events over night Vitals/I&O Vitals/I&O: Vital Signs Date Time Temp Pulse Resp B/P (MAP) Pulse Ox O2 Delivery O2 Flow Rate FiO2 10/17/19 14:31 98.4 69 20 160/89 (112) 100 Room Air 98.4 I & O 10/16/19 10/16/19 10/17/19 15:00 23:00 07:00 Intake Total 480 ml 600 ml 1120 ml Output Total 1050 ml 300 ml Balance 480 ml -450 ml 820 ml Physical Exam General: Alert, No acute distress Heart: Regular rate Abdomen: Normal bowel sounds Extremities: No cyanosis, No edema Skin: No breakdown, No significant lesion Review of Systems Review of Systems: GI: denies NV, abdominal pain, change in Bowel movement Neuro: no change in vision, proprioception. denies DUMONT Assessment and Plan Assessmemt and Plan Hypertensive urgency Hypertensive encephalopathy History of medication nonadherence due to monetary constraints History of angioedema and uvulitis Mild pontine tonsil enlargement, may be reflective of underlying infectious or inflammatory process. Airways are otherwise patent. Plan: - Increase medications - probable discharge in the afternoon pending disposition - renew carvedilol, hydralazine, amlodipine, and HCTZ - cardiac monitoring - continue normal medication Comment Review of Relevant I have reviewed the following items martín (where applicable) has been applied. Medications: Current Medications Medications (Trade) Dose Ordered Sig/Marquita Route PRN Reason Start Time Stop Time Status Last Admin Dose Admin Potassium Chloride (Klor-Con) 40 meq 1X ONCE PO 10/16/19 19:30 10/16/19 19:31 DC 10/16/19 22:13 Hydralazine HCl (Apresoline) 50 mg TID PO 10/17/19 14:00 10/17/19 13:38 Carvedilol (Coreg) 12.5 mg 1X ONCE PO 10/17/19 10:30 10/17/19 10:31 DC 10/17/19 11:00 JAY AJ III DO Oct 17, 2019 15:47
[2019-10-17] MEDS: LABETALOL 20 MG/4 ML DISP.SYRIN. IVP PRN (17:02)
[2019-10-17 19:00] VITALS: BP 157/93
[2019-10-17 23:15] VITALS: BP 123/83
[2019-10-18 03:08] VITALS: BP 157/109
[2019-10-18 07:41] VITALS: BP 144/104
[2019-10-18] MEDS: CYCLOBENZAPRINE 10 MG TABLET. PO SCH (08:34)
[2019-10-18] MEDS: hydroCHLOROthiazide 25 MG TABLET PO SCH (08:35)
[2019-10-18] MEDS: CARVEDILOL 12.5 MG TABLET. PO SCH (08:35)
[2019-10-18] MEDS: PANTOPRAZOLE 40 MG TABLET.DR. PO SCH (08:35)
[2019-10-18] MEDS: amLODIPine BESYLATE 10 MG TABLET PO SCH (08:35)
[2019-10-18] MEDS: hydrALAZINE 25 MG TABLET PO SCH ×2 (08:36→13:53)
[2019-10-18] MEDS: CITALOPRAM 20 MG TABLET. PO SCH (08:36)
[2019-10-18] MEDS ORDERED: POLYETHYLENE GLYCOL 3350 17 GM PACKET. PO SCH (09:00)
[2019-10-18 10:29] VITALS: BP 169/104
--- NOTE | 2019-10-18 12:14 | PDOC ---
[employer] [facility] PROGRESS NOTE Chief Complaint Chief Complaint Hypertensive urgency Hypertensive encephalopathy History of medication nonadherence due to monetary constraints History of angioedema and uvulitis Mild pontine tonsil enlargement, may be reflective of underlying infectious or inflammatory process. Airways are otherwise patent. Plan: appreciate cardiology recommendations. Will discuss further treatment given the lack of response to the current regimen Labetalol We'll start the patient on amlodipine by mouth and HCTZ Monitor neurological status Follow recommendations from GI home planning consultant salesperson DVT prophylaxis with SCD Recommendations based on the clinical course hope to discharge soon once BP is improved History of Present Illness History of Present Illness No acute events reported overnight. Overall the patient feels better but he is quite concerned about his diastolic blood pressure being in the 130s. Reassurance has been provided no chest pain palpitations no signs of encephalopathy were voiced CONCERNS address to the best of my abilities 10/17/2019 - pt seen and examined - pt discussed with RN - GI consulted because of throat pain and dysphagia - medication list consulted and pertinent prescription were prescribed - no acute events over night 10/18/2019 - pt seen and examined - pt discussed with RN - medication list and Rx renewed - no acute events overnight Vitals/I&O Vitals/I&O: Vital Signs Date Time Temp Pulse Resp B/P (MAP) Pulse Ox O2 Delivery O2 Flow Rate FiO2 10/18/19 10:29 97.8 67 16 169/104 (125) 99 Room Air 97.8 I & O 10/17/19 10/17/19 10/18/19 15:00 23:00 07:00 Intake Total 480 ml 800 ml 300 ml Output Total 375 ml Balance 480 ml 800 ml -75 ml Physical Exam General: Alert, No acute distress Heart: Regular rate Abdomen: Normal bowel sounds Extremities: No cyanosis, No edema Skin: No breakdown, No significant lesion Review of Systems Review of Systems: GI: pt denies abdominal pain, NV, and change in BM Neuro: pt denies change in vision, DUMONT, and proprioception Assessment and Plan Assessmemt and Plan No acute events reported overnight. Overall the patient feels better but he is quite concerned about his diastolic blood pressure being in the 130s. Reassurance has been provided no chest pain palpitations no signs of encephalopathy were voiced CONCERNS address to the best of my abilities 10/17/2019 - pt seen and examined - pt discussed with RN - GI consulted because of throat pain and dysphagia - medication list consulted and pertinent prescription were prescribed - no acute events over night 10/18/2019 - pt seen and examined - pt discussed with RN - medication list and Rx renewed - no acute events overnight - cardiac monitoring - discharge today in afternoon pending pt disposition Comment Review of Relevant I have reviewed the following items martín (where applicable) has been applied. Medications: Current Medications Medications (Trade) Dose Ordered Sig/Marquita Route PRN Reason Start Time Stop Time Status Last Admin Dose Admin Hydralazine HCl (Apresoline) 50 mg TID PO 10/17/19 14:00 10/18/19 08:36 Carvedilol (Coreg) 25 mg BIDWMEALS PO 10/17/19 17:00 10/18/19 08:35 JAY AJ III DO Oct 18, 2019 12:14
--- NOTE | 2019-10-18 13:57 | PDOC ---
Subjective: Subjective: Feeling better, going home today. Objective: Objective: No GI concerns per nurse. Vital Signs: Vital Signs Date Time Temp Pulse Resp B/P (MAP) Pulse Ox O2 Delivery O2 Flow Rate FiO2 10/18/19 13:53 67 169/104 10/18/19 10:29 97.8 16 99 Room Air 97.8 PE: GEN: NAD LUNGS: CTAB HEART: RRR ABD: NABS, S/ND/NT NEURO/PSYCH: A & O 3 A/P: HTN, non-compliance Globus - resolved -- DC per primary on PPI, plan for outpt 'scopes. Hemodynamically unstable?: No Is patient in severe pain?: No Is NPO status required?: No VITA BALL Oct 18, 2019 13:56
[2019-10-18] MEDS ORDERED: CARV25TA2 PO (14:21)
[2019-10-18] MEDS ORDERED: AMLO10TA8 PO (14:21)
[2019-10-18] MEDS ORDERED: HYDR-2869 PO (14:22)
[2019-10-18] MEDS ORDERED: HYDR-2145 PO (14:22)
[2019-10-18 14:23] VITALS: BP 197/117
--- NOTE | 2019-10-18 15:51 | NUR ---
Discharge Note: BOB THURSTON [address] [place] [address] Discharge instructions and discharge home medications reviewed with Patient and a copy given. All questions have been answered and understanding verbalized. The following instructions and handouts were given: HTN and cardiac diet Discontinued IV line Patient discharged to home with self care via private vehicle
== END 2019-10-18 15:15 | disposition home or self-care (01) | DRG 305 ==
LOC: ER 21:27 → 2 NORTH 10-14 00:39 → OBSVTOIN 10-14 10:45
PROVIDERS: ADMIT Internal Medicine; ATTEND Internal Medicine
DX: I16.0 Hypertensive urgency (principal); I67.4 Hypertensive encephalopathy; J35.1 Hypertrophy of tonsils; F32.9 Major depressive disorder, single episode, unspecified; I12.9 Hypertensive chronic kidney disease with stage 1 through stage 4 chronic kidney disease, or unspecified chronic kidney disease; N18.9 Chronic kidney disease, unspecified; F45.8 Other somatoform disorders; J45.909 Unspecified asthma, uncomplicated; F40.240 Claustrophobia; M19.90 Unspecified osteoarthritis, unspecified site; G89.29 Other chronic pain; E66.9 Obesity, unspecified; Z68.35 Body mass index [BMI] 35.0-35.9, adult; Z91.14 Patient's other noncompliance with medication regimen; Z91.19 Patient's noncompliance with other medical treatment and regimen; Z79.899 Other long term (current) drug therapy; Z87.891 Personal history of nicotine dependence; Z88.8 Allergy status to other drugs, medicaments and biological substances; Z82.3 Family history of stroke; Z82.49 Family history of ischemic heart disease and other diseases of the circulatory system
CPT/HCPCS: 36415; 70491; 71045; 80048; 80053; 80061; 81001; 84443; 84484; 85007; 85025; 85610; 93005; 96374; 96375; G0378; G0379; J0360; J1200; J1610; J2060; J2930; J3490; J7050; J7613; Q9967; 99291-25; J7030

== ENCOUNTER → 2019-11-11 | Outpatient (CLI) | payer OTHER ==
[2019-10-18 14:23] VITALS: BP 197/117
[~2019-11-11] MED LIST changes: +CARV25TA2 PO; +CHLO25TA2 PO; +CITA40TA5 PO; +CYCL10TA2 PO; +HYDR-2145 PO; +NIFE60TA14 PO; +POTA8TAB PO
--- NOTE | 2019-11-11 10:27 | KCIC ---
MRI Lumbar Spine without contrast History: Low back pain, right leg pain Technique: Multiplanar, multi sequential noncontrast MR imaging was performed of the lumbar spine. Comparison: None Findings: Lumbar vertebral body stature is maintained. Conus terminates near the superior aspect of L2. There is mild to moderate L5-S1 degenerative disc disease. There is no significant marrow edema. AP alignment is within normal limits. L1-L2: This level was not included on the axial images. Neural foramina and spinal canal are adequate. L2-L3: There is mild prominence of posterior epidural fat and buckling of the ligamentum flavum. There is negligible disc osteophyte complex. Neural foramina and spinal canal are adequate. L3-L4: There is mild prominence of posterior epidural fat and buckling of the ligamentum flavum. There is very minimal disc osteophyte complex greater in the inferior left neural foramen. There is mild narrowing of the inferior left neural foramen by disc osteophyte complex. There is left posterior annular tear. Right neural foramen is adequate. Spinal canal is adequate. L4-L5: There is negligible posterior disc osteophyte complex and bulge. Spinal canal is adequate. There is very mild bilateral neural foramina compromise. L5-S1: There is minimal disc osteophyte complex, superimposed minimal bulge/protrusion greater in the left lateral recess contacting the descending left S1 nerve root with minimal posterior displacement. There is mild left lateral recess stenosis. There is minimal facet degenerative change. Right neural foramen is adequate. There is moderate narrowing of the left neural foramen by facet and disc osteophyte complex. Impression: 1. There is mild left lateral recess stenosis L5-S1, disc osteophyte complex and bulge/protrusion contacting the descending left S1 nerve root with mild posterior displacement. There is moderate narrowing of the left L5-S1 neural foramen, very mild neural foramina compromise bilaterally at L4-5 and on the left at L3-4 as described. There is mild to moderate L5-S1 degenerative disc disease. Electronically signed by: John Wheeler MD (11/11/2019 10:24 AM) [id number]
== END | disposition home or self-care (01) ==
LOC: KCIC MRI 08:59
PROVIDERS: ATTEND Orthopaedic Surgery Orthopaedic Surgery of the Spine
DX: M48.07 Spinal stenosis, lumbosacral region (principal); M51.27 Other intervertebral disc displacement, lumbosacral region; M51.37 Other intervertebral disc degeneration, lumbosacral region; M25.78 Osteophyte, vertebrae; M79.604 Pain in right leg
CPT/HCPCS: 72148

== ENCOUNTER 2020-01-27 00:41 | Emergency (ER) | payer SELFPAY ==
[~2020-01-27] VITALS: Ht 185.4 cm; Wt 127.2 kg
--- NOTE | 2020-01-27 00:53 | PHYS DOC ---
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 Patient states that he woke up at about 11:00 and could not swallow because it feels like it is tight and swollen back there. He states that it feels like when he opens his mouth too wide, and feels like he has to throw up. Patient states that he has had this happen to him once before a little less than a year ago but they did not find the cause. Patient does have history of angioedema. [] Review of Systems: Review of Systems: Constitutional: Denies fever or chills. [] Respiratory: Denies cough or shortness of breath. [] Cardiovascular: Denies chest pain or edema. [] GI: Denies abdominal pain, nausea, vomiting, bloody stools or diarrhea. [] Integument: Denies rash. [] Neurologic: Denies headache, focal weakness or sensory changes. [] Full 10 point review of systems has been reviewed and is otherwise negative. Heart Score: Risk Factors: Risk Factors: DM, Current or recent (<one month) smoker, HTN, HLP, family history of CAD, obesity. Risk Scores: Score 0 - 3: 2.5% MACE over next 6 weeks - Discharge Home Score 4 - 6: 20.3% MACE over next 6 weeks - Admit for Clinical Observation Score 7 - 10: 72.7% MACE over next 6 weeks - Early Invasive Strategies Allergies: Allergies: Allergies Coded Allergies Type Severity Reaction Last Updated Verified lisinopril Allergy Severe angioedema/swelling 08/19/16 Yes Physical Exam: PE: Constitutional: Well developed, well nourished, no acute distress, non-toxic appearance. [] HENT: Normocephalic, atraumatic, bilateral external ears normal, oropharynx moist, there is redness and mild swelling noted in the soft palate and around the uvula. [] Eyes: PERRLA, EOMI, conjunctiva normal, no discharge. [] Neck: Normal range of motion, no tenderness, supple, no stridor. [] Cardiovascular: Regular rate and rhythm [] Lungs & Thorax: Bilateral breath sounds clear to auscultation [] Abdomen: Bowel sounds normal, soft, no tenderness, no masses, no pulsatile masses. [] Skin: Warm, dry, no erythema, no rash. [] Extremities: No tenderness, no cyanosis, no clubbing, ROM intact, no edema. [] Neurologic: Alert and oriented X 3, no focal deficits noted. [] EKG: EKG: [] Radiology/Procedures: Radiology/Procedures: [] Course & Med Decision Making: Course & Med Decision Making Pertinent Labs and Imaging studies reviewed. (See chart for details) [] Dragon Disclaimer: Dragon Disclaimer: This electronic medical record was generated, in whole or in part, using a voice recognition dictation system. Departure Departure Impression: Primary Impression: Odynophagia Disposition: 01 HOME, SELF-CARE Condition: STABLE Referrals: UNKNOWN PCP NAME (PCP) Patient Instructions: Angioedema GURWINDER SINGLETON Jr. DO January 27, 2020 00:53
[2020-01-27 01:01] LABS: BASO % 1 % (0-3); EOS # 0.1 x10^3/uL (0.0-0.7); EOS % 2 % (0-3); HEMATOCRIT 42.7 % (39.0-53.0); HEMOGLOBIN 14.1 g/dL (13.0-17.5); LYMPH # 2.7 x10^3/uL (1.0-4.8); LYMPH % 29 % (24-48); MEAN CORPUSCULAR HEMOGLOBIN 28 pg (25-35); MEAN CORPUSCULAR HGB CONC 33 g/dL (31-37); MEAN CORPUSCULAR VOLUME 85 fL (79-100); MONO % 10 % (0-9); NEUT # 5.6 x10^3/uL (1.8-7.7); NEUT % 59 % (31-73); PLATELET COUNT 193 x10^3/uL (140-400); RED BLOOD COUNT 5.04 x10^6/uL (4.30-5.70); WHITE BLOOD COUNT 9.4 x10^3/uL (4.0-11.0)
[2020-01-27 01:18] LABS: CALCIUM 8.3 mg/dL (8.5-10.1); CREATININE 1.5 mg/dL (0.7-1.3); GFR 60.4; POTASSIUM 3.2 mmol/L (3.5-5.1)
[2020-01-27 01:24] LABS: ALBUMIN 3.6 g/dL (3.4-5.0); TOTAL BILIRUBIN 0.5 mg/dL (0.2-1.0); TOTAL PROTEIN 7.2 g/dL (6.4-8.2)
[2020-01-27] MEDS ORDERED: ONDANSETRON PF 4 MG/2 ML VIAL. IVP ONE (01:30)
[2020-01-27] MEDS ORDERED: diphenhydrAMINE 50 MG/ML VIAL IV ONE (01:30)
[2020-01-27] MEDS ORDERED: IV NORMAL SALINE 1000ML BAG 1,000 ML IV SCH (01:30)
[2020-01-27] MEDS ORDERED: methylPREDNISolone SOD SUCC PF 125 MG/2 ML VIAL. IV ONE (01:30)
[2020-01-27] MEDS ORDERED: FAMOTIDINE 20 MG/2 ML VIAL IVP ONE (01:30)
[2020-01-27 02:30] VITALS: BP 176/108
[2020-01-27] MEDS ORDERED: hydrALAZINE 20 MG/ML VIAL. IVP ONE (02:30)
[2020-01-27] MEDS ORDERED: POTASSIUM CHLORIDE 20 MEQ TABLET.ER. PO ONE (02:30)
== END 2020-01-27 02:40 | disposition home or self-care (01) ==
LOC: ER 00:41
DX: R13.10 Dysphagia, unspecified (principal); I10 Essential (primary) hypertension; Z87.891 Personal history of nicotine dependence; F10.20 Alcohol dependence, uncomplicated; Y90.9 Presence of alcohol in blood, level not specified; Z88.8 Allergy status to other drugs, medicaments and biological substances
CPT/HCPCS: 36415; 80053; 85025; 96374; 96375; 99285; J0360; J1200; J2930; J3490; J7030

== ENCOUNTER → 2020-02-27 | Outpatient (CLI) | payer OTHER ==
[~2020-02-27] MED LIST changes: +0.9 % SODIUM CHLORIDE 10 ML DISP.SYRIN. ID ONE; +CONTRAST GIVEN. MC PRN; +GADOTERATE 5 MMOL/10ML VIAL. INT ART ONE; +IOHEXOL 300 MG/ML 50 ML VIAL. INT ART ONE; +LIDOCAINE 1% Multi-Dose 20 ML VIAL. ID ONE
--- NOTE | 2020-02-27 14:16 | KCIC ---
EXAM: Fluoroscopically guided right hip joint injection for MRI arthrogram INDICATION: Right hip pain, lower back pain. COMPARISON: None TECHNIQUE/FINDINGS: The purpose of the procedure and risks including infection, bleeding, contrast reaction, and pain were discussed with the patient. Informed consent was obtained. A timeout was performed. After obtaining consent, the patient was placed supine on the fluoroscopy table with the right hip internally rotated. The skin overlying the right hip joint was marked, sterilized and draped. Superficial and deep soft tissues were anesthetized with 1% lidocaine. Utilizing fluoroscopic guidance, a 22-gauge 3.5" needle was advanced into the joint. Intraarticular position was confirmed with injection of a small amount of iodinated contrast. Subsequently, 15 mL of a solution containing the following items was instilled into the joint: 10 mL of 1% lidocaine, 5 mL of sterile saline, 5 mL of non-ionic iodinated contrast, and 0.1 mL of gadolinium. At the end of the procedure, the needle was removed. The overlying skin was cleansed and covered with a bandaid. The patient tolerated the procedure well and was free of immediate complications. The patient was transferred for the MR portion of the exam in stable condition. Total fluoroscopic time: 51 seconds. One image acquired. IMPRESSION: Technically successful right hip joint injection for the purposes of MR arthrogram. Electronically signed by: Anca Lambert MD (02/27/2020 2:13 PM) [id number]
--- NOTE | 2020-02-27 16:36 | KCIC ---
EXAMINATION: MRI right hip arthrogram INDICATIONS: Right hip and lower back pain. TECHNIQUE: Multiplanar multisequence MRI of the right hip after intra-articular injection of contrast, performed separately. COMPARISON: None FINDINGS: BONES AND CARTILAGE: Marrow signal is normal. There is no acute fracture. Articular cartilage is mildly heterogeneous suspicious for scattered mild cartilage loss. No deep or full-thickness defect. Small osseous bump at the femoral head neck junction anteriorly. Alpha angle is 55 degrees. No acetabular over coverage or retroversion. LABRUM: The tip of the superior labrum is mildly irregular, which may represent fraying, however there is no discrete contrast filled tear. MUSCLES, TENDONS, AND BURSAE: Rectus femoris, gluteal, iliopsoas, adductor, and hamstrings tendons are intact. Trace peritrochanteric edema. Muscles are normal. OTHER: Articular contrast distends the joint. No intra-articular body. Ligament of teres is intact. IMPRESSION: 1. Mild cartilage loss without high-grade or full-thickness defect. 2. Fraying of the superior labrum without discrete contrast-filled tear. Electronically signed by: Anca Lambert MD (02/27/2020 4:32 PM) [id number]
== END ==
LOC: KCIC 12:33
PROVIDERS: ATTEND Physical Medicine & Rehabilitation Sports Medicine
DX: M16.11 Unilateral primary osteoarthritis, right hip (principal); M25.551 Pain in right hip
CPT/HCPCS: 27093; 73722; 77002; A9575; J3490; Q9967; 73525

== ENCOUNTER 2021-08-31 02:37 | Emergency (ER) | payer SELFPAY ==
[~2021-08-31] VITALS: Ht 185.4 cm; Wt 109.0 kg
[~2021-08-31 02:37] MED LIST changes: -0.9 % SODIUM CHLORIDE 10 ML DISP.SYRIN. ID ONE; +AMLO-187 PO; -AMLO10TA8 PO; -CITA40TA5 PO; +CITA40TA6 PO; -CONTRAST GIVEN. MC PRN; +CYCL10TA19 PO; -CYCL10TA2 PO; -GADOTERATE 5 MMOL/10ML VIAL. INT ART ONE; -IOHEXOL 300 MG/ML 50 ML VIAL. INT ART ONE; -LIDOCAINE 1% Multi-Dose 20 ML VIAL. ID ONE; -LISI1TAB23 PO; +LISI1TAB35 PO; -POTA8TAB PO; +POTA8TAB57 PO
--- NOTE | 2021-08-31 02:47 | PHYS DOC ---
Past Medical History Past Medical History: Hypertension Additional Past Medical Histor: Hx of angioedema due to lisinopril Past Surgical History: No Surgical History Smoking Status: Former Smoker Alcohol Use: Heavy Drug Use: None General Adult EDM: Chief Complaint: HEADACHE HPI: HPI: Patient is a 50 year old male who presents with headache, which has been present for the past 24 hours. He has had previous similar headaches. The pain is been progressive, not sudden in onset. He denies vision loss, aura, dizziness, vertigo. He denies neck pain or stiffness. He reports nausea without vomiting. He denies syncope or near syncope. He denies chest pain, dyspnea, abdominal pain, numbness, tingling, motor weakness. He has chronic, severe hypertension. He has been off of all of his antihypertensives for over a year. He has not attempted to seek care or follow-up with a primary care physician. He had previously sought treatment for his hypertension at [facility]. He also admits to feeling depressed and sad because of family situations. He denies SI or HI symptoms. He requested to speak with a mental health counselor. He came in [facility] because he did not want to be alone on [place]. He has not taken anything for this headache yet. The patient had been admitted to this hospital in 2020 hypertensive encephalopathy, with significant uncontrolled hypertension. He had documented history of renal insufficiency at that time, with a creatinine of 1.7. The patient reports that he was unaware of this being an issue, that was discussed in his consult notes. The patient had been prescribed 4 different antihypertensive medications for discharge, and when I asked him about this, he reports that he is not sure ever even filled or took these medications. He did not fill or take the prescribed a ntidepressant either. Review of Systems: Review of Systems: Constitutional: Denies fever or chills. [] Eyes: Denies change in visual acuity. Denies vision loss or visual aura. HENT: Denies nasal congestion or sore throat. [] Respiratory: Denies cough or shortness of breath. [] Cardiovascular: Denies chest pain or edema. [] GI: Denies abdominal pain or vomiting. Does report mild nausea. Musculoskeletal: Denies back pain or joint pain. [] Integument: Denies rash. [] Neurologic: Reports diffuse headache. Denies numbness, tingling, motor weakness. Denies syncope or near syncope. Denies dizziness or vertigo symptoms. Endocrine: Denies polyuria or polydipsia. [] Lymphatic: Denies swollen glands. [] Psychiatric: Depression symptoms reported. Denies SI or HI. [] Heart Score: C/O Chest Pain: No Risk Factors: Risk Factors: DM, Current or recent (<one month) smoker, HTN, HLP, family history of CAD, obesity. Risk Scores: Score 0 - 3: 2.5% MACE over next 6 weeks - Discharge Home Score 4 - 6: 20.3% MACE over next 6 weeks - Admit for Clinical Observation Score 7 - 10: 72.7% MACE over next 6 weeks - Early Invasive Strategies Allergies: Allergies: Allergies Coded Allergies Type Severity Reaction Last Updated Verified lisinopril Allergy Severe angioedema/swelling 08/19/16 Yes Physical Exam: PE: Constitutional: Well developed, well nourished, no acute distress, non-toxic appearance. [] HENT: Normocephalic, atraumatic, oropharynx is patent and clear, mucous membranes are moist. TMs are clear bilaterally. Eyes: PERRL, EOMI, conjunctiva normal, no discharge. Sclera are clear and anicteric, no conjunctival injection. Neck: Normal range of motion, no tenderness, supple, no stridor. Trachea midline. No JVD. No meningismus. Cardiovascular:Heart rate regular rhythm, +2 radial and +2 posterior tibial pulses bilaterally. Lungs & Thorax: Bilateral breath sounds clear to auscultation [] Abdomen: Abdomen is soft, nondistended, nontender to palpation. Skin: Warm, dry, no erythema, no rash. [] Back: No tenderness, no CVA tenderness. [] Extremities: No tenderness, no cyanosis, no clubbing, ROM intact, no edema. [] Neurologic: He is awake, alert, oriented x3. Gait is steady, nonantalgic, no ataxia. 5 out of 5 motor strength all 4 extremities. Cranial nerves II through XII grossly intact. No pronator drift or dysmetria. No limb ataxia. Sensation is grossly intact. Psychologic: Affect is flat, he is calm, cooperative and pleasant. He denies SI or HI. [] EKG: EKG: [] Radiology/Procedures: Radiology/Procedures: IMAGING REPORT Signed PATIENT: BOB THURSTON ACCOUNT: [id number] : 1970 LOCATION: ER AGE: 50 SEX: M EXAM STATUS: REG ER ORD. PHYSICIAN: KATIANA DIAZ DO REASON: headache, HTN PROCEDURE: CT HEAD WO CONTRAST EXAM: CT HEAD WITHOUT CONTRAST. HISTORY: Headache, hypertension. TECHNIQUE: Computed tomography of the head was performed without intravenous contrast. One or more of the following individualized dose reduction techniques were utilized for this examination: 1. Automated exposure control. 2. Adjustment of the mA and/or kV according to patient size. 3. Use of iterative reconstruction technique. COMPARISON: None. FINDINGS: There is no intracranial hemorrhage. Hypoattenuation within the periventricular white matter indicates mild chronic microangiopathic change. The ventricles are normal in size and position. The visualized paranasal sinuses appear clear. The orbits are unremarkable. The temporal bones are unremarkable. The calvarium reveals no suspicious lesions. IMPRESSION: 1. No acute intracranial findings. Mild chronic microangiopathic white matter change. Electronically signed by: Bri Mendez MD (08/31/2021 4:13 AM) [facility] DICTATED and SIGNED BY: BREA MENDEZ MD DATE: 08/31/21 [id number] 0 Course & Med Decision Making: Course & Med Decision Making Pertinent Labs and Imaging studies reviewed. (See chart for details) Patient is given IV fluids, IV Zofran, IV Toradol, p.o. Tylenol, p.o. potassium replacement. IV Lopressor and p.o. clonidine are given. There has been at least modest improvement of his blood pressure, systolic persistently under 200, diastolic improved. He is resting very comfortably, he is ambulatory with a steady gait, has not been complaining of any further nausea, no vomiting. He has been eating food without difficulty. He still remains hypertensive, but he reports improvement of headache. He does have some renal insufficiency, and I treated this lab, and he has had manifestations of renal insufficiency for many years based on previous results here. He reports that he was not aware of this issue. I explained that he must follow-up with a primary care physician for further evaluation and treatment and management of his chronically poorly controlled hypertension. He does manifest some evidence of some endorgan damage, but this does not appear to be acute today, though is worsening. He reports that he will have access to going to [facility] for primary care services as well as mental health services. He was seen by the PAT team, he signed an agreement for safety plan. I explained that I will give him medications for 1 month. Nate Disclaimer: Nate Disclaimer: This electronic medical record was generated, in whole or in part, using a voice recognition dictation system. Departure Departure Impression: Primary Impression: Poorly-controlled hypertension Additional Impressions: Headache Acute on chronic renal insufficiency Disposition: HOME / SELF CARE / HOMELESS Condition: STABLE Referrals: NO PCP (PCP) Patient Instructions: Alcohol and Headaches, Chronic Renal Insufficiency, Depression, Adult, General Headache Without Cause, Hypertension Additional Instructions: Please take the prescribed medication as directed. Please try to avoid excess use of alcohol, this will worsen headache symptoms. Please stay hydrated, with clear, nonalcoholic beverages. You may try to sip a little caffeine to help with headaches. You may take Tylenol for pain. Please follow-up with the resources provided to establish care with a primary care physician. You will need to have your kidney function monitored closely. If you develop any chest pain, shortness of breath, uncontrolled vomiting, focal weakness, fever 100.4 or higher or for any other concerns, return to the ER. Scripts Hydrochlorothiazide (HYDROCHLOROTHIAZIDE TABLET ) 25 Mg Tablet 25 MG PO DAILY for DIURETIC, #30 TAB 0 Refills Prov: KATIANA DIAZ DO 08/31/21 Metoprolol Tartrate (METOPROLOL TARTRATE) 25 Mg Tablet 1 TAB PO BID, #60 TAB 1 Refill Prov: KATIANA DIAZ DO 08/31/21 KATIANA DIAZ DO Aug 31, 2021 02:47
[2021-08-31] MEDS ORDERED: METOPROLOL IV PUSH 5 MG/5 ML VIAL. IVP ONE ×2 (03:15→05:45)
[2021-08-31] MEDS ORDERED: KETOROLAC 30 MG/ML VIAL. IVP ONE (03:15)
[2021-08-31] MEDS ORDERED: ONDANSETRON PF 4 MG/2 ML VIAL. IVP ONE (03:15)
[2021-08-31 03:26] LABS: BASO % 1 % (0-3); EOS % 1 % (0-3); HEMATOCRIT 39.4 % (39.0-53.0); HEMOGLOBIN 13.2 g/dL (13.0-17.5); LYMPH # 0.3 x10^3/uL (1.0-4.8); LYMPH % 5 % (24-48); MEAN CORPUSCULAR HEMOGLOBIN 29 pg (25-35); MEAN CORPUSCULAR HGB CONC 34 g/dL (31-37); MEAN CORPUSCULAR VOLUME 85 fL (79-100); MONO # 1.4 x10^3/uL (0.0-1.1); MONO % 20 % (0-9); NEUT # 5.2 x10^3/uL (1.8-7.7); NEUT % 74 % (31-73); PLATELET COUNT 143 x10^3/uL (140-400); RED BLOOD COUNT 4.64 x10^6/uL (4.30-5.70); RED CELL DISTRIBUTION WIDTH 15.3 % (11.5-14.5); WHITE BLOOD COUNT 7.1 x10^3/uL (4.0-11.0)
[2021-08-31 03:36] LABS: CALCIUM 7.8 mg/dL (8.5-10.1); CREATININE 1.9 mg/dL (0.7-1.3); GFR 45.8; POTASSIUM 3.2 mmol/L (3.5-5.1)
[2021-08-31 03:53] LABS: % EOS 1 % (0-5); % LYMPHS 3 % (24-48); % MONOS 13 % (0-10); % SEGS 83 % (35-66); PLT ESTIMATE ADEQUATE (ADEQUATE)
--- NOTE | 2021-08-31 04:15 | RAD ---
EXAM: CT HEAD WITHOUT CONTRAST. HISTORY: Headache, hypertension. TECHNIQUE: Computed tomography of the head was performed without intravenous contrast. One or more of the following individualized dose reduction techniques were utilized for this examination: 1. Automated exposure control. 2. Adjustment of the mA and/or kV according to patient size. 3. Use of iterative reconstruction technique. COMPARISON: None. FINDINGS: There is no intracranial hemorrhage. Hypoattenuation within the periventricular white matte r indicates mild chronic microangiopathic change. The ventricles are normal in size and position. The visualized paranasal sinuses appear clear. The orbits are unremarkable. The temporal bones are un remarkable. The calvarium reveals no suspicious lesions. IMPRESSION: 1. No acute intracranial findings. Mild chronic microangiopathic white matter change. Electronically signed by: Bri Mendez MD (08/31/2021 4:13 AM) [facility]
[2021-08-31] MEDS ORDERED: POTASSIUM CHLORIDE 20 MEQ TABLET.ER. PO ONE (04:45)
[2021-08-31] MEDS ORDERED: ACETAMINOPHEN 500 MG TABLET PO ONE (05:45)
[2021-08-31] MEDS ORDERED: cloNIDine HCL 0.1 MG TABLET PO ONE (06:45)
[2021-08-31 07:21] VITALS: BP 167/111
[2021-08-31] MEDS ORDERED: METO25TA4 PO (07:37)
[2021-08-31] MEDS ORDERED: HYDR-2145 PO (07:47)
== END 2021-08-31 07:59 | disposition home or self-care (01) ==
LOC: ER 02:37
DX: I10 Essential (primary) hypertension (principal); I12.9 Hypertensive chronic kidney disease with stage 1 through stage 4 chronic kidney disease, or unspecified chronic kidney disease; N18.9 Chronic kidney disease, unspecified; R51.9 Headache, unspecified; Z87.891 Personal history of nicotine dependence; Z88.6 Allergy status to analgesic agent; F10.20 Alcohol dependence, uncomplicated; Y90.9 Presence of alcohol in blood, level not specified
CPT/HCPCS: 36415; 70450; 80048; 85007; 85025; 96374; 96375; 96376; 99285; J1885; J2405; J3490

== ENCOUNTER 2021-11-27 10:27 | Inpatient (IN) | payer OTHER ==
[~2021-11-27] VITALS: Ht 185.4 cm; Wt 107.1 kg
[2021-11-27] VITALS (10 sets, daily range): BP systolic 143–173; BP diastolic 77–104
[~2021-11-27 10:27] MED LIST changes: +METO25TA4 PO
--- NOTE | 2021-11-27 10:53 | PHYS DOC ---
Past Medical History Past Medical History: Hypertension Additional Past Medical Histor: Hx of angioedema due to lisinopril Past Surgical History: No Surgical History Smoking Status: Former Smoker Alcohol Use: Heavy Drug Use: None General Adult EDM: Chief Complaint: HYPERTENSION HPI: HPI: Patient is a 51-year-old male who presents to the emergency department stating his primary care physician at [facility] told him to come to the emergency department because of his high blood pressure that he presented with today. Patient states he has had intermittent shortness of breath, dizziness, high blood pressure, some confusion, intermittent nausea, and has seen blood in his urine when he wakes up in the morning for the past 3 weeks. Patient denies chest pain, chest palpitations, chest or nasal congestion, denies headaches, denies abdominal pain, vomiting or diarrhea, denies recent fever or chills, denies other physical complaints or physical concerns. Patient states he is supposed to take medicine for high blood pressure however does not like how his blood pressure medication makes him feel, states he did have a allergic reaction to lisinopril some years ago. Review of Systems: Review of Systems: 14 body systems of review of systems have been reviewed. See HPI for pertinent positives and negative responses, otherwise all other systems are negative, nonpertinent or noncontributory. Constitutional: Negative except as outlined in HPI above. Skin: Negative except as outlined in HPI above. Eyes: Negative except as outlined in HPI above. HENT: Negative except as outlined in HPI above. Respiratory: Negative except as outlined in HPI above. Cardiovascular: Negative except as outlined in HPI above. GI: Negative except as outlined in HPI above. : Negative except as outlined in HPI above. Musculoskeletal: Negative except as outlined in HPI above. Integument: Negative except as outlined in HPI above. Neurologic: Negative except as outlined in HPI above. Endocrine: Negative except as outlined in HPI above. Lymphatic: Negative except as outlined in HPI above. Psychiatric: Negative except as outlined in HPI above. Heart Score: C/O Chest Pain: No Risk Factors: Risk Factors: DM, Current or recent (<one month) smoker, HTN, HLP, family history of CAD, obesity. Risk Scores: Score 0 - 3: 2.5% MACE over next 6 weeks - Discharge Home Score 4 - 6: 20.3% MACE over next 6 weeks - Admit for Clinical Observation Score 7 - 10: 72.7% MACE over next 6 weeks - Early Invasive Strategies Allergies: Allergies: Allergies Coded Allergies Type Severity Reaction Last Updated Verified lisinopril Allergy Severe angioedema/swelling 08/19/16 Yes Physical Exam: PE: Constitutional: Well developed, well nourished, no acute distress, non-toxic appearance. 51-year-old male in no apparent distress. HENT: Normocephalic, atraumatic. Eyes: Conjunctiva normal, no discharge. Neck: Normal range of motion, no stridor. Cardiovascular: No cyanosis appreciated, distal cap refill less than 2 seconds. Regular rate and rhythm, heart sounds S1-S2 to auscultation. Lungs & Thorax: Patient is in no respiratory distress, no audible adventitious lung sounds appreciated. Normal work of breathing, lung sounds clear to auscultation all lung miller. Abdomen: Nontender, no abnormalities noted. Skin: Warm, dry, no erythema, no rash. Back: No tenderness, no deformities. Extremities: No tenderness, no cyanosis, no clubbing, ROM intact, no edema. Neurologic: Alert and oriented X 3, normal motor function, normal sensory function, no focal deficits noted. Psychologic: Affect normal, judgement normal, mood normal. Current Patient Data: Labs: Laboratory Tests Test 11/27/21 11:03 11/27/21 13:00 White Blood Count 8.2 x10^3/uL Red Blood Count 4.76 x10^6/uL Hemoglobin 13.0 g/dL Hematocrit 40.2 % Mean Corpuscular Volume 85 fL Mean Corpuscular Hemoglobin 27 pg Mean Corpuscular Hemoglobin Concent 32 g/dL Red Cell Distribution Width 15.9 % Platelet Count 140 x10^3/uL Neutrophils (%) (Auto) 71 % Lymphocytes (%) (Auto) 16 % Monocytes (%) (Auto) 10 % Eosinophils (%) (Auto) 2 % Basophils (%) (Auto) 1 % Neutrophils # (Auto) 5.8 x10^3/uL Lymphocytes # (Auto) 1.3 x10^3/uL Monocytes # (Auto) 0.8 x10^3/uL Eosinophils # (Auto) 0.2 x10^3/uL Basophils # (Auto) 0.1 x10^3/uL Sodium Level 145 mmol/L Potassium Level 3.2 mmol/L Chloride Level 105 mmol/L Carbon Dioxide Level 29 mmol/L Anion Gap 11 Blood Urea Nitrogen 28 mg/dL Creatinine 3.7 mg/dL Estimated GFR (Cockcroft-Gault) 21.1 BUN/Creatinine Ratio 8 Glucose Level 101 mg/dL Calcium Level 8.2 mg/dL Magnesium Level 2.0 mg/dL Total Bilirubin 0.9 mg/dL Aspartate Amino Transf (AST/SGOT) 14 U/L Alanine Aminotransferase (ALT/SGPT) 22 U/L Alkaline Phosphatase 55 U/L Troponin I High Sensitivity 49 ng/L IM-Dwh-B-Type Natriuretic Peptide 2947 pg/mL Total Protein 6.6 g/dL Albumin 3.5 g/dL Albumin/Globulin Ratio 1.1 Urine Collection Type Unknown Urine Color (Auto) Light yellow Urine Turbidity Clear Urine pH (Auto) 6.5 Urine Specific [place] 1.019 Urine Protein (Auto) 300 mg/dL Urine Glucose (Auto)(UA) Negative mg/dL Urine Ketones (Auto) Negative mg/dL Urine Blood (Auto) Moderate Urine Nitrite Negative Urine Bilirubin (Auto) Negative Urine Urobilinogen (Auto) Normal mg/dL Urine Leukocyte Esterase (Auto) Negative Urine RBC 3-5 /HPF Urine WBC 1-4 /HPF Urine Squamous Epithelial Cells Mod /LPF Urine Bacteria Few /HPF Urine Hyaline Casts Occasional /HPF Current Medications Medications (Trade) Dose Ordered Sig/Marquita Route PRN Reason Start Time Stop Time Status Last Admin Dose Admin Labetalol HCl (Normodyne Iv Push) 20 mg 1X ONCE IVP 11/27/21 12:00 11/27/21 12:01 DC 11/27/21 11:54 Labetalol HCl (Normodyne Iv Push) 20 mg 1X ONCE IVP 11/27/21 12:45 11/27/21 12:47 DC 11/27/21 12:59 Labetalol HCl (Normodyne Iv Push) 20 mg 1X ONCE IVP 11/27/21 13:45 11/27/21 13:46 DC 11/27/21 13:59 Potassium Chloride (Klor-Con) 40 meq 1X ONCE PO 11/27/21 14:30 11/27/21 14:31 DC EKG: EKG: EKG performed at 1056 per ED nursing staff shows a normal sinus rhythm, heart rate 74 bpm, MD interval 0.170, QTc interval 0.460, no acute STEMI, no ACS, there is inverted T waves in leads V5 and V6 suggestive of ischemia. Radiology/Procedures: Radiology/Procedures: REASON: Hypertensive crisis PROCEDURE: CHEST AP ONLY Single view of the chest. 11/27/2021 11:54 AM Indication: Reason: Hypertensive crisis Comparison: Chest radiograph October 14, 2019 Findings: Heart appears enlarged. No pneumothorax, pleural effusion, or focal infiltrate is seen. No acute osseous changes are identified. IMPRESSION: 1.Cardiomegaly 2. No other acute cardiopulmonary process is identified Electronically signed by: Kenn Lorenzo MD (11/27/2021 12:13 PM) [id number] REASON: Hypertensive crisis PROCEDURE: CT HEAD WO CONTRAST CT Head without contrast 11/27/2021 12:03 PM Indication: Hypertensive crisis: Comparison: CT head without contrast August 31, 2021 Findings: No intracranial hemorrhage is seen. No evidence of acute territorial infarct is seen. Note that CT is limited in sensitivity for acute ischemia. There is patchy periventricular and deep white matter hypoattenuation which is nonspecific, but most commonly relates to chronic small vessel disease. The appearance is similar prior study. Area of low density in the pavan is also seen. Small chronic infarct is possible. This is also unchanged. No abnormal extra axial fluid collection is identified. No mass effect or midline shift is seen. No acute osseous abnormalities are seen. Impression: 1. No acute intracranial process identified 2. Prominent changes of chronic small vessel disease for patient age, as described CT DOSING PQRS STATEMENT: One or more of the following individualized dose reduction techniques were utilized for this examination: 1. Automated exposure control 2. Adjustment of the mA and/or kV according to patient size 3. Use of iterative reconstruction technique Electronically signed by: Kenn Lorenzo MD (11/27/2021 12:20 PM) [id number] Course & Med Decision Making: Course & Med Decision Making Pertinent Labs and Imaging studies reviewed. (See chart for details) 51-year-old male, vital signs reviewed, presents emergency department concerning hypertensive emergency from primary care office visit today. Patient's physical examination is unremarkable. Patient does present with blood pressure of 250/154, this was done on the right upper extremity brachial, I repeated blood pressure with left upper extremity brachial with reading of 267/151. Patient does complain of hematuria, will order urinalysis assay, EKG, troponin I, BNP, CBC, CMP, CT head without contrast related to patient's complaint of periodical confusion. Discussed hypertensive emergency presentation with ED attending physician Dr. Prieto, Dr. Prieto recommended labetalol 20 mg IV. And monitor blood pressures, laboratory engineer, O2 saturation and temperature monitoring. Patient's blood pressure did reduce to 230/146 right brachial, discussed with Dr. Prieto who recommended repeat labetalol dosing. Potassium 3.2, will give 40 mill equivalents p.o. potassium Patient's blood pressure did reduce to 232/137 right brachial, discussed with Dr. Prieto who recommended a third dose of 20 mg lab[address] IV. Patient's CT head is unremarkable for acute process, patient labs do show evidence of endorgan damage, hematuria without other concerns, patient's creatinine 3.7, BNP 2947, the patient's troponin is nonconcerning at 49. The patient does not have chest pain or chest discomfort. Discussed with patient recommended admission to the hospital for hypertensive emergency with endorgan damage. Patient is amenable to ED admission planning. Called and discussed patient presentation and ED work-up with inpatient management physician Dr. Mejia who agrees patient presentation warrants admission to the ICU for hypertensive emergency with acute renal failure, Dr. Mejia recommended Cardene drip, requested consult for nephrology and cardiology. Patient is currently awaiting ICU bed assignment from housekeeper manager. Nate Disclaimer: Nate Disclaimer: This electronic medical record was generated, in whole or in part, using a voice recognition dictation system. Departure Departure Impression: Primary Impression: Hypertensive emergency Additional Impressions: Acute renal failure Qualified Codes: N17.9 - Acute kidney failure, unspecified Abnormal EKG Disposition: ADMITTED INPATIENT Admitting Physician: HIMS (Admit to Dr. Mejia, ICU, consult nephrology, consult cardiology.) Condition: GUARDED Referrals: NO PCP (PCP) VIKAS SKAGGS APRN Nov 27, 2021 10:53
[2021-11-27 11:49] LABS: BASO # 0.1 x10^3/uL (0.0-0.2); BASO % 1 % (0-3); EOS # 0.2 x10^3/uL (0.0-0.7); EOS % 2 % (0-3); HEMATOCRIT 40.2 % (39.0-53.0); LYMPH # 1.3 x10^3/uL (1.0-4.8); LYMPH % 16 % (24-48); MEAN CORPUSCULAR HEMOGLOBIN 27 pg (25-35); MEAN CORPUSCULAR HGB CONC 32 g/dL (31-37); MEAN CORPUSCULAR VOLUME 85 fL (79-100); MONO # 0.8 x10^3/uL (0.0-1.1); MONO % 10 % (0-9); NEUT # 5.8 x10^3/uL (1.8-7.7); NEUT % 71 % (31-73); PLATELET COUNT 140 x10^3/uL (140-400); RED BLOOD COUNT 4.76 x10^6/uL (4.30-5.70); RED CELL DISTRIBUTION WIDTH 15.9 % (11.5-14.5); WHITE BLOOD COUNT 8.2 x10^3/uL (4.0-11.0)
[2021-11-27 12:00] LABS: CALCIUM 8.2 mg/dL (8.5-10.1); CREATININE 3.7 mg/dL (0.7-1.3); GFR 21.1; POTASSIUM 3.2 mmol/L (3.5-5.1)
[2021-11-27] MEDS ORDERED: LABETALOL 20 MG/4 ML DISP.SYRIN. IVP ONE ×3 (12:00→13:45)
[2021-11-27 12:06] LABS: ALBUMIN 3.5 g/dL (3.4-5.0); ALBUMIN/GLOBULIN RATIO 1.1 (1.0-1.7); TOTAL BILIRUBIN 0.9 mg/dL (0.2-1.0); TOTAL PROTEIN 6.6 g/dL (6.4-8.2)
--- NOTE | 2021-11-27 12:15 | RAD ---
Single view of the chest. 11/27/2021 11:54 AM Indication: Reason: Hypertensive crisis Comparison: Chest radiograph October 14, 2019 Findings: Heart appears enlarged. No pneumothorax, pleural effusion, or focal infiltrate is seen. No acute osseous changes are identified. IMPRESSION: 1.Cardiomegaly 2. No other acute cardiopulmonary process is identified Electronically signed by: Kenn Lorenzo MD (11/27/2021 12:13 PM) [id number]
--- NOTE | 2021-11-27 12:22 | RAD ---
CT Head without contrast 11/27/2021 12:03 PM Indication: Hypertensive crisis: Comparison: CT head without contrast August 31, 2021 Findings: No intracranial hemorrhage is seen. No evidence of acute territorial infarct is seen. Note that CT is limited in sensitivity for acute ischemia. There is patchy periventricular and deep whi te matter hypoattenuation which is nonspecific, but most commonly relates to chronic small vessel dis ease. The appearance is similar prior study. Area of low density in the pavan is also seen. Small wet mixer katerin infarct is possible. This is also unchanged. No abnormal extra axial fluid collection is identifi ed. No mass effect or midline shift is seen. No acute osseous abnormalities are seen. Impression: 1. No acute intracranial process identified 2. Prominent changes of chronic small vessel disease for patient age, as described CT DOSING PQRS STATEMENT: One or more of the following individualized dose reduction techniques were utilized for this examinat ion: 1. Automated exposure control 2. Adjustment of the mA and/or kV according to patient size 3. Use of iterative reconstruction technique Electronically signed by: Kenn Lorenzo MD (11/27/2021 12:20 PM) [id number]
[2021-11-27 13:18] LABS: BACTERIA,URINE FEW /HPF (0-FEW)
[2021-11-27 13:19] LABS: HYALINE CASTS, URINE OCCASIONAL /HPF
[2021-11-27] MEDS ORDERED: POTASSIUM CHLORIDE 20 MEQ TABLET.ER. PO ONE (14:30)
[2021-11-27] MEDS ORDERED: 0.9 % SODIUM CHLORIDE 10 ML DISP.SYRIN. IV PRN (14:45)
--- NOTE | 2021-11-27 14:56 | PDOC1 ---
History and Physical Date of Admission Date of Admission DATE: 11/27/21 TIME: 14:50 Identification/Chief Complaint Chief Complaint Shortness of breath Source Source: Patient History of Present Illness History of Present Illness Mr Ahumada is a 51-year-old male with PMHx depression, HTN who presents to the emergency department at the behest of his [place] [facility] [place] to elevated blood pressure. Over the past month he has noted shortness of breath, dizziness, and i ntermittent mental fogginess as well as upset stomach that has been progressive. He also notes some lower extremity swelling in his ankles abdominal fullness and wheezing. He does have a as needed albuterol inhaler and has tried to stop smoking is occasional cigar with no good effect and improvement in shortness of breath. He has seen blood in his urine when he wakes up in the morning for the past 3 weeks. Patient denies chest pain, chest palpitations, chest or nasal congestion, denies headaches, denies abdominal pain, vomiting or diarrhea, denies recent fever or chills. No travel or sick contacts. Previously had angioedema due to lisinopril. He notes 5 years ago he was on 3 other blood pressure medications but he vomited them up daily though he was clementina najera at the time. He was under a lot of stress back then as he was undergoing marital separation. 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 He has a 12-year-old daughter he shares custody with. He does occasionally smoke cigars when he is driving and about once a month uses marijuana. He does no longer drink alcohol. He does note he has been trying to keep his mood positive but does have some episodic crying. WBC 8.2, Hb 13, platelets 140, NA 145, K3.2, BUN 28, CR 3.7, glucose 101, magnesium 2, LFTs within normal laboratory limits, high-sensitivity troponin is 49, NT proBNP is 2947, a urinalysis with proteinuria hematuria. CT head with no acute abnormality Chest radiograph with cardiomegaly no other abnormalities. EKG sinus rate of 74 bpm meets criteria for LVH, some T WI in 1 to V5 and V6 not notable on prior EKG. Admitted to ICU for further care after multiple doses of IV labetalol did not bring diastolic BP < 140mmHg, started on cardene in ED. Past Medical History Cardiovascular: HTN, Other Pulmonary: No pertinent hx CENTRAL NERVOUS SYSTEM: Other GI: No pertinent hx Heme/Onc: No pertinent hx Hepatobiliary: No pertinent hx Psych: Anxiety Musculoskeletal: low back pain, Osteoarthritis Infectious disease: No pertinent hx Renal/: No pertinent hx Endocrine: No pertinent hx Past Surgical History Past Surgical History: No pertinent history Family History Family History: Hypertension, Stroke Social History Smoke: <1 pack per day (cigars) ALCOHOL: other Drugs: Marijuana (rare) Current Medications Current Medications Current Medications Labetalol HCl (Normodyne Iv Push) 20 mg 1X ONCE IVP Last administered on 11/27/21at 11:54; Start 11/27/21 at 12:00; Stop 11/27/21 at 12:01; Status DC Labetalol HCl (Normodyne Iv Push) 20 mg 1X ONCE IVP Last administered on 11/27/21at 12:59; Start 11/27/21 at 12:45; Stop 11/27/21 at 12:47; Status DC Labetalol HCl (Normodyne Iv Push) 20 mg 1X ONCE IVP Last administered on 11/27/21at 13:59; Start 11/27/21 at 13:45; Stop 11/27/21 at 13:46; Status DC Potassium Chloride (Klor-Con) 40 meq 1X ONCE PO ; Start 11/27/21 at 14:30; Stop 11/27/21 at 14:31; Status DC Active Scripts Active Hydrochlorothiazide Tablet (Hydrochlorothiazide) 25 Mg Tablet 25 Mg PO DAILY Metoprolol Tartrate 25 Mg Tablet 1 Tab PO BID Reported Hydralazine Hcl 50 Mg Tablet 1 Tab PO TID Hydrochlorothiazide Tablet (Hydrochlorothiazide) 25 Mg Tablet 25 Mg PO DAILY Carvedilol 25 Mg Tablet 25 Mg PO BIDWMEALS Amlodipine Besylate 10 Mg Tablet 10 Mg PO DAILY Cyclobenzaprine Hcl 10 Mg Tablet 10 Mg PO BID Citalopram Hbr (Citalopram Hydrobromide) 40 Mg Tablet 40 Mg PO DAILY Klor-Con 8 (Potassium Chloride) 8 Meq Tablet.er 8 Meq PO DAILY Allergies Allergies: Coded Allergies: lisinopril (Verified Allergy, Severe, angioedema/swelling, 11/27/21) ROS General: YES: Fatigue, Malaise; No: Chills, Night Sweats, Appetite, Other PSYCHOLOGICAL ROS: No: Anxiety, Behavioral Disorder, Concentration difficultie, Decreased libido, Depression, Disorientation, Hallucinations, Hostility, Irritablity, Memory difficulties, Mood Swings, Obsessive thoughts, Physical abuse, Sexual abuse, Sleep disturbances, Suicidal ideation, Other Eyes: No Blurry vision, No Decreased vision, No Double vision, No Dry eyes, No Excessive tearing, No Eye Pain, No Itchy Eyes, No Loss of vision, No Photophobia, No Scotomata, No Uses contacts, No Uses glasses, No Other HEENT: YES: Heacaches, Visual Changes; No: Hearing change, Nasal congestion, Nasal discharge, Oral lesions, Sinus pain, Sore Throat, Epistaxis, Sneezing, Snoring, Tinnitus, Vertigo, Vocal c hanges, Other ALLERGY AND IMMUNOLOGY: No: Hives, Insect Bite Sensitivity, Itchy/Watery Eyes, Nasal Congestion, Post Nasal Drip, Seasonal Allergies, Other Hematological and Lymphatic: No: Bleeding Problems, Blood Clots, Blood Transfusions, Brusing, Night Sweats, Pallor, Swollen Lymph Nodes, Other ENDOCRINE: No: Breast Changes, Galactorrhea, Hair Pattern Changes, Hot Flashes, Malaise/lethargy, Mood Swings, Palpitations, Polydipsia/polyuria, Skin Changes, Temperature Intolerance, Unexpected Weight Changes, Other Breast: No New/Changing Breast Lumps, No Nipple changes, No Nipple discharge, No Other Respiratory: YES: Shortness of breath, SOB with excertion, Tachypnea, Wheezing; No: Cough, Hemoptysis, Orthopnea, Pleuritic Pain, Sputum Changes, Stridor, Other Cardiovascular: yes Chest Pain; No Palpitations, No Orthopnea, No Paroxysmal Noc. Dyspnea, No Edema, No Lt Headedness, No Other Gastrointestinal: Yes Nausea; No Vomiting, No Abdominal Pain, No Diarrhea, No Constipation, No Melena, No Hematochezia, No Other Genitourinary: YES Hematuria; No Dysuria, No Frequency, No Incontinence, No Retention, No Discharge, No Urgency, No Pain, No Flank Pain, No Other, No , No , No , No , No , No , No Musculoskeletal: No Gait Disturbance, No Joint Pain, No Joint Stiffness, No Joint Swelling, No Muscle Pain, No Muscular Weakness, No Pain In:, No Swelling In:, No Other Neurological: No Behavorial Changes, No Bowel/Bladder ControlChng, No Confusion, No Dizziness, No Gait Disturbance, No Headaches, No Impaired Coord/balance, No Memory Loss, No Numbness/Tingling, No Seizures, No Speech Problems, No Tremors, No Visual Changes, No Weakness, No Other Skin: No Dry Skin, No Eczema, No Hair Changes, No Lumps, No Mole Changes, No Mottling, No Nail Changes, No Pruritus, No Rash, No Skin Lesion Changes, No Other, No Acne Physical Exam General: Alert, Oriented X3, Cooperative, moderate distress HEENT: Atraumatic, PERRLA, EOMI, Mucous membr. moist/pink Lungs: Clear to auscultation, Normal air movement Heart: S1S2, RRR, no thrills, no rubs, no gallops, no murmurs Abdomen: Normal bowel sounds, Soft, No tenderness, No hepatosplenomegaly, No masses Rectal Exam: not examined Extremities: No clubbing, No cyanosis, Normal pulses, No tenderness/swelling, Other (1+ pedal edema bilaterally) Skin: No rashes, No breakdown, No significant lesion Neuro: Normal gait, Normal speech, Strength at 5/5 X4 ext, Normal tone, Sensation intact, Cranial nerves 3-12 NL, Reflexes 2+ Psych/Mental Status: Mental status NL, Mood NL Vitals Vitals Vital Signs Date Time Temp Pulse Resp B/P (MAP) Pulse Ox O2 Delivery O2 Flow Rate FiO2 11/27/21 13:59 66 232/144 11/27/21 13:26 20 98 Room Air 11/27/21 10:34 98.0 98.0 Labs Labs Laboratory Tests Test 11/27/21 11:03 11/27/21 13:00 White Blood Count 8.2 x10^3/uL (4.0-11.0) Red Blood Count 4.76 x10^6/uL (4.30-5.70) Hemoglobin 13.0 g/dL (13.0-17.5) Hematocrit 40.2 % (39.0-53.0) Mean Corpuscular Volume 85 fL (79-100) Mean Corpuscular Hemoglobin 27 pg (25-35) Mean Corpuscular Hemoglobin Concent 32 g/dL (31-37) Red Cell Distribution Width 15.9 % (11.5-14.5) Platelet Count 140 x10^3/uL (140-400) Neutrophils (%) (Auto) 71 % (31-73) Lymphocytes (%) (Auto) 16 % (24-48) Monocytes (%) (Auto) 10 % (0-9) Eosinophils (%) (Auto) 2 % (0-3) Basophils (%) (Auto) 1 % (0-3) Neutrophils # (Auto) 5.8 x10^3/uL (1.8-7.7) Lymphocytes # (Auto) 1.3 x10^3/uL (1.0-4.8) Monocytes # (Auto) 0.8 x10^3/uL (0.0-1.1) Eosinophils # (Auto) 0.2 x10^3/uL (0.0-0.7) Basophils # (Auto) 0.1 x10^3/uL (0.0-0.2) Sodium Level 145 mmol/L (136-145) Potassium Level 3.2 mmol/L (3.5-5.1) Chloride Level 105 mmol/L (98-107) Carbon Dioxide Level 29 mmol/L (21-32) Anion Gap 11 (6-14) Blood Urea Nitrogen 28 mg/dL (8-26) Creatinine 3.7 mg/dL (0.7-1.3) Estimated GFR (Cockcroft-Gault) 21.1 BUN/Creatinine Ratio 8 (6-20) Glucose Level 101 mg/dL (70-99) Calcium Level 8.2 mg/dL (8.5-10.1) Magnesium Level 2.0 mg/dL (1.8-2.4) Total Bilirubin 0.9 mg/dL (0.2-1.0) Aspartate Amino Transf (AST/SGOT) 14 U/L (15-37) Alanine Aminotransferase (ALT/SGPT) 22 U/L (16-63) Alkaline Phosphatase 55 U/L (46-116) Troponin I High Sensitivity 49 ng/L (4-75) NC-Ths-B-Type Natriuretic Peptide 2947 pg/mL (0-124) Total Protein 6.6 g/dL (6.4-8.2) Albumin 3.5 g/dL (3.4-5.0) Albumin/Globulin Ratio 1.1 (1.0-1.7) Urine Collection Type Unknown Urine Color (Auto) Light yellow Urine Turbidity Clear Urine pH (Auto) 6.5 (<5.0-8.0) Urine Specific [place] 1.019 (1.000-1.030) Urine Protein (Auto) 300 mg/dL (Negative) Urine Glucose (Auto)(UA) Negative mg/dL (Negative) Urine Ketones (Auto) Negative mg/dL (Negative) Urine Blood (Auto) Moderate (Negative) Urine Nitrite Negative (Negative) Urine Bilirubin (Auto) Negative (Negative) Urine Urobilinogen (Auto) Normal mg/dL (Normal) Urine Leukocyte Esterase (Auto) Negative (Negative) Urine RBC 3-5 /HPF (0-2) Urine WBC 1-4 /HPF (0-4) Urine Squamous Epithelial Cells Mod /LPF Urine Bacteria Few /HPF (0-FEW) Urine Hyaline Casts Occasional /HPF Laboratory Tests Test 11/27/21 11:03 11/27/21 13:00 White Blood Count 8.2 x10^3/uL (4.0-11.0) Red Blood Count 4.76 x10^6/uL (4.30-5.70) Hemoglobin 13.0 g/dL (13.0-17.5) Hematocrit 40.2 % (39.0-53.0) Mean Corpuscular Volume 85 fL (79-100) Mean Corpuscular Hemoglobin 27 pg (25-35) Mean Corpuscular Hemoglobin Concent 32 g/dL (31-37) Red Cell Distribution Width 15.9 % (11.5-14.5) Platelet Count 140 x10^3/uL (140-400) Neutrophils (%) (Auto) 71 % (31-73) Lymphocytes (%) (Auto) 16 % (24-48) Monocytes (%) (Auto) 10 % (0-9) Eosinophils (%) (Auto) 2 % (0-3) Basophils (%) (Auto) 1 % (0-3) Neutrophils # (Auto) 5.8 x10^3/uL (1.8-7.7) Lymphocytes # (Auto) 1.3 x10^3/uL (1.0-4.8) Monocytes # (Auto) 0.8 x10^3/uL (0.0-1.1) Eosinophils # (Auto) 0.2 x10^3/uL (0.0-0.7) Basophils # (Auto) 0.1 x10^3/uL (0.0-0.2) Sodium Level 145 mmol/L (136-145) Potassium Level 3.2 mmol/L (3.5-5.1) Chloride Level 105 mmol/L (98-107) Carbon Dioxide Level 29 mmol/L (21-32) Anion Gap 11 (6-14) Blood Urea Nitrogen 28 mg/dL (8-26) Creatinine 3.7 mg/dL (0.7-1.3) Estimated GFR (Cockcroft-Gault) 21.1 BUN/Creatinine Ratio 8 (6-20) Glucose Level 101 mg/dL (70-99) Calcium Level 8.2 mg/dL (8.5-10.1) Magnesium Level 2.0 mg/dL (1.8-2.4) Total Bilirubin 0.9 mg/dL (0.2-1.0) Aspartate Amino Transf (AST/SGOT) 14 U/L (15-37) Alanine Aminotransferase (ALT/SGPT) 22 U/L (16-63) Alkaline Phosphatase 55 U/L (46-116) Troponin I High Sensitivity 49 ng/L (4-75) BK-Exj-G-Type Natriuretic Peptide 2947 pg/mL (0-124) Total Protein 6.6 g/dL (6.4-8.2) Albumin 3.5 g/dL (3.4-5.0) Albumin/Globulin Ratio 1.1 (1.0-1.7) Urine Collection Type Unknown Urine Color (Auto) Light yellow Urine Turbidity Clear Urine pH (Auto) 6.5 (<5.0-8.0) Urine Specific [place] 1.019 (1.000-1.030) Urine Protein (Auto) 300 mg/dL (Negative) Urine Glucose (Auto)(UA) Negative mg/dL (Negative) Urine Ketones (Auto) Negative mg/dL (Negative) Urine Blood (Auto) Moderate (Negative) Urine Nitrite Negative (Negative) Urine Bilirubin (Auto) Negative (Negative) Urine Urobilinogen (Auto) Normal mg/dL (Normal) Urine Leukocyte Esterase (Auto) Negative (Negative) Urine RBC 3-5 /HPF (0-2) Urine WBC 1-4 /HPF (0-4) Urine Squamous Epithelial Cells Mod /LPF Urine Bacteria Few /HPF (0-FEW) Urine Hyaline Casts Occasional /HPF Images Images Findings: Heart appears enlarged. No pneumothorax, pleural effusion, or focal infiltrate is seen. No acute osseous changes are identified. IMPRESSION: 1.Cardiomegaly 2. No other acute cardiopulmonary process is identified Electronically signed by: Kenn Lorenzo MD (11/27/2021 12:13 PM) [id number] REASON: Hypertensive crisis PROCEDURE: CT HEAD WO CONTRAST CT Head without contrast 11/27/2021 12:03 PM Indication: Hypertensive crisis: Comparison: CT head without contrast August 31, 2021 Findings: No intracranial hemorrhage is seen. No evidence of acute territorial infarct is seen. Note that CT is limited in sensitivity for acute ischemia. There is patchy periventricular and deep white matter hypoattenuation which is nonspecific, but most commonly relates to chronic small vessel disease. The appearance is similar prior study. Area of low density in the pavan is also seen. Small chronic infarct is possible. This is also unchanged. No abnormal extra axial fluid collection is identified. No mass effect or midline shift is seen. No acute osseous abnormalities are seen. Impression: 1. No acute intracranial process identified 2. Prominent changes of chronic small vessel disease for patient age, as described VTE Prophylaxis Ordered VTE Prophylaxis Devices: No VTE Pharmacological Prophylaxi: Yes Assessment/Plan Assessment/Plan HTN emergency - compliance difficulties. Has some CHF symptoms, dangerously high diastolic BP not responsive to labetalol. Will admit to ICU on cardene and NTG topical. Shortness of breath - likely acute CHF from above. Will give prn nebs given his history of cigar smoking, possibly with mild bronchitis BRAEDEN on likely CKD - will have renal imaging with dopplers and consult nephrology. likely vasomotor nepropathy as end-organ damage from hypertensive emergency Painless hematuria - will check CK, f/u urinalysis, may need urine cytology EKG abnormalities - likely from hypertensive crisis with cardiac strain evident in lateral leads. Cardiology to see. Trend troponin, maintain telemetry Smokeless tobacco use - also smoking cigars when driving. Alcohol use disorder - has basically stopped drinking Obesity - counseled on lifestyle modification Chronic low back pain: controlled Hypokalemia - will replace Depressed mood - possibly complicated grief over marital separation. Offered SSRI, he defers at this time, can give prn anxiolytics. FEN - Cardiac diet PPX - heparin FULL CODE Dispo - ICU for above CC time 47 minutes Justifications for Admission General Conditions Hemodynamically stable?: Yes Justification for admission: Patient hemodynamically unstable as indicated by persistent orthostatic vital signs changes ie fall of SBP of 20 mmHg or more OR fall in DBP of 10mmHg or more, 1 to 3 minutes after patient sits/stands from recumbent position. Other Justification LEON KAUR MD Nov 27, 2021 14:56
[2021-11-27] MEDS: HEPARIN for SUB-Q USE 5,000 UNIT/ML VIAL. SQ SCH ×2 (15:29→22:24)
[2021-11-27] MEDS ORDERED: ONDANSETRON PF 4 MG/2 ML VIAL. IVP PRN (17:00)
[2021-11-27] MEDS ORDERED: ASPIRIN CHEWABLE 81 MG TABLET. PO ONE (17:00)
[2021-11-27] MEDS ORDERED: ZOLPIDEM 5 MG TABLET. PO PRN (17:00)
[2021-11-27] MEDS ORDERED: fentaNYL PF VIAL 100 MCG/2 ML VIAL IVP PRN (17:00)
[2021-11-27] MEDS: hydrALAZINE 20 MG/ML VIAL. IVP PRN (17:40)
[2021-11-27] MEDS: ALBUTEROL SULFATE 2.5 MG/3 ML NEBU. NEB PRN ×2 (17:43→20:31)
[2021-11-27] MEDS: NITROGLYCERIN OINT 1 GM PACKET. TP SCH (17:52)
[2021-11-27] MEDS ORDERED: ALBU2.5V8 INH (17:55)
[2021-11-28] VITALS (16 sets, daily range): BP systolic 140–169; BP diastolic 59–96
[2021-11-28 05:47] LABS: BASO # 0.1 x10^3/uL (0.0-0.2); BASO % 1 % (0-3); EOS # 0.1 x10^3/uL (0.0-0.7); EOS % 1 % (0-3); HEMATOCRIT 43.3 % (39.0-53.0); LYMPH # 1.3 x10^3/uL (1.0-4.8); LYMPH % 14 % (24-48); MEAN CORPUSCULAR HEMOGLOBIN 27 pg (25-35); MEAN CORPUSCULAR HGB CONC 32 g/dL (31-37); MEAN CORPUSCULAR VOLUME 84 fL (79-100); MONO # 0.7 x10^3/uL (0.0-1.1); MONO % 8 % (0-9); NEUT % 77 % (31-73); PLATELET COUNT 147 x10^3/uL (140-400); RED BLOOD COUNT 5.14 x10^6/uL (4.30-5.70); RED CELL DISTRIBUTION WIDTH 15.6 % (11.5-14.5); WHITE BLOOD COUNT 9.2 x10^3/uL (4.0-11.0)
[2021-11-28 06:11] LABS: ALBUMIN 3.6 g/dL (3.4-5.0); ALBUMIN/GLOBULIN RATIO 0.9 (1.0-1.7); CALCIUM 8.5 mg/dL (8.5-10.1); CREATININE 3.4 mg/dL (0.7-1.3); GFR 23.3; TOTAL BILIRUBIN 0.8 mg/dL (0.2-1.0); TOTAL PROTEIN 7.5 g/dL (6.4-8.2)
[2021-11-28 06:14] LABS: POTASSIUM 2.9 mmol/L (3.5-5.1)
[2021-11-28] MEDS: HEPARIN for SUB-Q USE 5,000 UNIT/ML VIAL. SQ SCH ×3 (06:15→22:41)
[2021-11-28] MEDS: NITROGLYCERIN OINT 1 GM PACKET. TP SCH ×2 (06:15)
[2021-11-28] MEDS: ALBUTEROL SULFATE 2.5 MG/3 ML NEBU. NEB PRN (07:27)
[2021-11-28] MEDS: POTASSIUM CHLORIDE 20 MEQ TABLET.ER. PO SCH ×3 (07:36→09:38)
--- NOTE | 2021-11-28 07:52 | EKG ---
[facility] [address] [place] [address] Test Date: 2021-11-27 Test Time: 10:56:38 Pat Name: BOB THURSTON Department: Room: 104 1 Gender: M [employer] Engineer: : 1970 Requested By: VIKAS SKAGGS Order Number: [id number] Reading MD: Jorden Fay MD Measurements Intervals [place] Rate: 74 P: 45 OK: 170 QRS: 39 QRSD: 92 T: 185 QT: 414 QTc: 460 Interpretive Statements SINUS RHYTHM LEFT ATRIAL ABNORMALITY LVH WITH REPOLARIZATION ABNORMALITY ABNORMAL ECG Consider ischemia in the anterolateral leads Electronically Signed On 11-29-2021 17:51:42 CDT by Jorden Fay MD
[2021-11-28] MEDS ORDERED: ASPIRIN ENTERIC COATED 81 MG TABLET.DR. PO SCH (08:00)
--- NOTE | 2021-11-28 08:16 | PDOC ---
[employer] PROGRESS NOTE Date of Service DOS: DATE: 11/28/21 TIME: 08:12 Chief Complaint Chief Complaint HTN emergency - compliance difficulties. dangerously high diastolic BP not responsive to labetalol. Shortness of breath - acute diastolic CHF from above. BRAEDEN on likely CKD - renal imaging done, consult pending , Painless hematuria - Smokeless tobacco use - prior Alcohol use disorder - BMI 30 Chronic low back pain: controlled Hypokalemia - replaced adjustment disorder - grief over illness History of Present Illness History of Present Illness feels much better this AM, still some shortness of breath in ICU with cardene gtt, some meds ordered, he stopped all meds 2 years ago, he is unsure of which gave him symptoms and such. some lethargy and some na usea Vitals/I&O Vitals/I&O: Vital Signs Date Time Temp Pulse Resp B/P (MAP) Pulse Ox O2 Delivery O2 Flow Rate FiO2 11/28/21 07:28 98 Room Air 11/28/21 06:15 81 143/88 11/28/21 06:00 16 11/28/21 04:00 98.6 98.6 I & O 11/27/21 11/27/21 11/28/21 15:00 23:00 07:00 Intake Total 120 ml 1556 ml Output Total 200 ml 300 ml Balance -80 ml 1256 ml Physical Exam General: Alert, Oriented X3, Cooperative, No acute distress Abdomen: Normal bowel sounds, Soft, No tenderness, No hepatosplenomegaly, No masses Extremities: No clubbing, No cyanosis, Normal pulses, No tenderness/swelling, Other (1+ pedal edema bilaterally) Skin: No rashes, No breakdown, No significant lesion Labs Labs: Laboratory Tests Test 11/27/21 11:03 11/27/21 13:00 11/27/21 20:00 11/28/21 05:35 White Blood Count 8.2 x10^3/uL (4.0-11.0) 9.2 x10^3/uL (4.0-11.0) Red Blood Count 4.76 x10^6/uL (4.30-5.70) 5.14 x10^6/uL (4.30-5.70) Hemoglobin 13.0 g/dL (13.0-17.5) 14.0 g/dL (13.0-17.5) Hematocrit 40.2 % (39.0-53.0) 43.3 % (39.0-53.0) Mean Corpuscular Volume 85 fL (79-100) 84 fL (79-100) Mean Corpuscular Hemoglobin 27 pg (25-35) 27 pg (25-35) Mean Corpuscular Hemoglobin Concent 32 g/dL (31-37) 32 g/dL (31-37) Red Cell Distribution Width 15.9 % (11.5-14.5) 15.6 % (11.5-14.5) Platelet Count 140 x10^3/uL (140-400) 147 x10^3/uL (140-400) Neutrophils (%) (Auto) 71 % (31-73) 77 % (31-73) Lymphocytes (%) (Auto) 16 % (24-48) 14 % (24-48) Monocytes (%) (Auto) 10 % (0-9) 8 % (0-9) Eosinophils (%) (Auto) 2 % (0-3) 1 % (0-3) Basophils (%) (Auto) 1 % (0-3) 1 % (0-3) Neutrophils # (Auto) 5.8 x10^3/uL (1.8-7.7) 7.0 x10^3/uL (1.8-7.7) Lymphocytes # (Auto) 1.3 x10^3/uL (1.0-4.8) 1.3 x10^3/uL (1.0-4.8) Monocytes # (Auto) 0.8 x10^3/uL (0.0-1.1) 0.7 x10^3/uL (0.0-1.1) Eosinophils # (Auto) 0.2 x10^3/uL (0.0-0.7) 0.1 x10^3/uL (0.0-0.7) Basophils # (Auto) 0.1 x10^3/uL (0.0-0.2) 0.1 x10^3/uL (0.0-0.2) Sodium Level 145 mmol/L (136-145) 141 mmol/L (136-145) Potassium Level 3.2 mmol/L (3.5-5.1) 2.9 mmol/L (3.5-5.1) Chloride Level 105 mmol/L (98-107) 105 mmol/L (98-107) Carbon Dioxide Level 29 mmol/L (21-32) 25 mmol/L (21-32) Anion Gap 11 (6-14) 11 (6-14) Blood Urea Nitrogen 28 mg/dL (8-26) 28 mg/dL (8-26) Creatinine 3.7 mg/dL (0.7-1.3) 3.4 mg/dL (0.7-1.3) Estimated GFR (Cockcroft-Gault) 21.1 23.3 BUN/Creatinine Ratio 8 (6-20) 8 (6-20) Glucose Level 101 mg/dL (70-99) 112 mg/dL (70-99) Calcium Level 8.2 mg/dL (8.5-10.1) 8.5 mg/dL (8.5-10.1) Magnesium Level 2.0 mg/dL (1.8-2.4) Total Bilirubin 0.9 mg/dL (0.2-1.0) 0.8 mg/dL (0.2-1.0) Aspartate Amino Transf (AST/SGOT) 14 U/L (15-37) 13 U/L (15-37) Alanine Aminotransferase (ALT/SGPT) 22 U/L (16-63) 17 U/L (16-63) Alkaline Phosphatase 55 U/L (46-116) 54 U/L (46-116) Creatine Kinase 588 U/L (39-308) Troponin I High Sensitivity 49 ng/L (4-75) 60 ng/L (4-75) RF-Brb-Y-Type Natriuretic Peptide 2947 pg/mL (0-124) Total Protein 6.6 g/dL (6.4-8.2) 7.5 g/dL (6.4-8.2) Albumin 3.5 g/dL (3.4-5.0) 3.6 g/dL (3.4-5.0) Albumin/Globulin Ratio 1.1 (1.0-1.7) 0.9 (1.0-1.7) Thyroid Stimulating Hormone (TSH) 1.315 uIU/mL (0.358-3.74) Urine Collection Type Unknown Urine Color (Auto) Light yellow Urine Turbidity Clear Urine pH (Auto) 6.5 (<5.0-8.0) Urine Specific [place] 1.019 (1.000-1.030) Urine Protein (Auto) 300 mg/dL (Negative) Urine Glucose (Auto)(UA) Negative mg/dL (Negative) Urine Ketones (Auto) Negative mg/dL (Negative) Urine Blood (Auto) Moderate (Negative) Urine Nitrite Negative (Negative) Urine Bilirubin (Auto) Negative (Negative) Urine Urobilinogen (Auto) Normal mg/dL (Normal) Urine Leukocyte Esterase (Auto) Negative (Negative) Urine RBC 3-5 /HPF (0-2) Urine WBC 1-4 /HPF (0-4) Urine Squamous Epithelial Cells Mod /LPF Urine Bacteria Few /HPF (0-FEW) Urine Hyaline Casts Occasional /HPF Review of Systems Review of Systems: no n,v.d str better Assessment and Plan Assessmemt and Plan Problems Medical Problems: (1) Abnormal EKG Status: Acute (2) Acute renal failure Status: Acute Comment Review of Relevant I have reviewed the following items martín (where applicable) has been applied. Medications: Current Medications Medications (Trade) Dose Ordered Sig/Marquita Route PRN Reason Start Time Stop Time Status Last Admin Dose Admin Labetalol HCl (Normodyne Iv Push) 20 mg 1X ONCE IVP 11/27/21 12:00 11/27/21 12:01 DC 11/27/21 11:54 Labetalol HCl (Normodyne Iv Push) 20 mg 1X ONCE IVP 11/27/21 12:45 11/27/21 12:47 DC 11/27/21 12:59 Labetalol HCl (Normodyne Iv Push) 20 mg 1X ONCE IVP 11/27/21 13:45 11/27/21 13:46 DC 11/27/21 13:59 Potassium Chloride (Klor-Con) 40 meq 1X ONCE PO 11/27/21 14:30 11/27/21 14:31 DC 11/27/21 15:17 Hydralazine HCl (Apresoline Inj) 10 mg PRN Q4HRS PRN IVP ELEVATED BP, SEE COMMENTS 11/27/21 14:45 11/27/21 17:40 Heparin Sodium (Porcine) (Heparin Sodium) 5,000 unit Q8HRS SQ 11/27/21 15:00 11/28/21 06:15 Nicardipine HCl 50 mg/Sodium Chloride 250 ml @ 25 mls/hr CONT PRN IV PER PROTOCOL 11/27/21 14:45 11/28/21 05:07 Nitroglycerin (Nitro-Bid Oint) 1 inch Q6HRS TP 11/27/21 18:00 11/28/21 06:15 Aspirin (Aspirin Chewable) 81 mg 1X ONCE PO 11/27/21 17:00 11/27/21 17:01 DC 11/27/21 17:50 Albuterol Sulfate (Ventolin Neb Soln) 2.5 mg PRN Q4HRS PRN NEB SHORTNESS OF BREATH 11/27/21 17:00 11/28/21 07:27 Potassium Chloride (Klor-Con) 20 meq Q1HR PO 11/28/21 07:00 11/28/21 09:01 11/28/21 07:36 Justifications for Admission General Conditions Hemodynamically stable?: Yes Justification for admission: Patient hemodynamically unstable as indicated by persistent orthostatic vital signs changes ie fall of SBP of 20 mmHg or more OR fall in DBP of 10mmHg or more, 1 to 3 minutes after patient sits/stands from recumbent position. Other Justification LULU CLEARY MD Nov 28, 2021 08:16
--- NOTE | 2021-11-28 08:17 | RAD ---
US RENAL DUPLEX History: Reason: BRAEDEN, hypertensive emergency / Spl. Instructions: / History: Comparison: None. Technique: Multiple grayscale, color flow, and Doppler spectral waveform analysis images of the abdom inal aorta and renal arteries were obtained. Findings: Abdominal aorta peak systolic velocity: 139 cm/sec. Right main renal artery peak systolic velocity: 107 cm/sec. Right renal artery to aorta ratio: 0.77 Left main renal artery peak systolic velocity: 149 cm/sec. Left renal artery to aorta ratio: 1.1 Renal veins are patent. IVC unremarkable. The right kidney measures 11.8 cm. The left kidney measures 10.1 cm. Elevated bilateral renal artery resistive indices on the right measures 0.8 and left 0.8. No hydronephrosis. IMPRESSION: 1. No evidence of renal artery stenosis. 2. Elevated bilateral renal artery resistive indices, may indicate medical renal disease. Electronically signed by: Beny Love DO (11/28/2021 8:14 AM) [id number]
[2021-11-28] MEDS: ISOSORBIDE MONONITRATE ER 30 MG TAB.ER.24H PO SCH (08:19)
--- NOTE | 2021-11-28 09:34 | PDOC2 ---
CONSULT Date of Consult Date of Consult DATE: 11/28/21 TIME: 09:16 Source Source: Chart review, Patient History of Present Illness Reason for Visit: patient is a 51-year-old AA male with PMHx depression, HTN who presents to the emergency department on advice of his primary care physician at [facility] due to elevated blood pressure. Over the past month he has noted shortness of breath, dizziness, and intermittent mental fogginess as well as upset stomach that has been progressive. He also notes some lower extremity swelling in his ankles abdominal fullness and wheezing. He reports noticing blood in his urine in the morning for the past 3 weeks. Hr denies chest pain, chest palpitations, denies headaches, denies abdominal pain, vomiting or diarrhea, denies recent fever or chills. Previously had angioedema due to lisinopril. He notes 5 years ago he was on 3 other blood pressure medications but he vomited them up daily though he was drinking at the time. He was under a lot of stress back then as he was undergoing marital separation. He reports he has not taken his meds at least for a year. Goes to [facility] due to no insurance. Has been to [facility] ER a few times, recently in Sep with c/o headache, was not hospitalized States Noted Blood in Urine initial stream . only in the morning- going on for 3 weeks- Off and on . He states he thought blood was 2/2 lifting heavy stuff at home Denies any dysuria, No symptoms of UTI . States has noted some improvement in UOP today . No Flank or SP pain. Denies Hx of Kidney stones. Takes Ibuprofen prn - 2 tabs every few weeks as needed for headache/Bodyache etc .. Denies any supplements , No Creatine /protein supplements . Currently denies any SOB at rest . No CP or headache . Denies any FHx of CKD or ESRD. He was not aware that his Creatinine or Kidney function has been abnormal Tearful during conversation and states he is scared He does occasionally smoke cigars when he is driving and about once a month uses marijuana. Admitted to ICU after multiple doses of IV labetalol did not bring diastolic BP < 140mmHg, started on cardene in ED. 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 He has a 12-year-old daughter he shares custody with his ex <1 pack per day (cigars) ALCOHOL: other Drugs: Marijuana (rare) Lives: with Family Current Problem List Problem List Problems Medical Problems: (1) Abnormal EKG Status: Acute (2) Acute renal failure Status: Acute Current Medications Current Medications Current Medications Labetalol HCl (Normodyne Iv Push) 20 mg 1X ONCE IVP Last administered on 11/27/21at 11:54; Start 11/27/21 at 12:00; Stop 11/27/21 at 12:01; Status DC Labetalol HCl (Normodyne Iv Push) 20 mg 1X ONCE IVP Last administered on 11/27/21at 12:59; Start 11/27/21 at 12:45; Stop 11/27/21 at 12:47; Status DC Labetalol HCl (Normodyne Iv Push) 20 mg 1X ONCE IVP Last administered on 11/27/21at 13:59; Start 11/27/21 at 13:45; Stop 11/27/21 at 13:46; Status DC Potassium Chloride (Klor-Con) 40 meq 1X ONCE PO Last administered on 11/27/21at 15:17; Start 11/27/21 at 14:30; Stop 11/27/21 at 14:31; Status DC Hydralazine HCl (Apresoline Inj) 10 mg PRN Q4HRS PRN IVP ELEVATED BP, SEE COMMENTS Last administered on 11/27/21at 17:40; Start 11/27/21 at 14:45 Heparin Sodium (Porcine) (Heparin Sodium) 5,000 unit Q8HRS SQ Last administered on 11/28/21at 06:15; Start 11/27/21 at 15:00 Sodium Chloride (Normal Saline Flush) 3 ml QSHIFT PRN IV AFTER MEDS AND BLOOD DRAWS; Start 11/27/21 at 14:45 Nicardipine HCl 50 mg/Sodium Chloride 250 ml @ 25 mls/hr CONT PRN IV PER PROTOCOL Last administered on 11/28/21at 05:07; Start 11/27/21 at 14:45 Nitroglycerin (Nitro-Bid Oint) 1 inch Q6HRS TP Last administered on 11/28/21at 06:15; Start 11/27/21 at 18:00 Aspirin (Aspirin Chewable) 81 mg 1X ONCE PO Last administered on 11/27/21at 17:50; Start 11/27/21 at 17:00; Stop 11/27/21 at 17:01; Status DC Aspirin (Ecotrin) 81 mg DAILYWBKFT PO Last administered on 11/28/21at 08:17; Start 11/28/21 at 08:00 Fentanyl Citrate (Fentanyl 2ml Vial) 25 mcg PRN Q3HRS PRN IVP SEVERE PAIN 7-10; Start 11/27/21 at 17:00 Tramadol HCl (Ultram) 50 mg PRN Q6HRS PRN PO MODERATE - SEVERE PAIN; Start 11/27/21 at 17:00 Ondansetron HCl (Zofran) 4 mg PRN Q4HRS PRN IVP NAUSEA/VOMITING; Start 11/27/21 at 17:00 Acetaminophen (Tylenol) 650 mg PRN Q6HRS PRN PO MILD PAIN / TEMP > 100.3'F; Start 11/27/21 at 17:00 Zolpidem Tartrate (Ambien) 5 mg PRN QHS PRN PO INSOMNIA; Start 11/27/21 at 17:00 Albuterol Sulfate (Ventolin Neb Soln) 2.5 mg PRN Q4HRS PRN NEB SHORTNESS OF BREATH Last administered on 11/28/21at 07:27; Start 11/27/21 at 17:00 Lorazepam (Ativan) 0.5 mg PRN Q8HRS PRN PO ANXIETY / AGITATION; Start 11/27/21 at 17:00 Potassium Chloride (Klor-Con) 20 meq Q1HR PO Last administered on 11/28/21at 08:19; Start 11/28/21 at 07:00; Stop 11/28/21 at 09:01; Status DC Amlodipine Besylate (Norvasc) 10 mg DAILY PO Last administered on 11/28/21at 08:19; Start 11/28/21 at 09:00 Isosorbide Mononitrate (Imdur) 30 mg DAILY PO Last administered on 11/28/21at 08:19; Start 11/28/21 at 09:00 Albuterol Sulfate (Ventolin Neb Soln) 2 mg PRN Q4HRS PRN INH SHORTNESS OF BREATH; Start 11/28/21 at 07:30 Active Scripts Active Hydrochlorothiazide Tablet (Hydrochlorothiazide) 25 Mg Tablet 25 Mg PO DAILY Metoprolol Tartrate 25 Mg Tablet 1 Tab PO BID Reported Proair Hfa (Albuterol Sulfate) 8.5 Gm Hfa.aer.ad 1 Puff INH PRN Q4HRS PRN Hydralazine Hcl 50 Mg Tablet 1 Tab PO TID Hydrochlorothiazide Tablet (Hydrochlorothiazide) 25 Mg Tablet 25 Mg PO DAILY Carvedilol 25 Mg Tablet 25 Mg PO BIDWMEALS Amlodipine Besylate 10 Mg Tablet 10 Mg PO DAILY Cyclobenzaprine Hcl 10 Mg Tablet 10 Mg PO BID Citalopram Hbr (Citalopram Hydrobromide) 40 Mg Tablet 40 Mg PO DAILY Klor-Con 8 (Potassium Chloride) 8 Meq Tablet.er 8 Meq PO DAILY Allergies Allergies: Coded Allergies: lisinopril (Verified Allergy, Severe, angioedema/swelling, 11/27/21) ROS Review of System As per HPI, rest of the ROS is negative Physical Exam Physical Exam General: NAD HEENT: Atraumatic, PERRLA, EOMI, Mucous membr. moist/pink Neck Supple Lungs: Clear to auscultation, Non labored Heart: S1S2, RRR, no thrills, no rubs, no gallops, no murmurs Abdomen: Normal bowel sounds, Soft, No tenderness, No hepatosplenomegaly, No masses Extremities: No clubbing, No cyanosis, LE 1+ edema bilaterally Skin: No rashes Neuro: grossly normal, No focal deficit Psych/Mental Status: Coopertaive No CVA or SP tenderness Vital Signs Vital Signs Date Time Temp Pulse Resp B/P (MAP) Pulse Ox O2 Delivery O2 Flow Rate FiO2 11/28/21 08:19 79 152/94 11/28/21 07:28 98 Room Air 11/28/21 07:00 16 11/28/21 04:00 98.6 98.6 Assessment & Plan BRAEDEN - ATN ; UA low grade Micr hematuria + , Proteinuria + , CK mildly elevated.Creatinine stable , Monitor . Avoid Nephrotoxins , strict I/O. 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 Suspected etiology Uncontrolled HTN . US RK 11.8 cm ;LK 10.1 cm. Reported cw medical renal disease. HypoKalemia- replaced HTNsive Emergency - Renal doppler reported no e/o RICK .Dangerously high di astolic BP POA- not responsive to labetalo ; admitted to ICU and started on cardene gtt and NTG topical. May consider adding Finerenone (if covered by insurance) or Aldactone if renal function improved to his baseline , Monitor . Echo pending . Card managing Shortness of breath - likely acute CHF from above. Resolved Acute CHF with possible combined systolic/diastolic CHF Painless hematuria - per Pt report ; UA no Bllod, small RBC + Chronic low back pain: controlled Depressed mood - possibly complicated grief over marital separation. Allergy to ACEi: angioedema Labs Labs Laboratory Tests Test 11/27/21 11:03 11/27/21 13:00 11/27/21 20:00 11/28/21 05:35 White Blood Count 8.2 x10^3/uL (4.0-11.0) 9.2 x10^3/uL (4.0-11.0) Red Blood Count 4.76 x10^6/uL (4.30-5.70) 5.14 x10^6/uL (4.30-5.70) Hemoglobin 13.0 g/dL (13.0-17.5) 14.0 g/dL (13.0-17.5) Hematocrit 40.2 % (39.0-53.0) 43.3 % (39.0-53.0) Mean Corpuscular Volume 85 fL (79-100) 84 fL (79-100) Mean Corpuscular Hemoglobin 27 pg (25-35) 27 pg (25-35) Mean Corpuscular Hemoglobin Concent 32 g/dL (31-37) 32 g/dL (31-37) Red Cell Distribution Width 15.9 % (11.5-14.5) 15.6 % (11.5-14.5) Platelet Count 140 x10^3/uL (140-400) 147 x10^3/uL (140-400) Neutrophils (%) (Auto) 71 % (31-73) 77 % (31-73) Lymphocytes (%) (Auto) 16 % (24-48) 14 % (24-48) Monocytes (%) (Auto) 10 % (0-9) 8 % (0-9) Eosinophils (%) (Auto) 2 % (0-3) 1 % (0-3) Basophils (%) (Auto) 1 % (0-3) 1 % (0-3) Neutrophils # (Auto) 5.8 x10^3/uL (1.8-7.7) 7.0 x10^3/uL (1.8-7.7) Lymphocytes # (Auto) 1.3 x10^3/uL (1.0-4.8) 1.3 x10^3/uL (1.0-4.8) Monocytes # (Auto) 0.8 x10^3/uL (0.0-1.1) 0.7 x10^3/uL (0.0-1.1) Eosinophils # (Auto) 0.2 x10^3/uL (0.0-0.7) 0.1 x10^3/uL (0.0-0.7) Basophils # (Auto) 0.1 x10^3/uL (0.0-0.2) 0.1 x10^3/uL (0.0-0.2) Sodium Level 145 mmol/L (136-145) 141 mmol/L (136-145) Potassium Level 3.2 mmol/L (3.5-5.1) 2.9 mmol/L (3.5-5.1) Chloride Level 105 mmol/L (98-107) 105 mmol/L (98-107) Carbon Dioxide Level 29 mmol/L (21-32) 25 mmol/L (21-32) Anion Gap 11 (6-14) 11 (6-14) Blood Urea Nitrogen 28 mg/dL (8-26) 28 mg/dL (8-26) Creatinine 3.7 mg/dL (0.7-1.3) 3.4 mg/dL (0.7-1.3) Estimated GFR (Cockcroft-Gault) 21.1 23.3 BUN/Creatinine Ratio 8 (6-20) 8 (6-20) Glucose Level 101 mg/dL (70-99) 112 mg/dL (70-99) Calcium Level 8.2 mg/dL (8.5-10.1) 8.5 mg/dL (8.5-10.1) Magnesium Level 2.0 mg/dL (1.8-2.4) Total Bilirubin 0.9 mg/dL (0.2-1.0) 0.8 mg/dL (0.2-1.0) Aspartate Amino Transf (AST/SGOT) 14 U/L (15-37) 13 U/L (15-37) Alanine Aminotransferase (ALT/SGPT) 22 U/L (16-63) 17 U/L (16-63) Alkaline Phosphatase 55 U/L (46-116) 54 U/L (46-116) Creatine Kinase 588 U/L (39-308) Troponin I High Sensitivity 49 ng/L (4-75) 60 ng/L (4-75) EA-Emz-U-Type Natriuretic Peptide 2947 pg/mL (0-124) Total Protein 6.6 g/dL (6.4-8.2) 7.5 g/dL (6.4-8.2) Albumin 3.5 g/dL (3.4-5.0) 3.6 g/dL (3.4-5.0) Albumin/Globulin Ratio 1.1 (1.0-1.7) 0.9 (1.0-1.7) Thyroid Stimulating Hormone (TSH) 1.315 uIU/mL (0.358-3.74) Urine Collection Type Unknown Urine Color (Auto) Light yellow Urine Turbidity Clear Urine pH (Auto) 6.5 (<5.0-8.0) Urine Specific [place] 1.019 (1.000-1.030) Urine Protein (Auto) 300 mg/dL (Negative) Urine Glucose (Auto)(UA) Negative mg/dL (Negative) Urine Ketones (Auto) Negative mg/dL (Negative) Urine Blood (Auto) Moderate (Negative) Urine Nitrite Negative (Negative) Urine Bilirubin (Auto) Negative (Negative) Urine Urobilinogen (Auto) Normal mg/dL (Normal) Urine Leukocyte Esterase (Auto) Negative (Negative) Urine RBC 3-5 /HPF (0-2) Urine WBC 1-4 /HPF (0-4) Urine Squamous Epithelial Cells Mod /LPF Urine Bacteria Few /HPF (0-FEW) Urine Hyaline Casts Occasional /HPF Laboratory Tests Test 11/27/21 11:03 11/27/21 13:00 11/27/21 20:00 11/28/21 05:35 White Blood Count 8.2 x10^3/uL (4.0-11.0) 9.2 x10^3/uL (4.0-11.0) Red Blood Count 4.76 x10^6/uL (4.30-5.70) 5.14 x10^6/uL (4.30-5.70) Hemoglobin 13.0 g/dL (13.0-17.5) 14.0 g/dL (13.0-17.5) Hematocrit 40.2 % (39.0-53.0) 43.3 % (39.0-53.0) Mean Corpuscular Volume 85 fL (79-100) 84 fL (79-100) Mean Corpuscular Hemoglobin 27 pg (25-35) 27 pg (25-35) Mean Corpuscular Hemoglobin Concent 32 g/dL (31-37) 32 g/dL (31-37) Red Cell Distribution Width 15.9 % (11.5-14.5) 15.6 % (11.5-14.5) Platelet Count 140 x10^3/uL (140-400) 147 x10^3/uL (140-400) Neutrophils (%) (Auto) 71 % (31-73) 77 % (31-73) Lymphocytes (%) (Auto) 16 % (24-48) 14 % (24-48) Monocytes (%) (Auto) 10 % (0-9) 8 % (0-9) Eosinophils (%) (Auto) 2 % (0-3) 1 % (0-3) Basophils (%) (Auto) 1 % (0-3) 1 % (0-3) Neutrophils # (Auto) 5.8 x10^3/uL (1.8-7.7) 7.0 x10^3/uL (1.8-7.7) Lymphocytes # (Auto) 1.3 x10^3/uL (1.0-4.8) 1.3 x10^3/uL (1.0-4.8) Monocytes # (Auto) 0.8 x10^3/uL (0.0-1.1) 0.7 x10^3/uL (0.0-1.1) Eosinophils # (Auto) 0.2 x10^3/uL (0.0-0.7) 0.1 x10^3/uL (0.0-0.7) Basophils # (Auto) 0.1 x10^3/uL (0.0-0.2) 0.1 x10^3/uL (0.0-0.2) Sodium Level 145 mmol/L (136-145) 141 mmol/L (136-145) Potassium Level 3.2 mmol/L (3.5-5.1) 2.9 mmol/L (3.5-5.1) Chloride Level 105 mmol/L (98-107) 105 mmol/L (98-107) Carbon Dioxide Level 29 mmol/L (21-32) 25 mmol/L (21-32) Anion Gap 11 (6-14) 11 (6-14) Blood Urea Nitrogen 28 mg/dL (8-26) 28 mg/dL (8-26) Creatinine 3.7 mg/dL (0.7-1.3) 3.4 mg/dL (0.7-1.3) Estimated GFR (Cockcroft-Gault) 21.1 23.3 BUN/Creatinine Ratio 8 (6-20) 8 (6-20) Glucose Level 101 mg/dL (70-99) 112 mg/dL (70-99) Calcium Level 8.2 mg/dL (8.5-10.1) 8.5 mg/dL (8.5-10.1) Magnesium Level 2.0 mg/dL (1.8-2.4) Total Bilirubin 0.9 mg/dL (0.2-1.0) 0.8 mg/dL (0.2-1.0) Aspartate Amino Transf (AST/SGOT) 14 U/L (15-37) 13 U/L (15-37) Alanine Aminotransferase (ALT/SGPT) 22 U/L (16-63) 17 U/L (16-63) Alkaline Phosphatase 55 U/L (46-116) 54 U/L (46-116) Creatine Kinase 588 U/L (39-308) Troponin I High Sensitivity 49 ng/L (4-75) 60 ng/L (4-75) OK-Kiv-T-Type Natriuretic Peptide 2947 pg/mL (0-124) Total Protein 6.6 g/dL (6.4-8.2) 7.5 g/dL (6.4-8.2) Albumin 3.5 g/dL (3.4-5.0) 3.6 g/dL (3.4-5.0) Albumin/Globulin Ratio 1.1 (1.0-1.7) 0.9 (1.0-1.7) Thyroid Stimulating Hormone (TSH) 1.315 uIU/mL (0.358-3.74) Urine Collection Type Unknown Urine Color (Auto) Light yellow Urine Turbidity Clear Urine pH (Auto) 6.5 (<5.0-8.0) Urine Specific [place] 1.019 (1.000-1.030) Urine Protein (Auto) 300 mg/dL (Negative) Urine Glucose (Auto)(UA) Negative mg/dL (Negative) Urine Ketones (Auto) Negative mg/dL (Negative) Urine Blood (Auto) Moderate (Negative) Urine Nitrite Negative (Negative) Urine Bilirubin (Auto) Negative (Negative) Urine Urobilinogen (Auto) Normal mg/dL (Normal) Urine Leukocyte Esterase (Auto) Negative (Negative) Urine RBC 3-5 /HPF (0-2) Urine WBC 1-4 /HPF (0-4) Urine Squamous Epithelial Cells Mod /LPF Urine Bacteria Few /HPF (0-FEW) Urine Hyaline Casts Occasional /HPF Review All relevant outside records, renal labs, imaging studies, telemetry/EKG's were reviewed. Images Images US RENAL DUPLEX History: Reason: BRAEDEN, hypertensive emergency / Spl. Instructions: / History: Comparison: None. Technique: Multiple grayscale, color flow, and Doppler spectral waveform analysis images of the abdominal aorta and renal arteries were obtained. Findings: Abdominal aorta peak systolic velocity: 139 cm/sec. Right main renal artery peak systolic velocity: 107 cm/sec. Right renal artery to aorta ratio: 0.77 Left main renal artery peak systolic velocity: 149 cm/sec. Left renal artery to aorta ratio: 1.1 Renal veins are patent. IVC unremarkable. The right kidney measures 11.8 cm. The left kidney measures 10.1 cm. Elevated bilateral renal artery resistive indices on the right measures 0.8 and left 0.8. No hydronephrosis. IMPRESSION: 1. No evidence of renal artery stenosis. 2. Elevated bilateral renal artery resistive indices, may indicate medical renal disease. Electronically signed by: Beny Love DO (11/28/2021 8:14 AM) [id number] Single view of the chest. 11/27/2021 11:54 AM Indication: Reason: Hypertensive crisis Comparison: Chest radiograph October 14, 2019 Findings: Heart appears enlarged. No pneumothorax, pleural effusion, or focal in filtrate is seen. No acute osseous changes are identified. IMPRESSION: 1.Cardiomegaly 2. No other acute cardiopulmonary process is identified Electronically signed by: Knen Lorenzo MD (11/27/2021 12:13 PM) [id number] VANDANA BURNS MD Nov 28, 2021 09:34
[2021-11-28] MEDS: hydrALAZINE 20 MG/ML VIAL. IVP PRN (09:37)
--- NOTE | 2021-11-28 10:14 | PDOC2 ---
CARDIAC CONSULT DATE OF CONSULT Date of Consult DATE: 11/28/21 TIME: 09:58 REASON FOR CONSULT Reason for Consult: HTN emergency, abnormal EKG REFERRING PHYSICIAN Referring Physician: Garry SOURCE Source: Chart review, Patient HISTORY OF PRESENT ILLNESS HISTORY OF PRESENT ILLNESS This is a pleasant 51 yo male admitted for complains of high BP. He has not taken any BP meds for over a yr, stopped it due to side effects such as nausea. HE went to [facility] yesterday and was told that his BP was too high and asked to go to ED. Upon admission his BP was very high. Lately he has been feeling tired. In the last 2-3 weeks he has been developing symptoms such as SOA, some dizziness, throbbing intermittent DUMONT with no visual or auditory hallucination and no focal neuro symptoms. There are times he has intermittent confusion. Also has been intermittent DUMONT in AM, tired midday and positive for orthopnea and PND. No nausea or vomiting and no significnat leg swelling. Denies any chest pain or palpitations. He has a BP monitor at home and could not tell me the number but SBP is consistently above 150. No recent falls or injury. No recent infection and unvaccinated for covid-19. He does not take any medications. He does take ibuprofen about twice a week for body aches. No hx of arrhythmia or CAD. PAST MEDICAL HISTORY Past Medical History Cardiovascular: HTN, Other (angioedema with ACEi) Pulmonary: No pertinent hx CENTRAL NERVOUS SYSTEM: Other (No pertinent history) GI: No pertinent hx Heme/Onc: No pertinent hx Hepatobiliary: No pertinent hx Psych: Anxiety (claustrophobic) Musculoskeletal: low back pain, Osteoarthritis Infectious disease: No pertinent hx ENT: No pertinent hx Renal/: No pertinent hx Endocrine: No pertinent hx Dermatology: No pertinent hx PAST SURGICAL HISTORY Past Surgical History: No pertinent history FAMILY HISTORY Family History: Hypertension, Stroke SOCIAL HISTORY Smoke: Quit ALCOHOL: occassional Drugs: None Lives: with Family CURRENT MEDICATIONS CURRENT MEDICATIONS Current Medications Medications (Trade) Dose Ordered Sig/Marquita Route PRN Reason Start Time Stop Time Status Last Admin Dose Admin Labetalol HCl (Normodyne Iv Push) 20 mg 1X ONCE IVP 11/27/21 12:00 11/27/21 12:01 DC 11/27/21 11:54 Labetalol HCl (Normodyne Iv Push) 20 mg 1X ONCE IVP 11/27/21 12:45 11/27/21 12:47 DC 11/27/21 12:59 Labetalol HCl (Normodyne Iv Push) 20 mg 1X ONCE IVP 11/27/21 13:45 11/27/21 13:46 DC 11/27/21 13:59 Potassium Chloride (Klor-Con) 40 meq 1X ONCE PO 11/27/21 14:30 11/27/21 14:31 DC 11/27/21 15:17 Hydralazine HCl (Apresoline Inj) 10 mg PRN Q4HRS PRN IVP ELEVATED BP, SEE COMMENTS 11/27/21 14:45 11/28/21 09:37 Heparin Sodium (Porcine) (Heparin Sodium) 5,000 unit Q8HRS SQ 11/27/21 15:00 11/28/21 06:15 Nicardipine HCl 50 mg/Sodium Chloride 250 ml @ 25 mls/hr CONT PRN IV PER PROTOCOL 11/27/21 14:45 11/28/21 05:07 Nitroglycerin (Nitro-Bid Oint) 1 inch Q6HRS TP 11/27/21 18:00 11/28/21 09:42 DC 11/28/21 06:15 Aspirin (Aspirin Chewable) 81 mg 1X ONCE PO 11/27/21 17:00 11/27/21 17:01 DC 11/27/21 17:50 Aspirin (Ecotrin) 81 mg DAILYWBKFT PO 11/28/21 08:00 11/28/21 08:17 Albuterol Sulfate (Ventolin Neb Soln) 2.5 mg PRN Q4HRS PRN NEB SHORTNESS OF BREATH 11/27/21 17:00 11/28/21 07:27 Potassium Chloride (Klor-Con) 20 meq Q1HR PO 11/28/21 07:00 11/28/21 09:01 DC 11/28/21 09:38 Amlodipine Besylate (Norvasc) 10 mg DAILY PO 11/28/21 09:00 11/28/21 08:19 Isosorbide Mononitrate (Imdur) 30 mg DAILY PO 11/28/21 09:00 11/28/21 08:19 ALLERGIES ALLERGIES: Coded Allergies: lisinopril (Verified Allergy, Severe, angioedema/swelling, 11/27/21) ROS Review of System 14 point ROS evaluated with pertinent positives noted per HPI PHYSICAL EXAM General: Alert, Oriented X3, Cooperative, No acute distress HEENT: Atraumatic, Mucous membr. moist/pink Lungs: Clear to auscultation, Normal air movement Heart: Regular rate (SR), Other (S4, NATHEN 3/6 systolic murmur and 2/6 apical murmur, accentuated S1) Abdomen: Soft Extremities: No cyanosis, Other (1+ bilateral LE pitting edema) Skin: No breakdown, No significant lesion Neuro: Normal speech, Sensation intact Psych/Mental Status: Mental status NL, Mood NL MUSCULOSKELETAL: Full range of motion without pain VITALS/I&O VITALS/I&O: Vital Signs Date Time Temp Pulse Resp B/P (MAP) Pulse Ox O2 Delivery O2 Flow Rate FiO2 11/28/21 09:37 79 166/96 11/28/21 07:28 98 Room Air 11/28/21 07:00 16 11/28/21 04:00 98.6 98.6 I & O 11/27/21 11/27/21 11/28/21 15:00 23:00 07:00 Intake Total 120 ml 1556 ml Output Total 200 ml 300 ml Balance -80 ml 1256 ml LABS Lab: Laboratory Tests Test 11/27/21 11:03 11/27/21 13:00 11/27/21 20:00 11/28/21 05:35 White Blood Count 8.2 x10^3/uL (4.0-11.0) 9.2 x10^3/uL (4.0-11.0) Red Blood Count 4.76 x10^6/uL (4.30-5.70) 5.14 x10^6/uL (4.30-5.70) Hemoglobin 13.0 g/dL (13.0-17.5) 14.0 g/dL (13.0-17.5) Hematocrit 40.2 % (39.0-53.0) 43.3 % (39.0-53.0) Mean Corpuscular Volume 85 fL (79-100) 84 fL (79-100) Mean Corpuscular Hemoglobin 27 pg (25-35) 27 pg (25-35) Mean Corpuscular Hemoglobin Concent 32 g/dL (31-37) 32 g/dL (31-37) Red Cell Distribution Width 15.9 % (11.5-14.5) H 15.6 % (11.5-14.5) H Platelet Count 140 x10^3/uL (140-400) 147 x10^3/uL (140-400) Neutrophils (%) (Auto) 71 % (31-73) 77 % (31-73) H Lymphocytes (%) (Auto) 16 % (24-48) L 14 % (24-48) L Monocytes (%) (Auto) 10 % (0-9) H 8 % (0-9) Eosinophils (%) (Auto) 2 % (0-3) 1 % (0-3) Basophils (%) (Auto) 1 % (0-3) 1 % (0-3) Neutrophils # (Auto) 5.8 x10^3/uL (1.8-7.7) 7.0 x10^3/uL (1.8-7.7) Lymphocytes # (Auto) 1.3 x10^3/uL (1.0-4.8) 1.3 x10^3/uL (1.0-4.8) Monocytes # (Auto) 0.8 x10^3/uL (0.0-1.1) 0.7 x10^3/uL (0.0-1.1) Eosinophils # (Auto) 0.2 x10^3/uL (0.0-0.7) 0.1 x10^3/uL (0.0-0.7) Basophils # (Auto) 0.1 x10^3/uL (0.0-0.2) 0.1 x10^3/uL (0.0-0.2) Sodium Level 145 mmol/L (136-145) 141 mmol/L (136-145) Potassium Level 3.2 mmol/L (3.5-5.1) L 2.9 mmol/L (3.5-5.1) *L Chloride Level 105 mmol/L (98-107) 105 mmol/L (98-107) Carbon Dioxide Level 29 mmol/L (21-32) 25 mmol/L (21-32) Anion Gap 11 (6-14) 11 (6-14) Blood Urea Nitrogen 28 mg/dL (8-26) H 28 mg/dL (8-26) H Creatinine 3.7 mg/dL (0.7-1.3) H 3.4 mg/dL (0.7-1.3) H Estimated GFR (Cockcroft-Gault) 21.1 23.3 BUN/Creatinine Ratio 8 (6-20) 8 (6-20) Glucose Level 101 mg/dL (70-99) H 112 mg/dL (70-99) H Calcium Level 8.2 mg/dL (8.5-10.1) L 8.5 mg/dL (8.5-10.1) Magnesium Level 2.0 mg/dL (1.8-2.4) Total Bilirubin 0.9 mg/dL (0.2-1.0) 0.8 mg/dL (0.2-1.0) Aspartate Amino Transferase (AST) 14 U/L (15-37) L 13 U/L (15-37) L Alanine Aminotransferase (ALT) 22 U/L (16-63) 17 U/L (16-63) Alkaline Phosphatase 55 U/L (46-116) 54 U/L (46-116) Creatine Kinase 588 U/L (39-308) H Troponin I High Sensitivity 49 ng/L (4-75) 60 ng/L (4-75) JV-Pdy-O-Type Natriuretic Peptide 2947 pg/mL (0-124) H Total Protein 6.6 g/dL (6.4-8.2) 7.5 g/dL (6.4-8.2) Albumin 3.5 g/dL (3.4-5.0) 3.6 g/dL (3.4-5.0) Albumin/Globulin Ratio 1.1 (1.0-1.7) 0.9 (1.0-1.7) L Thyroid Stimulating Hormone (TSH) 1.315 uIU/mL (0.358-3.74) Urine Collection Type Unknown Urine Color (Auto) Light yellow Urine Turbidity Clear Urine pH (Auto) 6.5 (<5.0-8.0) Urine Specific [place] 1.019 (1.000-1.030) Urine Protein (Auto) 300 mg/dL (Negative) Urine Glucose (Auto)(UA) Negative mg/dL (Negative) Urine Ketones (Auto) Negative mg/dL (Negative) Urine Blood (Auto) Moderate (Negative) Urine Nitrite Negative (Negative) Urine Bilirubin (Auto) Negative (Negative) Urine Urobilinogen (Auto) Normal mg/dL (Normal) Urine Leukocyte Esterase (Auto) Negative (Negative) Urine RBC 3-5 /HPF (0-2) Urine WBC 1-4 /HPF (0-4) Urine Squamous Epithelial Cells Mod /LPF Urine Bacteria Few /HPF (0-FEW) Urine Hyaline Casts Occasional /HPF Laboratory Tests 11/27/21 11:03 11/28/21 05:35 Laboratory Tests 11/27/21 11:03 11/28/21 05:35 ASSESSMENT/PLAN ASSESSMENT/PLAN 1. Malignant HTN 2. Hypertensive encephalopathy: resolved 3. BRAEDEN on CKD: possible past baseline stage 3, nephrology following 4. Acute CHF with possible combined systolic/diastolic CHF 5. Abnormal EKG: no CP, notable for LVH with LV strain pattern 6. Noncompliance 7. Hypokalemia 8. Allergy to ACEi: angioedema 9. Highly suspect sleep apnea Recommendations 1. Titrate off cardene. Agree with norvasc and imdur. Will add hydralazine and coreg 2. TTE, FLP 3. Significant discussion about compliance and HTN complications 4. Start on ASA. Avoid NSAIDs. Replace K 5. Consider for outpt ischemic workup 6. Consider outpt sleep study MERI FOREMAN APRN Nov 28, 2021 10:14
[2021-11-28 10:33] LABS: CHOLESTEROL/HDL RATIO 2.7
[2021-11-28] MEDS: LORazepam 0.5 MG TABLET PO PRN ×2 (11:26→22:37)
[2021-11-28] MEDS: ALBUTEROL SULFATE 2.5 MG/3 ML NEBU. INH PRN ×2 (11:59→16:39)
[2021-11-28] MEDS: CARVEDILOL 6.25 MG TABLET. PO SCH ×2 (12:15→17:22)
--- NOTE | 2021-11-28 15:29 | NUR ---
SS following for discharge planning. SS reviewed pt chart and discussed with pt RN. Pt is from home with spouse and is currently on room air. Cardiology and Nephrology following. Girish ballesteros. CVC downgrade. SS will continue to follow for discharge planning.
[2021-11-28] MEDS: ACETAMINOPHEN 325 MG TABLET. PO PRN (15:31)
[2021-11-28 16:42] LABS: CREATININE,RANDOM URINE 176.8 mg/dL (Not Establ.)
--- NOTE | 2021-11-28 17:12 | CARD ---
MR#: [id number] Date of Study: 11/28/2021 Ordering Physician: MERI FOREMAN, Referring Physician: MERI FOREMAN Tech: Best Curiel [facility] APPROVED REPORT EXAM: Two-dimensional and M-mode echocardiogram with Doppler and color Doppler. Other Information Quality : GoodHR: 82bpm Rhythm : NSR INDICATION Abnormal ECG RISK FACTORS Hypertension 2D DIMENSIONS Left Atrium(2D)5.3 (1.6-4.0cm)IVSd1.3 (0.7-1.1cm) Aortic Root(2D)4.4 (2.0-3.7cm)LVDd5.1 (3.9-5.9cm) LVOT Diameter2.2 (1.8-2.4cm)PWd1.4 (0.7-1.1cm) LA Fbhtet86 (18-58mL)LVDs3.1 (2.5-4.0cm) FS (%) 39.4 %SV86.4 ml Aortic Valve AoV Peak Lorenzo.217.3cm/sAoV VTI36.3cm AO Peak GR.18.9mmHgLVOT Peak Lorenzo.110.4cm/s AO Mean GR.11mmHgAVA (VMAX)1.88cm2 AI P 1/2 Aeuq260ut Mitral Valve MV E Gaoyiwqm961.0cm/sMV DECEL QQOI209zz MV A Ekqsebsd861.2cm/sE/A Ratio1.1 Pulmonary Valve PV Peak Arfvljoh244.9cm/s Tricuspid Valve TR P. Dsgctyai687km/sTR Peak Gr.23mmHg Pulmonary Vein S1 Jxzwnxkm72.4cm/sD2 Dwahmmvu99.3cm/s LEFT VENTRICLE The left ventricle is normal size. There is mild concentric left ventricular hypertrophy. The left ve ntricular systolic function is normal and the ejection fraction is within normal range. LV ejection f raction of 55-60%. There is normal LV segmental wall motion. Transmitral Doppler flow pattern is Grad e II-pseudonormal filling dynamics. No left ventricle thrombus noted on this study. There is no ventr icular septal defect visualized. There is no left ventricular aneurysm. There is no mass noted in the left ventricle. RIGHT VENTRICLE The right ventricle is normal size. There is normal right ventricular wall thickness. The right ventr icular systolic function is normal. ATRIA The left atrium is mildly dilated. The right atrium size is normal. The interatrial septum is intact with no evidence for an atrial septal defect or patent foramen ovale as noted on 2-D or Doppler imagi ng. AORTIC VALVE The aortic valve is mildly thickened but opens well. The aortic valve is probably trileaflet. Doppler and Color Flow revealed trace aortic regurgitation. There is no significant aortic valvular stenosis . There is no aortic valvular vegetation. MITRAL VALVE The mitral valve is normal in structure and function. There is no evidence of mitral valve prolapse. There is no mitral valve stenosis. Doppler and Color Flow revealed no mitral valve regurgitation note d. TRICUSPID VALVE The tricuspid valve is normal in structure and function. Doppler and Color Flow revealed trace tricus pid regurgitation. The PA pressure was estimated at 27 mmHg. There is no tricuspid valve prolapse or vegetation. There is no tricuspid valve stenosis. PULMONIC VALVE The pulmonary valve is normal in structure and function. Doppler and Color Flow revealed no pulmonic valvular regurgitation. There is no pulmonic valvular stenosis. GREAT VESSELS The aortic root is mildly dilated at 4.4 cm. The ascending aorta is normal in size. The pulmonary art ehsan is normal. The IVC is normal in size and collapses >50% with inspiration. PERICARDIAL EFFUSION There is no pleural effusion. There is no evidence of significant pericardial effusion. Critical Notification Critical Value: No <Conclusion> The left ventricle is normal size. The left ventricular systolic function is normal and the ejection fraction is within normal range. LV ejection fraction of 55-60%. There is mild concentric left ventricular hypertrophy. Doppler and Color Flow revealed trace aortic regurgitation. There is no significant aortic valvular stenosis. Doppler and Color Flow revealed no mitral valve regurgitation noted. Doppler and Color Flow revealed trace tricuspid regurgitation. The PA pressure was estimated at 27 mmHg. The aortic root is mildly dilated. Signed by : Terry Rangel MD Electronically Approved : 11/28/2021 17:11:39
[2021-11-29] VITALS (8 sets, daily range): BP systolic 151–181; BP diastolic 88–113
[2021-11-29] MEDS: hydrALAZINE 20 MG/ML VIAL. IVP PRN ×2 (04:26→19:47)
[2021-11-29 04:53] LABS: ALBUMIN 3.3 g/dL (3.4-5.0); CALCIUM 8.1 mg/dL (8.5-10.1); CREATININE 3.3 mg/dL (0.7-1.3); GFR 24.1; PHOSPHORUS 3.1 mg/dL (2.6-4.7); POTASSIUM 3.2 mmol/L (3.5-5.1)
[2021-11-29] MEDS: HEPARIN for SUB-Q USE 5,000 UNIT/ML VIAL. SQ SCH ×3 (05:39→21:02)
[2021-11-29] MEDS ORDERED: POTASSIUM CHLORIDE 20 MEQ TABLET.ER. PO ONE (08:00)
[2021-11-29] MEDS: ASPIRIN ENTERIC COATED 81 MG TABLET.DR. PO SCH (08:01)
[2021-11-29] MEDS: ISOSORBIDE MONONITRATE ER 30 MG TAB.ER.24H PO SCH (08:01)
[2021-11-29] MEDS: CARVEDILOL 6.25 MG TABLET. PO SCH ×2 (08:01→16:14)
--- NOTE | 2021-11-29 09:31 | PDOC ---
MERI FOREMAN [employer]STRUCTION SUPERVISOR/CARPENTER 11/29/21 0931: CARDIO Progress Notes Date and Time Date of Service 11/29/2021 Time of Evaluation 09 Subjective Subjective: No Chest Pain, No shortness of breath, No Palpitations Vitals Vitals Vital Signs Date Time Temp Pulse Resp B/P (MAP) Pulse Ox O2 Delivery O2 Flow Rate FiO2 11/29/21 08:01 88 159/89 11/29/21 08:00 Room Air 11/29/21 08:00 98.4 16 98 98.4 Weight Weight [ ] Input and Output Intake and Output Intake and Output 11/29/21 07:00 Intake Total 1294 ml Output Total 850 ml Balance 444 ml Intake Oral 500 ml IV Total 794 ml Other 0 ml Output Urine Total 850 ml Laboratory Labs Laboratory Tests Test 11/28/21 15:00 11/29/21 04:00 Urine Random Creatinine 176.8 mg/dL (Not Establ.) Urine Random Total Protein 307.4 mg/dL (Not Establ.) Urine Protein/Creatinine Ratio 1739 mg/g (0-200) Sodium Level 140 mmol/L (136-145) Potassium Level 3.2 mmol/L (3.5-5.1) Chloride Level 107 mmol/L (98-107) Carbon Dioxide Level 23 mmol/L (21-32) Anion Gap 10 (6-14) Blood Urea Nitrogen 27 mg/dL (8-26) Creatinine 3.3 mg/dL (0.7-1.3) Estimated GFR (Cockcroft-Gault) 24.1 Glucose Level 109 mg/dL (70-99) Calcium Level 8.1 mg/dL (8.5-10.1) Phosphorus Level 3.1 mg/dL (2.6-4.7) Creatine Kinase 232 U/L (39-308) Albumin 3.3 g/dL (3.4-5.0) Physical Exam HEENT: Neck Supple W Full Motion Chest: Symmetric LUNGS: Clear to Auscultation Heart: S1S2, RRR (SR) Abdomen: Soft N/T Extremities: No Calf Tenderness Neurology: alert, oriented, follow commands Assessment Assessment 1. Malignant HTN: improved, off cardene 2. Hypertensive encephalopathy: resolved 3. BRAEDEN on CKD: possible past baseline stage 3, nephrology following 4. Acute diastolic CHF: compensated 5. Abnormal EKG: no CP, notable for LVH with LV strain pattern. TTE with normal EF, with LVH no LV WM abnormalities 6. Noncompliance 7. Hypokalemia 8. Allergy to ACEi: angioedema 9. Highly suspect sleep apnea Recommendations 1. Continue current BP regimen 2. Significant discussion about compliance and HTN complications 3. ASA. Avoid NSAIDs. Replace K 4. Consider for outpt ischemic workup 5. Consider outpt sleep study 6. Encouraged to f/u with cardiology Justicifation of Admission Dx: Justifications for Admission: Justification of Admission Dx: Yes SAEID WILKINSON MD 11/29/21 1614: CARDIO Progress Notes Assessment Assessment Patient seen and examined He is feeling better today. I agree with our nurse practitioners assessment and plan. Malignant HTN: improved, off cardene Hypertensive encephalopathy: resolved BRAEDEN on CKD: possible past baseline stage 3, nephrology following Acute diastolic CHF: compensated Abnormal EKG: no CP, notable for LVH with LV strain pattern. TTE with normal EF, with LVH no LV WM abnormalities. Outpatient ischemia evaluation. Noncompliance Hypokalemia. Replacing, renal as above. Allergy to ACEi: angioedema Suspect sleep apnea MERI FOREMAN APRN Nov 29, 2021 09:31 SAEID WILKINSON MD Nov 29, 2021 16:14
--- NOTE | 2021-11-29 10:12 | PDOC ---
DATE OF SERVICE DATE: 11/29/21 TIME: 10:01 SUBJECTIVE ROS States breathing much better States mild headache right after taking neds but resolves quickly OBJECTIVE Vital Signs Vital Signs Date Time Temp Pulse Resp B/P (MAP) Pulse Ox O2 Delivery O2 Flow Rate FiO2 11/29/21 08:01 88 159/89 11/29/21 08:00 Room Air 11/29/21 08:00 98.4 16 98 98.4 I & 0 Intake and Output 11/29/21 06:59 Intake Total 1294 ml Output Total 850 ml Balance 444 ml Intake Oral 500 ml IV Total 794 ml Other 0 ml Output Urine Total 850 ml PHYSICAL EXAM Physical Exam General: NAD HEENT: Atraumatic, PERRLA, EOMI, Mucous membr. moist/pink Neck Supple Lungs: Clear to auscultation, Non labored Heart: S1S2, RRR, no thrills, no rubs, no gallops, no murmurs Abdomen: Normal bowel sounds, Soft, No tenderness, No hepatosplenomegaly, No masses Extremities: No clubbing, No cyanosis, LE 1+ edema bilaterally Skin: No rashes Neuro: grossly normal, No focal deficit Psych/Mental Status: Coopertaive DIAGNOSIS/ASSESSMENT Assessment & Plan BRAEDEN - ATN ; UA low grade Micr hematuria + , Proteinuria + , CK mildly elevated.Creatinine slowly trending down , Monitor . Avoid Nephrotoxins , strict I/O. CKD stage 2/3A - Baseline Cr 1.4-1.9 since 2015 , Cr was 1.15 Aug 2021- per [facility] records . Suspected etiology Uncontrolled HTN . US RK 11.8 cm ;LK 10.1 cm. Reported cw medical renal disease. Proteinuria- Non Nephrotic suspect 2/2 HR=Tnsive Nephrosclerosis HypoKalemia- replace HTNsive Emergency - Renal doppler no e/o RICK .Dangerously high diastolic BP POA- not responsive to labetalo ; admitted to ICU and started on cardene gtt and NTG topical. May consider adding Finerenone (if covered by insurance) or Aldactone if renal function improved to his baseline , Monitor Card managing Shortness of breath - likely acute CHF from above. Resolved Acute CHF with possible combined systolic/diastolic CHF Painless hematuria - per Pt report ; UA no Blood, small RBC + Chronic low back pain: controlled Depressed mood - possibly complicated grief over marital separation. Allergy to ACEi: angioedema COMMENT/RELEVANT DATA Meds Current Medications Medications (Trade) Dose Ordered Sig/Marquita Start Time Stop Time Status Last Admin Dose Admin Acetaminophen (Tylenol) 650 mg PRN Q6HRS PRN 11/27/21 17:00 11/28/21 15:31 650 MG Albuterol Sulfate (Ventolin Neb Soln) 2 mg PRN Q4HRS PRN 11/28/21 07:30 11/29/21 08:08 DC 11/28/21 16:39 2 MG Amlodipine Besylate (Norvasc) 10 mg DAILY 11/28/21 09:00 11/29/21 08:00 10 MG Aspirin (Aspirin Chewable) 81 mg 1X ONCE 11/27/21 17:00 11/27/21 17:01 DC 11/27/21 17:50 81 MG Aspirin (Ecotrin) 81 mg DAILYWBKFT 11/29/21 08:00 11/29/21 08:01 81 MG Carvedilol (Coreg) 6.25 mg BIDWMEALS 11/28/21 12:00 11/29/21 08:01 6.25 MG Fentanyl Citrate (Fentanyl 2ml Vial) 25 mcg PRN Q3HRS PRN 11/27/21 17:00 Heparin Sodium (Porcine) (Heparin Sodium) 5,000 unit Q8HRS 11/27/21 15:00 11/29/21 05:39 5,000 UNIT Hydralazine HCl (Apresoline Inj) 10 mg PRN Q4HRS PRN 11/27/21 14:45 11/29/21 04:26 10 MG Hydralazine HCl (Apresoline) 50 mg TID 11/28/21 14:00 11/29/21 08:01 50 MG Isosorbide Mononitrate (Imdur) 30 mg DAILY 11/28/21 09:00 11/29/21 08:01 30 MG Labetalol HCl (Normodyne Iv Push) 20 mg PRN Q2HR PRN 11/28/21 10:15 Lorazepam (Ativan) 0.5 mg PRN Q8HRS PRN 11/27/21 17:00 11/28/21 22:37 0.5 MG Nicardipine HCl 50 mg/Sodium Chloride 250 ml @ 25 mls/hr CONT PRN 11/27/21 14:45 11/28/21 22:38 25 MLS/HR Nitroglycerin (Nitro-Bid Oint) 1 inch Q6HRS 11/27/21 18:00 11/28/21 09:42 DC 11/28/21 06:15 1 INCH Ondansetron HCl (Zofran) 4 mg PRN Q4HRS PRN 11/27/21 17:00 Potassium Chloride (Klor-Con) 40 meq 1X ONCE 11/29/21 08:00 11/29/21 08:01 DC 11/29/21 08:00 40 MEQ Sodium Chloride (Normal Saline Flush) 3 ml QSHIFT PRN 11/27/21 14:45 Tramadol HCl (Ultram) 50 mg PRN Q6HRS PRN 11/27/21 17:00 Zolpidem Tartrate (Ambien) 5 mg PRN QHS PRN 11/27/21 17:00 11/28/21 22:37 5 MG Lab Laboratory Tests Test 11/28/21 15:00 11/29/21 04:00 Urine Random Creatinine 176.8 mg/dL (Not Establ.) Urine Random Total Protein 307.4 mg/dL (Not Establ.) Urine Protein/Creatinine Ratio 1739 mg/g (0-200) Sodium Level 140 mmol/L (136-145) Potassium Level 3.2 mmol/L (3.5-5.1) Chloride Level 107 mmol/L (98-107) Carbon Dioxide Level 23 mmol/L (21-32) Anion Gap 10 (6-14) Blood Urea Nitrogen 27 mg/dL (8-26) Creatinine 3.3 mg/dL (0.7-1.3) Estimated GFR (Cockcroft-Gault) 24.1 Glucose Level 109 mg/dL (70-99) Calcium Level 8.1 mg/dL (8.5-10.1) Phosphorus Level 3.1 mg/dL (2.6-4.7) Creatine Kinase 232 U/L (39-308) Albumin 3.3 g/dL (3.4-5.0) Results All relevant outside records, renal labs, imaging studies, telemetry/EKG's were reviewed. Justicifation of Admission Dx: Justifications for Admission: Justification of Admission Dx: Yes Acute Renal Failure: 3-Fold Rise in Serum Crea VANDANA BURNS MD 25, 2022 10:11
--- NOTE | 2021-11-29 10:31 | NUR ---
Follow up appointment with Dr. Rdz scheduled for , January 16 at 0930[address] Patient given Dr[address] Rdz's card with follow up time on it. Per Nabor, patient is supposed to take BP BID and if SBP is >150 and DBP is >90 for two days, call the office to let them know and get medications changed.
[2021-11-29] MEDS: traMADol 50 MG TABLET PO PRN ×2 (12:43→20:58)
[2021-11-29] MEDS: ACETAMINOPHEN 325 MG TABLET. PO PRN ×2 (13:33→23:09)
[2021-11-29] MEDS: LABETALOL 20 MG/4 ML DISP.SYRIN. IVP PRN ×2 (13:34→23:10)
--- NOTE | 2021-11-29 16:00 | PDOC ---
[employer] PROGRESS NOTE Date of Service DOS: DATE: 11/29/21 TIME: 15:57 Chief Complaint Chief Complaint HTN emergency - prior compliance difficulties. dangerously high diastolic BP not responsive to labetalol. acut eShortness of breath - acute diastolic CHF from above. BRAEDEN on likely CKD - prob 3A, with proteinuria Painless hematuria - Smokeless tobacco use - prior Alcohol use BMI 30 Chronic low back pain: Hypokalemia - persistent, check mag in AM, 40 meq given today, sched 20 am adjustment disorder - much better today, History of Present Illness History of Present Illness feels much better this AM, still some shortness of breath in ICU with isael gtt, some meds ordered, he stopped all meds 2 years ago, he is unsure of which gave him symptoms and such. some lethargy and some nausea Vitals/I&O Vitals/I&O: Vital Signs Date Time Temp Pulse Resp B/P (MAP) Pulse Ox O2 Delivery O2 Flow Rate FiO2 11/29/21 15:00 98.4 79 17 160/93 (115) 97 Room Air 98.4 I & O 11/28/21 11/28/21 11/29/21 15:00 23:00 07:00 Intake Total 0 ml 1294 ml Output Total 225 ml 425 ml 200 ml Balance -225 ml -425 ml 1094 ml Physical Exam General: Alert, Oriented X3, Cooperative, No acute distress Heart: Regular rate (SR), Other (S4, NATHEN 3/6 systolic murmur and 2/6 apical murmur, accentuated S1) Abdomen: Soft Extremities: No cyanosis, Other (1+ bilateral LE pitting edema) Skin: No breakdown, No significant lesion Labs Labs: Laboratory Tests Test 11/29/21 04:00 Sodium Level 140 mmol/L (136-145) Potassium Level 3.2 mmol/L (3.5-5.1) Chloride Level 107 mmol/L (98-107) Carbon Dioxide Level 23 mmol/L (21-32) Anion Gap 10 (6-14) Blood Urea Nitrogen 27 mg/dL (8-26) Creatinine 3.3 mg/dL (0.7-1.3) Estimated GFR (Cockcroft-Gault) 24.1 Glucose Level 109 mg/dL (70-99) Calcium Level 8.1 mg/dL (8.5-10.1) Phosphorus Level 3.1 mg/dL (2.6-4.7) Creatine Kinase 232 U/L (39-308) Albumin 3.3 g/dL (3.4-5.0) Assessment and Plan Assessmemt and Plan Problems Medical Problems: (1) Abnormal EKG Status: Acute (2) Acute renal failure Status: Acute Comment Review of Relevant I have reviewed the following items martín (where applicable) has been applied. Medications: Current Medications Medications (Trade) Dose Ordered Sig/Marquita Route PRN Reason Start Time Stop Time Status Last Admin Dose Admin Aspirin (Ecotrin) 81 mg DAILYWBKFT PO 11/29/21 08:00 11/29/21 08:01 Potassium Chloride (Klor-Con) 40 meq 1X ONCE PO 11/29/21 08:00 11/29/21 08:01 DC 11/29/21 08:00 Justifications for Admission General Conditions Hemodynamically stable?: Yes Justification for admission: Patient hemodynamically unstable as indicated by persistent orthostatic vital signs changes ie fall of SBP of 20 mmHg or more OR fall in DBP of 10mmHg or more, 1 to 3 minutes after patient sits/stands from recumbent position. Other Justification LULU CLEARY MD Nov 29, 2021 16:00
[2021-11-29] MEDS ORDERED: BUTALB/APAP/CAFEIN 50/325/40MG TABLET. PO PRN (16:15)
[2021-11-29] MEDS: ALBUTEROL SULFATE 2.5 MG/3 ML NEBU. NEB PRN (21:14)
[2021-11-29] MEDS: LORazepam 0.5 MG TABLET PO PRN (23:09)
[2021-11-30] VITALS (8 sets, daily range): BP systolic 142–198; BP diastolic 90–178
[2021-11-30 04:53] LABS: CALCIUM 8.5 mg/dL (8.5-10.1); CREATININE 3.1 mg/dL (0.7-1.3); GFR 25.9; POTASSIUM 3.5 mmol/L (3.5-5.1)
[2021-11-30] MEDS: HEPARIN for SUB-Q USE 5,000 UNIT/ML VIAL. SQ SCH ×3 (06:17→20:40)
[2021-11-30] MEDS: ASPIRIN ENTERIC COATED 81 MG TABLET.DR. PO SCH (08:12)
[2021-11-30] MEDS: ISOSORBIDE MONONITRATE ER 30 MG TAB.ER.24H PO SCH (08:14)
[2021-11-30] MEDS: CARVEDILOL 6.25 MG TABLET. PO SCH ×2 (08:15→16:57)
[2021-11-30] MEDS: POTASSIUM CHLORIDE 20 MEQ TABLET.ER. PO SCH (08:15)
--- NOTE | 2021-11-30 09:58 | PDOC ---
[employer] PROGRESS NOTE Date of Service DOS: DATE: 11/30/21 TIME: 09:56 Chief Complaint Chief Complaint HTN emergency - prior compliance difficulties. dangerously high diastolic BP not responsive to labetalol. acut eShortness of breath - acute diastolic CHF from above. BRAEDEN on likely CKD - prob 3A, with proteinuria Painless hematuria - Smokeless tobacco use - prior Alcohol use BMI 30 Chronic low back pain: Hypokalemia - persistent, check mag in AM, 40 meq given today, sched 20 am adjustment disorder - much better today, History of Present Illness History of Present Illness feels much better this AM, still some shortness of breath in ICU with cardene gtt, some meds ordered, he stopped all meds 2 years ago, he is unsure of which gave him symptoms and such. some lethargy and some nausea 11/30: Transferred from ICU on Imdur, hydralazine, Coreg, amlodipine. He has an 8 out of 10 right-sided headache is posterior and frontal feels like a tension headache with some nausea decreased appetite. Blood pressure systolic in the 160s and diastolic in the low 100s. He is anxious to leave the hospital soon. Ordered Compazine Vitals/I&O Vitals/I&O: Vital Signs Date Time Temp Pulse Resp B/P (MAP) Pulse Ox O2 Delivery O2 Flow Rate FiO2 11/30/21 08:15 74 198/119 11/30/21 08:00 Room Air 11/30/21 07:00 97.8 18 98 97.8 I & O 11/29/21 11/29/21 11/30/21 15:00 23:00 07:00 Intake Total 500 ml 480 ml 150 ml Output Total 350 ml 200 ml 350 ml Balance 150 ml 280 ml -200 ml Physical Exam General: Alert, Oriented X3, Cooperative, No acute distress Heart: Regular rate (SR), Other (S4, NATHEN 3/6 systolic murmur and 2/6 apical murmur, accentuated S1) Abdomen: Soft Extremities: No cyanosis, Other (1+ bilateral LE pitting edema) Skin: No breakdown, No significant lesion Labs Labs: Laboratory Tests Test 11/30/21 03:15 Sodium Level 137 mmol/L (136-145) Potassium Level 3.5 mmol/L (3.5-5.1) Chloride Level 103 mmol/L (98-107) Carbon Dioxide Level 23 mmol/L (21-32) Anion Gap 11 (6-14) Blood Urea Nitrogen 23 mg/dL (8-26) Creatinine 3.1 mg/dL (0.7-1.3) Estimated GFR (Cockcroft-Gault) 25.9 Glucose Level 101 mg/dL (70-99) Calcium Level 8.5 mg/dL (8.5-10.1) Assessment and Plan Assessmemt and Plan Problems Medical Problems: (1) Abnormal EKG Status: Acute (2) Acute renal failure Status: Acute Comment Review of Relevant I have reviewed the following items martín (where applicable) has been applied. Medications: Current Medications Medications (Trade) Dose Ordered Sig/Marquita Route PRN Reason Start Time Stop Time Status Last Admin Dose Admin Potassium Chloride (Klor-Con) 20 meq DAILYWBKFT PO 11/30/21 08:00 11/30/21 08:15 Sumatriptan Succinate (Imitrex) 50 mg PRN Q6HRS PRN PO MIGRAINE HEADACHE 11/29/21 16:15 11/29/21 16:13 Justifications for Admission General Conditions Hemodynamically stable?: Yes Justification for admission: Patient hemodynamically unstable as indicated by persistent orthostatic vital signs changes ie fall of SBP of 20 mmHg or more OR fall in DBP of 10mmHg or more, 1 to 3 minutes after patient sits/stands from recumbent position. Other Justification LEON KAUR MD Nov 30, 2021 09:58
[2021-11-30] MEDS: hydrALAZINE 20 MG/ML VIAL. IVP PRN (10:27)
[2021-11-30] MEDS: ACETAMINOPHEN 325 MG TABLET. PO PRN (10:36)
[2021-11-30] MEDS ORDERED: CARVEDILOL 6.25 MG TABLET. PO ONE (11:00)
[2021-11-30] MEDS: traMADol 50 MG TABLET PO PRN (11:25)
[2021-11-30] MEDS ORDERED: PROCHLORPERAZINE 10 MG/2 ML VIAL. IV ONE (12:00)
--- NOTE | 2021-11-30 12:19 | PDOC ---
DATE OF SERVICE: DOS: DATE: 11/30/21 TIME: 12:07 SUBJECTIVE ROS Acute on chronic renal insufficiency Patient claims he has a headache, he is feeling weak fatigued and tired at this time. CVS: no Orthopnea, no CP RESP: no SOB, no WEISS GI: no Nausea, no Vomiting : no Dysuria, no Urgency OBJECTIVE Vital Signs Vital Signs Date Time Temp Pulse Resp B/P (MAP) Pulse Ox O2 Delivery O2 Flow Rate FiO2 11/30/21 11:27 74 164/108 (126) 11/30/21 11:25 Room Air 11/30/21 10:58 98.4 98 98.4 11/30/21 07:00 18 I & 0 Intake and Output 11/30/21 07:00 Intake Total 1130 ml Output Total 900 ml Balance 230 ml Intake Oral 1130 ml Output Urine Total 900 ml # Voids 1 PHYSICAL EXAM Physical Exam GEN: Awake, Oriented x 3, In no distress EYES: Vision Unchanged, Conjunctiva Normal EN: No EN Drainage, Mucous Membranes moist NECK: no JVD, no JVP, Supple, no Thyromegaly CVS: S1S2, no Murmur, No Gallop, No Rub,no Edema RESP: no Rales, no Rhonchi,no Acc. Muscle Use GI: BS + ve, NO Bruit, Non Tender, Non Distended : no CVA tenderness, no Suprapubic Tenderness DIAGNOSIS/ASSESSMENT Assessment & Plan Acute kidney injury: Suspect progression of underlying chronic kidney disease to current levels. This may very well be his near-term baseline in the setting of well-controlled blood pressures. Current fluid and E-lyte status does not necessitate emergent need for dialysis. Chronic kidney disease stage III A or B: Suspect hypertensive nephrosclerosis. Renal artery duplex to show increased resistive indices. Severe malignant hypertension at presentation, increase hydralazine and add aldactone Proteinuria- Non Nephrotic: Add aldactone HypoKalemia- replace with PO KCL and add aldactone Shortness of breath - Appears to be subjective. Acute CHF with possible combined systolic/diastolic CHF has been suspected but CXR clear OA Chronic low back pain: controlled Depressed mood - possibly complicated grief over marital separation. Allergy to ACEi: angioedema COMMENT/RELEVANT DATA Meds Current Medications Medications (Trade) Dose Ordered Sig/Marquita Start Time Stop Time Status Last Admin Dose Admin Acetaminophen (Tylenol) 650 mg PRN Q6HRS PRN 11/27/21 17:00 11/30/21 10:36 650 MG Acetaminophen/ Butalbital/ Caffeine (Fioricet) 1 tab PRN Q6HRS PRN 11/29/21 16:15 Albuterol Sulfate (Ventolin Neb Soln) 2 mg PRN Q4HRS PRN 11/28/21 07:30 11/29/21 08:08 DC 11/28/21 16:39 2 MG Amlodipine Besylate (Norvasc) 10 mg DAILY 11/28/21 09:00 11/30/21 08:13 10 MG Aspirin (Aspirin Chewable) 81 mg 1X ONCE 11/27/21 17:00 11/27/21 17:01 DC 11/27/21 17:50 81 MG Aspirin (Ecotrin) 81 mg DAILYWBKFT 11/29/21 08:00 11/30/21 08:12 81 MG Carvedilol (Coreg) 6.25 mg 1X ONCE 11/30/21 11:00 11/30/21 11:01 DC 11/30/21 10:27 6.25 MG Fentanyl Citrate (Fentanyl 2ml Vial) 25 mcg PRN Q3HRS PRN 11/27/21 17:00 Heparin Sodium (Porcine) (Heparin Sodium) 5,000 unit Q8HRS 11/27/21 15:00 11/30/21 06:17 5,000 UNIT Hydralazine HCl (Apresoline Inj) 10 mg PRN Q4HRS PRN 11/27/21 14:45 11/30/21 10:27 10 MG Hydralazine HCl (Apresoline) 50 mg TID 11/28/21 14:00 11/30/21 08:14 50 MG Isosorbide Mononitrate (Imdur) 30 mg DAILY 11/28/21 09:00 11/30/21 08:14 30 MG Labetalol HCl (Normodyne Iv Push) 20 mg PRN Q2HR PRN 11/28/21 10:15 11/29/21 23:10 20 MG Lorazepam (Ativan) 0.5 mg PRN Q8HRS PRN 11/27/21 17:00 11/29/21 23:09 0.5 MG Nicardipine HCl 50 mg/Sodium Chloride 250 ml @ 25 mls/hr CONT PRN 11/27/21 14:45 11/30/21 09:58 DC 11/28/21 22:38 25 MLS/HR Nitroglycerin (Nitro-Bid Oint) 1 inch Q6HRS 11/27/21 18:00 11/28/21 09:42 DC 11/28/21 06:15 1 INCH Ondansetron HCl (Zofran) 4 mg PRN Q4HRS PRN 11/27/21 17:00 Potassium Chloride (Klor-Con) 20 meq DAILYWBKFT 11/30/21 08:00 11/30/21 08:15 20 MEQ Prochlorperazine Edisylate (Compazine) 10 mg 1X ONCE 11/30/21 12:00 11/30/21 12:01 DC Sodium Chloride (Normal Saline Flush) 3 ml QSHIFT PRN 11/27/21 14:45 Sumatriptan Succinate (Imitrex) 50 mg PRN Q6HRS PRN 11/29/21 16:15 11/29/21 16:13 50 MG Tramadol HCl (Ultram) 50 mg PRN Q6HRS PRN 11/27/21 17:00 11/30/21 11:25 50 MG Zolpidem Tartrate (Ambien) 5 mg PRN QHS PRN 11/27/21 17:00 11/28/21 22:37 5 MG Lab Laboratory Tests Test 11/30/21 03:15 Sodium Level 137 mmol/L (136-145) Potassium Level 3.5 mmol/L (3.5-5.1) Chloride Level 103 mmol/L (98-107) Carbon Dioxide Level 23 mmol/L (21-32) Anion Gap 11 (6-14) Blood Urea Nitrogen 23 mg/dL (8-26) Creatinine 3.1 mg/dL (0.7-1.3) Estimated GFR (Cockcroft-Gault) 25.9 Glucose Level 101 mg/dL (70-99) Calcium Level 8.5 mg/dL (8.5-10.1) Results All relevant outside records, renal labs, imaging studies, telemetry/EKG's were reviewed. Justicifation of Admission Dx: Justifications for Admission: Justification of Admission Dx: Yes Acute Renal Failure: 3-Fold Rise in Serum Crea CONTRERAS,ACHAL K MD Nov 30, 2021 12:19
[2021-11-30] MEDS: SPIRONOLACTONE 25 MG TABLET PO SCH (12:33)
[2021-11-30] MEDS: LORazepam 0.5 MG TABLET PO PRN ×2 (14:22→22:54)
[2021-11-30] MEDS: LABETALOL 20 MG/4 ML DISP.SYRIN. IVP PRN (14:24)
--- NOTE | 2021-11-30 16:12 | PDOC ---
CARDIOLOGY PROGRESS NOTE SUBJECTIVE: No acute events overnight. OBJECTIVE: Vital Signs/I&O: Vital Signs Date Time Temp Pulse Resp B/P (MAP) Pulse Ox O2 Delivery O2 Flow Rate FiO2 11/30/21 15:00 98.5 75 18 193/178 (183) 99 Room Air 98.5 I & O 11/29/21 11/29/21 11/30/21 15:00 23:00 07:00 Intake Total 500 ml 480 ml 150 ml Output Total 350 ml 200 ml 350 ml Balance 150 ml 280 ml -200 ml Objective: GEN.: No apparent distress. Alert and oriented. HEENT: Head is normocephalic, atraumatic NECK: Supple. LUNGS: Clear to auscultation. HEART: RRR, S1, S2 present. Peripheral pulses intact ABDOMEN: Soft, nontender. Positive bowel sounds. EXTREMITIES: Without any cyanosis. NEUROLOGIC: Normal speech, normal tone PSYCHIATRIC: Normal affect, normal mood. SKIN: No ulcerations CURRENT MEDICATIONS: Current Medications Medications (Trade) Dose Ordered Sig/Marquita Route PRN Reason Start Time Stop Time Status Last Admin Dose Admin Potassium Chloride (Klor-Con) 20 meq DAILYWBKFT PO 11/30/21 08:00 11/30/21 08:15 Sumatriptan Succinate (Imitrex) 50 mg PRN Q6HRS PRN PO MIGRAINE HEADACHE 11/29/21 16:15 11/29/21 16:13 Carvedilol (Coreg) 6.25 mg 1X ONCE PO 11/30/21 11:00 11/30/21 11:01 DC 11/30/21 10:27 Prochlorperazine Edisylate (Compazine) 10 mg 1X ONCE IV 11/30/21 12:00 11/30/21 12:01 DC 11/30/21 12:17 Hydralazine HCl (Apresoline) 100 mg TID PO 11/30/21 12:30 11/30/21 12:34 Spironolactone (Aldactone) 25 mg DAILY PO 11/30/21 12:15 11/30/21 12:33 DIAGNOSTIC TESTING: Labs/echo reviewed. Labs: Laboratory Tests 11/30/21 03:15 Laboratory Tests Test 11/30/21 03:15 Sodium Level 137 mmol/L (136-145) Potassium Level 3.5 mmol/L (3.5-5.1) Chloride Level 103 mmol/L (98-107) Carbon Dioxide Level 23 mmol/L (21-32) Anion Gap 11 (6-14) Blood Urea Nitrogen 23 mg/dL (8-26) Creatinine 3.1 mg/dL (0.7-1.3) H Estimated GFR (Cockcroft-Gault) 25.9 Glucose Level 101 mg/dL (70-99) H Calcium Level 8.5 mg/dL (8.5-10.1) ASSESSMENT: 1. BRAEDEN 2. HTN 3. Diastolic HF PLAN: 1. Continue titration of medical therapy per nephrology. May need alpha blockers. 2. Outpt ischemic evaluation. Supportive care. Justicifation of Admission Dx: Justifications for Admission: Justification of Admission Dx: Yes Acute Renal Failure: 3-Fold Rise in Serum DORIAN Marlow MD Nov 30, 2021 16:12
[2021-12-01 03:00] VITALS: BP 213/129
[2021-12-01] MEDS: LABETALOL 20 MG/4 ML DISP.SYRIN. IVP PRN (03:28)
[2021-12-01 03:58] LABS: CALCIUM 8.5 mg/dL (8.5-10.1); CREATININE 3.1 mg/dL (0.7-1.3); GFR 25.9; POTASSIUM 3.8 mmol/L (3.5-5.1)
[2021-12-01] MEDS: HEPARIN for SUB-Q USE 5,000 UNIT/ML VIAL. SQ SCH ×2 (05:59→14:00)
[2021-12-01 07:00] VITALS: BP 189/107
[2021-12-01] MEDS: POTASSIUM CHLORIDE 20 MEQ TABLET.ER. PO SCH (08:18)
[2021-12-01] MEDS: ASPIRIN ENTERIC COATED 81 MG TABLET.DR. PO SCH (08:18)
[2021-12-01] MEDS: SPIRONOLACTONE 25 MG TABLET PO SCH (08:18)
[2021-12-01] MEDS: CARVEDILOL 6.25 MG TABLET. PO SCH (08:19)
[2021-12-01] MEDS: ISOSORBIDE MONONITRATE ER 30 MG TAB.ER.24H PO SCH (08:19)
[2021-12-01] MEDS ORDERED: CARVEDILOL 12.5 MG TABLET. PO ONE (10:45)
[2021-12-01] MEDS ORDERED: ISOSORBIDE MONONITRATE ER 30 MG TAB.ER.24H PO ONE (10:45)
--- NOTE | 2021-12-01 10:50 | PDOC ---
Provider Note Date of Service: DATE: 12/01/21 TIME: 10:48 Provider Note No new changes. He does not have insurance. Will need support at [facility]. Add doxazosin if able to afford. Justifications for Admission General Conditions Hemodynamically stable?: Yes Justification for admission: Patient hemodynamically unstable as indicated by persistent orthostatic vital signs changes ie fall of SBP of 20 mmHg or more OR fall in DBP of 10mmHg or more, 1 to 3 minutes after patient sits/stands from recumbent position. Other Justification DORIAN BOB MD Dec 01, 2021 10:50
[2021-12-01 11:00] VITALS: BP 152/96
[2021-12-01] MEDS ORDERED: CARV25TA2 PO (11:39)
[2021-12-01] MEDS ORDERED: ASPI-886 PO (11:39)
[2021-12-01] MEDS ORDERED: LORA0.5T96 PO (11:39)
[2021-12-01] MEDS ORDERED: AMLO-187 PO (11:39)
[2021-12-01] MEDS ORDERED: ISOS60TA55 PO (11:39)
[2021-12-01] MEDS ORDERED: ASPIRIN 325 MG TABLET PO ONE (11:45)
--- NOTE | 2021-12-01 11:46 | PDOC ---
[employer] PROGRESS NOTE Date of Service DOS: DATE: 12/01/21 TIME: 11:28 Chief Complaint Chief Complaint HTN emergency - prior compliance difficulties. dangerously high diastolic BP not responsive to labetalol. acut eShortness of breath - acute diastolic CHF from above. BRAEDEN on likely CKD - prob 3A, with proteinuria Painless hematuria - Smokeless tobacco use - prior Alcohol use BMI 30 Chronic low back pain: Hypokalemia - persistent, check mag in AM, 40 meq given today, sched 20 am adjustment disorder - much better today, History of Present Illness History of Present Illness Mr Ahumada is a 51-year-old male with PMHx depression, HTN who presents to the emergency department at the behest of his primary care physician at [facility] [place] due to elevated blood pressure. Over the past month he has noted shortness of breath, dizziness, and intermittent mental fogginess as well as upset stomach that has been progressive. He also notes some lower extremity swelling in his ankles abdominal fullness and wheezing. He does have a as needed albuterol inhaler and has tried to stop smoking is occasional cigar with no good effect and improvemen t in shortness of breath. He has seen blood in his urine when he wakes up in the morning for the past 3 weeks. Patient denies chest pain, chest palpitations, chest or nasal congestion, denies headaches, denies abdominal pain, vomiting or diarrhea, denies recent fever or chills. No travel or sick contacts. Previously had angioedema due to lisinopril. He notes 5 years ago he was on 3 other blood pressure medications but he vomited them up daily though he was drinking at the time. He was under a lot of stress back then as he was undergoing marital separation. 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 He has a 12-year-old daughter he shares custody with. He does occasionally smoke cigars when he is driving and about once a month uses marijuana. He does no longer drink alcohol. He does note he has been trying to keep his mood positive but does have some episodic crying. WBC 8.2, Hb 13, platelets 140, NA 145, K3.2, BUN 28, CR 3.7, glucose 101, magnesium 2, LFTs within normal laboratory limits, high-sensitivity troponin is 49, NT proBNP is 2947, a urinalysis with proteinuria hematuria. CT head with no acute abnormality Chest radiograph with cardiomegaly no other abnormalities. EKG sinus rate of 74 bpm meets criteria for LVH, some T WI in 1 to V5 and V6 not notable on prior EKG. Admitted to ICU for further care after multiple doses of IV labetalol did not bring diastolic BP < 140mmHg, started on cardene in ED. Consults: Nephrology, Cardiology 11/30: Transferred from ICU on Imdur, hydralazine, Coreg, amlodipine. He has an 8 out of 10 right-sided headache is posterior and frontal feels like a tension headache with some nausea decreased appetite. Blood pressure systolic in the 160s and diastolic in the low 100s. He is anxious to leave the hospital soon. Ordered Compazine with good effect. 12/01: Headache improved. Blood pressure better controlled on Coreg, Imdur, hydralazine, spironolactone. Based on his self-pay status for dollar medications will include carvedilol 25 mg twice daily isosorbide 60 mg daily and amlodipine 10 mg daily and will have a prescription for hydralazine 50 mg 3 times daily to take if his blood pressures continue to be greater than systolic 150 at home. Vitals/I&O Vitals/I&O: Vital Signs Date Time Temp Pulse Resp B/P (MAP) Pulse Ox O2 Delivery O2 Flow Rate FiO2 12/01/21 11:24 71 152/96 12/01/21 08:00 Room Air 12/01/21 07:00 98.6 20 96 98.6 I & O 11/30/21 11/30/21 12/01/21 15:00 23:00 07:00 Intake Total 250 ml 50 ml 900 ml Output Total 675 ml 200 ml 300 ml Balance -425 ml -150 ml 600 ml Physical Exam General: Alert, Oriented X3, Cooperative, No acute distress Heart: Regular rate (SR), Other (S4, NATHEN 3/6 systolic murmur and 2/6 apical murmur, accentuated S1) Abdomen: Soft Extremities: No cyanosis, Other (1+ bilateral LE pitting edema) Skin: No breakdown, No significant lesion Labs Labs: Laboratory Tests Test 12/01/21 03:15 Sodium Level 134 mmol/L (136-145) Potassium Level 3.8 mmol/L (3.5-5.1) Chloride Level 102 mmol/L (98-107) Carbon Dioxide Level 26 mmol/L (21-32) Anion Gap 6 (6-14) Blood Urea Nitrogen 25 mg/dL (8-26) Creatinine 3.1 mg/dL (0.7-1.3) Estimated GFR (Cockcroft-Gault) 25.9 Glucose Level 102 mg/dL (70-99) Calcium Level 8.5 mg/dL (8.5-10.1) Assessment and Plan Assessmemt and Plan Problems Medical Problems: (1) Abnormal EKG Status: Acute (2) Acute renal failure Status: Acute Comment Review of Relevant I have reviewed the following items martín (where applicable) has been applied. Medications: Current Medications Medications (Trade) Dose Ordered Sig/Marquita Route PRN Reason Start Time Stop Time Status Last Admin Dose Admin Carvedilol (Coreg) 12.5 mg BIDWMEALS PO 11/30/21 17:00 12/01/21 10:52 DC 12/01/21 08:19 Prochlorperazine Edisylate (Compazine) 10 mg 1X ONCE IV 11/30/21 12:00 11/30/21 12:01 DC 11/30/21 12:17 Hydralazine HCl (Apresoline) 100 mg TID PO 11/30/21 12:30 12/01/21 08:18 Spironolactone (Aldactone) 25 mg DAILY PO 11/30/21 12:15 12/01/21 08:18 Carvedilol (Coreg) 12.5 mg 1X ONCE PO 12/01/21 10:45 12/01/21 10:54 DC 12/01/21 11:24 Isosorbide Mononitrate (Imdur) 30 mg 1X ONCE PO 12/01/21 10:45 12/01/21 10:54 DC 12/01/21 11:24 Justifications for Admission General Conditions Hemodynamically stable?: Yes Justification for admission: Patient hemodynamically unstable as indicated by persistent orthostatic vital signs changes ie fall of SBP of 20 mmHg or more OR fall in DBP of 10mmHg or more, 1 to 3 minutes after patient sits/stands from recumbent position. Other Justification LEON KAUR MD Dec 01, 2021 11:46
--- NOTE | 2021-12-01 11:47 | PDOC3 ---
Discharge Summary Visit Information Date of Admission: Nov 27, 2021 Date of Discharge: Dec 01, 2021 Admitting Diagnosis: Hypertensive emergency Final Diagnosis Problems Medical Problems: (1) Abnormal EKG Status: Acute (2) Acute renal failure Status: Acute Brief Hospital Course Allergies Allergies Coded Allergies Type Severity Reaction Last Updated Verified lisinopril Allergy Severe angioedema/swelling 11/27/21 Yes Vital Signs Vital Signs Date Time Temp Pulse Resp B/P (MAP) Pulse Ox O2 Delivery O2 Flow Rate FiO2 12/01/21 11:24 71 152/96 12/01/21 08:00 Room Air 12/01/21 07:00 98.6 20 96 98.6 Lab Results Laboratory Tests Test 11/30/21 03:15 12/01/21 03:15 Sodium Level 137 mmol/L (136-145) 134 mmol/L (136-145) Potassium Level 3.5 mmol/L (3.5-5.1) 3.8 mmol/L (3.5-5.1) Chloride Level 103 mmol/L (98-107) 102 mmol/L (98-107) Carbon Dioxide Level 23 mmol/L (21-32) 26 mmol/L (21-32) Anion Gap 11 (6-14) 6 (6-14) Blood Urea Nitrogen 23 mg/dL (8-26) 25 mg/dL (8-26) Creatinine 3.1 mg/dL (0.7-1.3) 3.1 mg/dL (0.7-1.3) Estimated GFR (Cockcroft-Gault) 25.9 25.9 Glucose Level 101 mg/dL (70-99) 102 mg/dL (70-99) Calcium Level 8.5 mg/dL (8.5-10.1) 8.5 mg/dL (8.5-10.1) Laboratory Tests Test 12/01/21 03:15 Sodium Level 134 mmol/L (136-145) Potassium Level 3.8 mmol/L (3.5-5.1) Chloride Level 102 mmol/L (98-107) Carbon Dioxide Level 26 mmol/L (21-32) Anion Gap 6 (6-14) Blood Urea Nitrogen 25 mg/dL (8-26) Creatinine 3.1 mg/dL (0.7-1.3) Estimated GFR (Cockcroft-Gault) 25.9 Glucose Level 102 mg/dL (70-99) Calcium Level 8.5 mg/dL (8.5-10.1) Brief Hospital Course Mr Ahumada is a 51-year-old male with PMHx depression, HTN who presents to the emergency department at the behest of his primary care physician at [facility] due to elevated blood pressure. Over the past month he has noted shortness of breath, dizziness, and intermittent mental fogginess as well as upset stomach that has been progressive. He also notes some lower extremity swelling in his ankles abdominal fullness and wheezing. He does have a as needed albuterol inhaler and has tried to stop smoking is occasional cigar with no good effect and improvement in shortness of breath. He has seen blood in his urine when he wakes up in the morning for the past 3 weeks. Patient denies chest pain, chest palpitations, chest or nasal congestion, denies headaches, denies abdominal pain, vomiting or diarrhea, denies recent fever or chills. No travel or sick contacts. Previously had angioedema due to lisinopril. He notes 5 years ago he was on 3 other blood pressure medications but he vomited them up daily though he was drinking at the time. He was under a lot of stress back then as he was undergoing marital separation. 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 He has a 12-year-old daughter he shares custody with. He does occasionally smoke cigars when he is driving and about once a month uses marijuana. He does no longer drink alcohol. He does note he has been trying to keep his mood positive but does have some episodic crying. WBC 8.2, Hb 13, platelets 140, NA 145, K3.2, BUN 28, CR 3.7, glucose 101, magnesium 2, LFTs within normal laboratory limits, high-sensitivity troponin is 49, NT proBNP is 2947, a urinalysis with proteinuria hematuria. CT head with no acute abnormality Chest radiograph with cardiomegaly no other abnormalities. EKG sinus rate of 74 bpm meets criteria for LVH, some T WI in 1 to V5 and V6 not notable on prior EKG. Admitted to ICU for further care after multiple doses of IV labetalol did not bring diastolic BP < 140mmHg, started on cardene in ED. Consults: Nephrology, Cardiology 11/30: Transferred from ICU on Imdur, hydralazine, Coreg, amlodipine. He has an 8 out of 10 right-sided headache is posterior and frontal feels like a tension headache with some nausea decreased appetite. Blood pressure systolic in the 160s and diastolic in the low 100s. He is anxious to leave the hospital soon. Ordered Compazine with good effect. 12/01: Headache improved. Blood pressure better controlled on Coreg, Imdur, hydralazine, spironolactone. Based on his self-pay status for dollar medications will include carvedilol 25 mg twice daily isosorbide 60 mg daily and amlodipine 10 mg daily and will have a prescription for hydralazine 50 mg 3 times daily to take if his blood pressures continue to be greater than systolic 150 at home. Echocardiogram with normal ejection fraction. Renal Dopplers with no renal artery stenosis Problem list: HTN emergency - prior compliance difficulties. dangerously high diastolic BP not responsive to labetalol. acute Shortness of breath - acute diastolic CHF from above. BRAEDEN on likely CKD - prob 3A, with proteinuria Painless hematuria - Smokeless tobacco use - prior Alcohol use BMI 30 Chronic low back pain: Hypokalemia - persistent, check mag in AM, 40 meq given today, sched 20 am adjustment disorder - much better today, Greater than 30 minutes spent on d/c home with self care. Discharge Information Condition at Discharge: Improved Follow Up: Weeks Disposition/Orders: D/C to Home Scheduled Amlodipine Besylate (Amlodipine Besylate) 10 Mg Tablet, 10 MG PO DAILY for HTN for 90 Days, #90 Ref 3 Prescribed by: LEON KAUR MD on 12/01/21 1139 Aspirin (Aspirin Ec) 81 Mg Tablet.dr, 81 MG PO DAILYWBKFT for HTN for 90 Days, #90 Ref 3 Prescribed by: LEON KAUR MD on 12/01/21 1139 Carvedilol (Carvedilol) 25 Mg Tablet, 25 MG PO BIDWMEALS for CARDIAC for 90 Days, #180 Ref 3 Prescribed by: LEON KAUR MD on 12/01/21 1139 Isosorbide Mononitrate (Isosorbide Mononitrate Er) 60 Mg Tab.er.24h, 1 TAB PO DAILY for HTN for 90 Days, #90 Ref 3 Prescribed by: LEON KAUR MD on 12/01/21 1139 Scheduled PRN Lorazepam (Ativan) 0.5 Mg Tablet, 0.5 MG PO PRN Q8HRS PRN for ANXIETY / AGITATION for 6 Days, #18 Prescribed by: LEON KAUR MD on 12/01/21 1141 Discontinued Medications Albuterol Sulfate (Proair Hfa) 8.5 Gm Hfa.aer.ad, 1 PUFF INH PRN Q4HRS PRN for SHORTNESS OF BREATH, (Reported) Entered as Reported by: JEAN PIERRE HOWARD on 11/27/211754 Last Action: Continued on 11/28/21727 by TAYLER BARKER RN Citalopram Hydrobromide (Citalopram Hbr) 40 Mg Tablet, 40 MG PO DAILY for , (Reported) Entered as Reported by: URSULA CRUZ RN on 10/14/19335 Cyclobenzaprine Hcl (Cyclobenzaprine Hcl) 10 Mg Tablet, 10 MG PO BID for , (Reported) Entered as Reported by: URSULA CRUZ RN on 10/14/19335 Hydralazine Hcl (Hydralazine Hcl) 50 Mg Tablet, 1 TAB PO TID for HTN, #90 Ref 5 (Reported) Entered as Reported by: ALEXA LACEY on 10/18/191421 Hydrochlorothiazide (Hydrochlorothiazide Tablet ) 25 Mg Tablet, 25 MG PO DAILY for DIURETIC, Ref 0 (Reported) Entered as Reported by: ALEXA LACEY on 10/18/191421 Last Action: Reviewed on 11/27/211754 by JEAN PIERRE HOWARD Hydrochlorothiazide (Hydrochlorothiazide Tablet ) 25 Mg Tablet, 25 MG PO DAILY for DIURETIC, #30 Ref 0 Prescribed by: KATIANA DIAZ DO on 08/31/21 0747 Metoprolol Tartrate (Metoprolol Tartrate) 25 Mg Tablet, 1 TAB PO BID, #60 Ref 1 Prescribed by: KATIANA DIAZ DO on 08/31/21 0737 Last Action: Reviewed on 11/27/211754 by JEAN PIERRE HOWARD Potassium Chloride (Klor-Con 8) 8 Meq Tablet.er, 8 MEQ PO DAILY for , (Reported) Entered as Reported by: URSULA CRUZ RN on 10/14/19335 Justicifation of Admission Dx: Justifications for Admission: Justification of Admission Dx: Yes Acute Renal Failure: 3-Fold Rise in Serum Crea LEON KAUR MD Dec 01, 2021 11:47
[2021-12-01] MEDS ORDERED: DOXA8TAB59 PO (13:09)
[2021-12-01 14:30] VITALS: BP 143/84
[2021-12-01 14:49] VITALS: BP 143/84
--- NOTE | 2021-12-01 16:20 | NUR ---
Discharge Note: BOB THURSTON [address] [place] [id number] Discharge instructions and discharge home medications reviewed with Patient and a copy given. All questions have been answered and understanding verbalized. The following instructions and handouts were given: discharge instructions, med list, med education, HTN/BP/AKF education, resources for pcps Discontinued lines and drains: Peripheral IV intact. Patient discharged to Home or Self Care with Self via Wheelchair at 1620.
[2021-12-01] MEDS ORDERED: CARVEDILOL 6.25 MG TABLET. PO SCH (17:00)
== END 2021-12-01 16:20 | disposition home or self-care (01) | DRG 291 ==
LOC: ER 10:27 → ED HOLD 14:45 → 1 WEST ICU 15:54 → 6 SOUTH 11-29 12:44
PROVIDERS: ADMIT Internal Medicine; ATTEND Internal Medicine
DX: I13.0 Hypertensive heart and chronic kidney disease with heart failure and stage 1 through stage 4 chronic kidney disease, or unspecified chronic kidney disease (principal); I50.31 Acute diastolic (congestive) heart failure; I16.1 Hypertensive emergency; I67.4 Hypertensive encephalopathy; N17.9 Acute kidney failure, unspecified; N02.9 Recurrent and persistent hematuria with unspecified morphologic changes; E66.9 Obesity, unspecified; E87.6 Hypokalemia; F10.10 Alcohol abuse, uncomplicated; F12.90 Cannabis use, unspecified, uncomplicated; F17.210 Nicotine dependence, cigarettes, uncomplicated; F32.A Depression, unspecified; F40.240 Claustrophobia; F43.20 Adjustment disorder, unspecified; G89.29 Other chronic pain; T78.3XXA Angioneurotic edema, initial encounter; Z68.30 Body mass index [BMI] 30.0-30.9, adult; Z82.3 Family history of stroke; Z82.49 Family history of ischemic heart disease and other diseases of the circulatory system; Z88.8 Allergy status to other drugs, medicaments and biological substances; Z91.19 Patient's noncompliance with other medical treatment and regimen; F41.9 Anxiety disorder, unspecified; M19.90 Unspecified osteoarthritis, unspecified site; N18.31 Chronic kidney disease, stage 3a
CPT/HCPCS: 36415; 70450; 71045; 76770; 80048; 80053; 80061; 80069; 81001; 82550; 82570; 83735; 83880; 84156; 84443; 84484; 85025; 93005; 93306; 94640; 96374; 96376; J0360; J0780; J1644; J3490; J7050; 99285-25; C8929; G0378; J7030; J7613